=== PATIENT | male | born 1940 | race Caucasian/White ===

== ENCOUNTER 2019-04-17 09:39 | Inpatient (IN) | payer OTHER, MEDICARE ==
[2019-04-17] MEDS ORDERED: NITROGLYCERIN OINT 1 INCH/GM PACKET TOPICAL STA (09:54)
[2019-04-17] MEDS ORDERED: ASPIRIN 81 MG PO STA (09:54)
--- NOTE | 2019-04-17 09:58 | ED ---
General Adult HPI - General Chief complaint: Chest Pain Stated complaint: Chest Pain Time Seen by Provider: 04/17/19 09:45 Source: patient, RN notes reviewed Mode of arrival: ambulatory Limitations: no limitations - History of Present Illness Initial comments: Patient is a pleasant 79-year-old male presenting to the emergency Department with complaints of chest discomfort. Symptoms have been occurring for close to a month. Symptoms occur almost daily. Symptoms occur for sometimes hours at a time. Discomfort is only mild at this point. Symptoms are continuing and not getting better in general. Patient states symptoms do get worse with exertion at times. Patient does have some mild dyspnea at times. No nausea. No diaphoresis. No history of similar symptoms prior to the last month. No leg pain or leg swelling. Discomfort feels like pressure. - Related Data Home Medications Medication Instructions Recorded Confirmed Aspirin EC [Ecotrin Low Dose] 81 mg PO DAILY 04/17/19 04/17/19 Sennosides/Docusate Sodium 1 tab PO DAILY 04/17/19 04/17/19 [Senna-S Laxative Tablet] traMADol HCL [Ultram] 50 mg PO DAILY 04/17/19 04/17/19 Allergies Allergy/AdvReac Type Severity Reaction Status Date / Time No Known Allergies Allergy Verified 04/17/19 10:00 Review of Systems ROS Statement: Those systems with pertinent positive or pertinent negative responses have been documented in the HPI. ROS Other: All systems not noted in ROS Statement are negative. Constitutional: Denies: fever Eyes: Denies: eye pain ENT: Denies: ear pain Respiratory: Reports: as per HPI. Denies: cough Cardiovascular: Reports: chest pain Endocrine: Denies: fatigue Gastrointestinal: Denies: abdominal pain Genitourinary: Denies: dysuria Musculoskeletal: Denies: back pain Skin: Denies: rash Neurological: Denies: weakness Past Medical History Additional Past Medical History / Comment(s): Arthitis History of Any Multi-Drug Resistant Organisms: None Reported Past Surgical History: No Surgical Hx Reported Past Psychological History: No Psychological Hx Reported Smoking Status: Former smoker Past Alcohol Use History: Daily Past Drug Use History: None Reported General Exam Limitations: no limitations General appearance: alert, in no apparent distress Head exam: Present: atraumatic Eye exam: Present: normal appearance, PERRL ENT exam: Present: normal oropharynx Neck exam: Present: normal inspection Respiratory exam: Present: normal lung sounds bilaterally. Absent: chest wall tenderness Cardiovascular Exam: Present: regular rate, normal rhythm Expanded Peripheral pulses: 2+: Radial (R), Radial (L), Posterior Tibialis (R), Posterior Tibialis (L), Dorsalis Pedis (R), Dorsalis Pedis (L) GI/Abdominal exam: Present: soft. Absent: tenderness Extremities exam: Present: normal inspection. Absent: pedal edema, calf tenderness Neurological exam: Present: alert Psychiatric exam: Present: normal affect, normal mood Skin exam: Present: normal color Course Vital Signs 04/17/19 09:41 Temperature 97.4 F L Pulse Rate 64 Respiratory 22 Rate Blood Pressure 189/77 O2 Sat by Pulse 98 Oximetry EKG Findings - EKG Comments: EKG Findings:: Sinus bradycardia 55. MD 178. QRS 126. QT 450. QTC 4:30. Left axis. Left bundle branch block. Nonspecific ST-T. Medical Decision Making - Medical Decision Making Patient reevaluated and resting comfortably in bed. Patient and family updated on results and plan. Case was discussed in detail with Dr. Alvarado, covering for the [facility], who will admit. - Lab Data Result diagrams: 04/17/19 09:59 04/17/19 09:59 Lab Results 04/17/19 04/17/19 04/17/19 Range/Units 09:59 09:59 09:59 WBC 5.1 (3.8-10.6) k/uL RBC 4.82 (4.30-5.90) m/uL Hgb 16.3 (13.0-17.5) gm/dL Hct 48.4 (39.0-53.0) % MCV 100.4 H (80.0-100.0) fL MCH 33.8 (25.0-35.0) pg MCHC 33.7 (31.0-37.0) g/dL RDW 13.5 (11.5-15.5) % Plt Count 193 (150-450) k/uL Neutrophils % 54 % Lymphocytes % 29 % Monocytes % 7 % Eosinophils % 5 % Basophils % 2 % Neutrophils # 2.7 (1.3-7.7) k/uL Lymphocytes # 1.5 (1.0-4.8) k/uL Monocytes # 0.4 (0-1.0) k/uL Eosinophils # 0.3 (0-0.7) k/uL Basophils # 0.1 (0-0.2) k/uL PT 10.5 (9.0-12.0) sec INR 1.0 (<1.2) APTT 25.8 (22.0-30.0) sec Sodium 136 L (137-145) mmol/L Potassium 4.8 (3.5-5.1) mmol/L Chloride 102 (98-107) mmol/L Carbon Dioxide 27 (22-30) mmol/L Anion Gap 7 mmol/L BUN 10 (9-20) mg/dL Creatinine 0.91 (0.66-1.25) mg/dL Est GFR (CKD-EPI)AfAm >90 (>60 ml/min/1.73 sqM) Est GFR (CKD-EPI)NonAf 79 (>60 ml/min/1.73 sqM) Glucose 84 (74-99) mg/dL Calcium 9.5 (8.4-10.2) mg/dL Magnesium 1.8 (1.6-2.3) mg/dL Total Bilirubin 1.3 (0.2-1.3) mg/dL AST 30 (17-59) U/L ALT 16 L (21-72) U/L Alkaline Phosphatase 62 (38-126) U/L Creatine Kinase 39 L (55-170) U/L Troponin I (0.000-0.034) ng/mL NT-Pro-B Natriuret Pep pg/mL Total Protein 7.4 (6.3-8.2) g/dL Albumin 4.2 (3.5-5.0) g/dL 04/17/19 04/17/19 Range/Units 09:59 09:59 WBC (3.8-10.6) k/uL RBC (4.30-5.90) m/uL Hgb (13.0-17.5) gm/dL Hct (39.0-53.0) % MCV (80.0-100.0) fL MCH (25.0-35.0) pg MCHC (31.0-37.0) g/dL RDW (11.5-15.5) % Plt Count (150-450) k/uL Neutrophils % % Lymphocytes % % Monocytes % % Eosinophils % % Basophils % % Neutrophils # (1.3-7.7) k/uL Lymphocytes # (1.0-4.8) k/uL Monocytes # (0-1.0) k/uL Eosinophils # (0-0.7) k/uL Basophils # (0-0.2) k/uL PT (9.0-12.0) sec INR (<1.2) APTT (22.0-30.0) sec Sodium (137-145) mmol/L Potassium (3.5-5.1) mmol/L Chloride (98-107) mmol/L Carbon Dioxide (22-30) mmol/L Anion Gap mmol/L BUN (9-20) mg/dL Creatinine (0.66-1.25) mg/dL Est GFR (CKD-EPI)AfAm (>60 ml/min/1.73 sqM) Est GFR (CKD-EPI)NonAf (>60 ml/min/1.73 sqM) Glucose (74-99) mg/dL Calcium (8.4-10.2) mg/dL Magnesium (1.6-2.3) mg/dL Total Bilirubin (0.2-1.3) mg/dL AST (17-59) U/L ALT (21-72) U/L Alkaline Phosphatase (38-126) U/L Creatine Kinase (55-170) U/L Troponin I <0.012 (0.000-0.034) ng/mL NT-Pro-B Natriuret Pep 537 pg/mL Total Protein (6.3-8.2) g/dL Albumin (3.5-5.0) g/dL - Radiology Data Radiology results: image reviewed (X-ray shows no acute process) Disposition Clinical Impression: Chest pain Disposition: ADMITTED IP TO THIS HOSP Is patient prescribed a controlled substance at d/c from ED?: No Referrals: [facility],Clinic [Primary Care Provider] - 1-2 days Decision Time: 11:59
--- NOTE | 2019-04-17 10:22 | XR ---
EXAMINATION TYPE: XR chest 2V DATE OF EXAM: 04/17/2019 COMPARISON: NONE HISTORY: Chest pain. TECHNIQUE: Frontal and lateral views of the chest are obtained. FINDINGS: Some patchy bibasilar scarring and/or atelectasis is present. There is no suspicious focal air space opacity, pleural effusion, or pneumothorax seen. The cardiac silhouette size is within no rmal limits. The osseous structures are intact. IMPRESSION: No suspicious acute cardiopulmonary process.
[2019-04-17 10:23] LABS: Prothrombin Time 10.5 sec (9.0-12.0)
[2019-04-17 10:24] LABS: Partial Thromboplastin Time 25.8 sec (22.0-30.0)
[2019-04-17 10:29] LABS: Basophils # (A) 0.1 k/uL (0-0.2); Basophils % (A) 2 %; Eosinophils # (A) 0.3 k/uL (0-0.7); Eosinophils % (A) 5 %; HCT 48.4 % (39.0-53.0); HGB 16.3 gm/dL (13.0-17.5); Lymphocytes # (A) 1.5 k/uL (1.0-4.8); Lymphocytes % (A) 29 %; MCH 33.8 pg (25.0-35.0); MCHC 33.7 g/dL (31.0-37.0); MCV 100.4 fL (80.0-100.0); Mean Platelet Volume 7.7; Monocytes # (A) 0.4 k/uL (0-1.0); Monocytes % (A) 7 %; Neutrophils # (A) 2.7 k/uL (1.3-7.7); Neutrophils % (A) 54 %; Platelet Count 193 k/uL (150-450); RBC 4.82 m/uL (4.30-5.90); RDW 13.5 % (11.5-15.5); WBC 5.1 k/uL (3.8-10.6)
[2019-04-17 10:30] LABS: ALT 16 U/L (21-72); AST 30 U/L (17-59); African American GFR (CKD) >90 (>60 ml/min/1.73 sqM); Albumin 4.2 g/dL (3.5-5.0); Alkaline Phosphatase 62 U/L (38-126); Anion Gap 7 mmol/L; Blood Urea Nitrogen 10 mg/dL (9-20); Calcium 9.5 mg/dL (8.4-10.2); Carbon Dioxide 27 mmol/L (22-30); Chloride 102 mmol/L (98-107); Creatine Kinase 39 U/L (55-170); Glucose 84 mg/dL (74-99); Magnesium 1.8 mg/dL (1.6-2.3); Sodium 136 mmol/L (137-145); Total Bilirubin 1.3 mg/dL (0.2-1.3); Total Protein 7.4 g/dL (6.3-8.2)
[2019-04-17 11:03] LABS: Potassium 4.8 mmol/L (3.5-5.1)
[2019-04-17] MEDS ORDERED: NITROGLYCERIN SL TABS 0.4 MG TAB SUBLINGUAL PRN (11:55)
[2019-04-17] MEDS ORDERED: PANTOPRAZOLE 40 MG TABLET PO STA (12:39)
--- NOTE | 2019-04-17 12:59 | P.HPIM ---
History of Present Illness 79-year-old very pleasant gentleman came in with complaints of chest discomfort has been going on for about a month on and off whenever he has discomfort it lasts for hours in the retrosternal area without any radiation anywhere mild pressure-like sensation denied any lightheadedness shadows of breath lightheadedness diaphoresis associated with that. Patient denied any pruritic competent of chest pain denied any association with food. Patient or any cough or fever. Patient facet of troponin is negative, patient had a left bundle branch block on the EKG although I do not have any old EKG to compare with Will make cardiology aware of this. Review of Systems REVIEW OF SYSTEMS: CONSTITUTIONAL: No fever, no malaise, no fatigue. HEENT: No recent visual problems or hearing problems. Denied any sore throat. CARDIOVASCULAR: No orthopnea, PND, no palpitations, no syncope. PULMONARY: No shortness of breath, no cough, no hemoptysis. GASTROINTESTINAL: No diarrhea, no nausea, no vomiting, no abdominal pain. NEUROLOGICAL: No headaches, no weakness, no numbness. HEMATOLOGICAL: Denies any bleeding or petechiae. GENITOURINARY: Denies any burning micturition, frequency, or urgency. MUSCULOSKELETAL/RHEUMATOLOGICAL: Denies any joint pain, swelling, or any muscle pain. ENDOCRINE: Denies any polyuria or polydipsia. The rest of the 14-point review of systems is negative. Past Medical History Additional Past Medical History / Comment(s): Arthitis History of Any Multi-Drug Resistant Organisms: None Reported Past Surgical History: No Surgical Hx Reported Past Psychological History: No Psychological Hx Reported Smoking Status: Former smoker Past Alcohol Use History: Daily Past Drug Use History: None Reported Medications and Allergies Home Medications Medication Instructions Recorded Confirmed Type Aspirin EC [Ecotrin Low Dose] 81 mg PO DAILY 04/17/19 04/17/19 History Sennosides/Docusate Sodium 1 tab PO DAILY 04/17/19 04/17/19 History [Senna-S Laxative Tablet] traMADol HCL [Ultram] 50 mg PO DAILY 04/17/19 04/17/19 History Allergies Allergy/AdvReac Type Severity Reaction Status Date / Time No Known Allergies Allergy Verified 04/17/19 10:00 Physical Exam Vitals: Vital Signs Temp Pulse Pulse Resp BP BP Pulse Ox 04/17/19 12:28 97.5 F L 60 18 197/65 04/17/19 12:00 98.0 F 04/17/19 11:58 60 16 166/75 100 04/17/19 09:41 97.4 F L 64 22 189/77 98 Intake and Output 04/16/19 04/17/19 04/17/19 22:59 06:59 14:59 Other: Weight 65.771 kg PHYSICAL EXAMINATION: GENERAL: The patient is alert and oriented x3, not in any acute distress. Well developed, well nourished. HEENT: Pupils are round and equally reacting to light. EOMI. No scleral icterus. No conjunctival pallor. Normocephalic, atraumatic. No pharyngeal erythema. No thyromegaly. CARDIOVASCULAR: S1 and S2 present. No murmurs, rubs, or gallops. PULMONARY: Chest is clear to auscultation, no wheezing or crackles. ABDOMEN: Soft, nontender, nondistended, normoactive bowel sounds. No palpable organomegaly. MUSCULOSKELETAL: No joint swelling or deformity. EXTREMITIES: No cyanosis, clubbing, or pedal edema. NEUROLOGICAL: Gross neurological examination did not reveal any focal deficits. SKIN: No rashes. Results CBC & Chem 7: 04/17/19 09:59 04/17/19 09:59 Labs: Abnormal Lab Results - Last 24 Hours (Table) 04/17/19 04/17/19 Range/Units 09:59 09:59 MCV 100.4 H (80.0-100.0) fL Sodium 136 L (137-145) mmol/L ALT 16 L (21-72) U/L Creatine Kinase 39 L (55-170) U/L Assessment and Plan Plan: -Chest pain we'll rule out unstable angina, acute coronary syndromes, had left bundle branch block on the EKG no evidence this is new although there is no EKG to compare with cardiology was consulted troponin is negative and 2 more sets of troponins and EKGs will be obtained. Elevated blood pressure: We'll monitor before I start him on any medications -Elevated MCV will obtain a B12 level although patient is not anemic his probably hemoconcentrated
[2019-04-17] MEDS: LOSARTAN 50 MG TAB PO SCH (13:08)
--- NOTE | 2019-04-17 13:11 | P.CRDCN ---
History of Present Illness History of present illness: This is a pleasant 79-year-old male past medical history significant for arthritis, former nicotine dependence and daily alcohol intake. He denies prior history of coronary artery disease, hypertension, dyslipidemia or diabetes mellitus. We have been asked to see him in consultation for chest pain. He states intermittently for the last 1-month he has been having a pressure sens ation in the anterior chest. The discomfort typically starts at some point in the morning and persists throughout the day with no specific aggravating or alleviating factors. He denies radiation or movement of the pain to the arm, back, neck or jaw. He denies associated shortness of breath, dizziness, nausea, vomiting, palpitations or diaphoresis. He is seen and examined sitting up in bed in no acute distress. He does feel pressure in his chest currently that is mild. Nitropaste applied per ED with no relief to speak of. EKG reveals sinus bradycardia, heart rate 55, left axis deviation and left bundle branch block. No old EKG for comparison. Chest xray negative for an acute cardiopulmonary process. Laboratory data reviewed, CBC unremarkable, sodium 136, potassium 4.8, creatinine 0.91, magnesium 1.8, cardiac enzymes negative x1, proBNP 537. Daily cardiac meds include aspirin 325 mg daily. No old records to review. At the time of my exam: CONSTITUTIONAL: Denies fever. Denies chills. EYES: Denies blurred vision. Denies vision changes. Denies eye pain. EARS, NOSE, MOUTH & THROAT: Denies headache. Denies sore throat. Denies ear pain. CARDIOVASCULAR: Complains of chest pain. Denies shortness of breath. Denies orthopnea. Denies PND. Denies palpitations. RESPIRATORY: Denies cough. GASTROINTESTINAL: Denies abdominal pain. Denies diarrhea. Denies constipation. Denies nausea. Denies vomiting. MUSCULOSKELETAL: Denies myalgias. INTEGUMENTARY: Denies pruitis. Denies rash. NEUROLOGIC: Denies numbness. Denies tingling. Denies weakness. PSYCHIATRIC: Denies anxiety. Denies depression. ENDOCRINE: Denies fatigue. Denies weight change. Denies polydipsia. Denies polyurina. GENITOURINARY: Denies burning, hematuria or urgency with micturation. HEMATOLOGIC: Denies history of anemia. Denies bleeding. Blood pressure 197/65 heart rate 60 afebrile maintaining oxygen saturation on room air GENERAL: This is a 79-year-old male in no apparent distress at the time of my examination. HEENT: Head is atraumatic, normocephalic. Pupils are equal, round. Sclerae anicteric. Conjunctivae are clear. Mucous membranes of the mouth are moist. Neck is supple. There is no jugular venous distention. No carotid bruit is heard. LUNGS: Clear to auscultation no wheezes, rales or rhonchi. No chest wall tenderness is noted on palpation or with deep breathing. HEART: Regular rate and rhythm with systolic ejection murmur at the base and left sternal border, no rubs or gallops. S1 and S2 heard. ABDOMEN: Soft, nontender. Bowel sounds are heard. No organomegaly noted. EXTREMITIES: No evidence of peripheral edema and no calf tenderness noted. VASCULAR: Radial and dorsalis pedis pulses palpated, no evidence of clubbing. NEUROLOGIC: Patient is awake, alert and oriented x3. ASSESSMENT Chest pain, quite constant and atypical for the last 1-month. Systolic murmur. Per the patient he has had a murmur since . Left bundle branch block on EKG, called CT clinic in [place] and they have no prior documented EKG. Daily alcohol intake Former nicotine dependence PLAN Obtain 2D echocardiogram and doppler study to assess cardiac structure and function. Continue to obtain serial cardiac enzymes to rule out an acute event. Initiate on losartan, decrease aspirin to 81 mg daily. Also give protonix 40 mg now and assess for relief of pain. No old EKG for comparison, no EKG at CT in the past. Further recommendations to follow. Will consider stress testing vs coronary angiography tomorrow based on clinical course. Thank you kindly for this consultation. Nurse Practitioner note has been reviewed, I agree with a documented findings and plan of care. Patient was seen and examined. Past Medical History Additional Past Medical History / Comment(s): Arthitis History of Any Multi-Drug Resistant Organisms: None Reported Past Surgical History: No Surgical Hx Reported Past Psychological History: No Psychological Hx Reported Smoking Status: Former smoker Past Alcohol Use History: Daily Past Drug Use History: None Reported Medications and Allergies Home Medications Medication Instructions Recorded Confirmed Type Aspirin EC [Ecotrin Low Dose] 81 mg PO DAILY 04/17/19 04/17/19 History Sennosides/Docusate Sodium 1 tab PO DAILY 04/17/19 04/17/19 History [Senna-S Laxative Tablet] traMADol HCL [Ultram] 50 mg PO DAILY 04/17/19 04/17/19 History Allergies Allergy/AdvReac Type Severity Reaction Status Date / Time No Known Allergies Allergy Verified 04/17/19 10:00 Physical Exam Vitals: Vital Signs Temp Pulse Pulse Resp BP BP Pulse Ox 04/17/19 12:28 97.5 F L 60 18 197/65 04/17/19 12:00 98.0 F 04/17/19 11:58 60 16 166/75 100 04/17/19 09:41 97.4 F L 64 22 189/77 98 Intake and Output 04/16/19 04/17/19 04/17/19 22:59 06:59 14:59 Other: Weight 65.771 kg Results 04/17/19 09:59 04/17/19 09:59 Cardiac Enzymes 04/17/19 04/17/19 Range/Units 09:59 09:59 AST 30 (17-59) U/L Troponin I <0.012 (0.000-0.034) ng/mL Coagulation 04/17/19 Range/Units 09:59 PT 10.5 (9.0-12.0) sec APTT 25.8 (22.0-30.0) sec CBC 04/17/19 Range/Units 09:59 WBC 5.1 (3.8-10.6) k/uL RBC 4.82 (4.30-5.90) m/uL Hgb 16.3 (13.0-17.5) gm/dL Hct 48.4 (39.0-53.0) % Plt Count 193 (150-450) k/uL Comprehensive Metabolic Panel 04/17/19 Range/Units 09:59 Sodium 136 L (137-145) mmol/L Potassium 4.8 (3.5-5.1) mmol/L Chloride 102 (98-107) mmol/L Carbon Dioxide 27 (22-30) mmol/L BUN 10 (9-20) mg/dL Creatinine 0.91 (0.66-1.25) mg/dL Glucose 84 (74-99) mg/dL Calcium 9.5 (8.4-10.2) mg/dL AST 30 (17-59) U/L ALT 16 L (21-72) U/L Alkaline Phosphatase 62 (38-126) U/L Total Protein 7.4 (6.3-8.2) g/dL Albumin 4.2 (3.5-5.0) g/dL Current Medications Generic Name Dose Route Start Last Admin Trade Name Freq PRN Reason Stop Dose Admin Aspirin 325 mg 04/18/19 09:00 Aspirin PO DAILY KENNETH Nitroglycerin 0.4 mg 04/17/19 11:55 Nitrostat SUBLINGUAL Q5M PRN Chest Pain Nitroglycerin 1 inch 04/17/19 18:00 Nitro-Bid Oint TOPICAL Q6HR KENNETH Sodium Chloride 10 ml 04/17/19 21:00 Saline Flush IV BID KENNETH Intake and Output 04/16/19 04/17/19 04/17/19 22:59 06:59 14:59 Other: Weight 65.771 kg Patient Weight 04/18/19 06:59 Weight 65.771 kg 04/17/19 09:59 04/17/19 09:59
[2019-04-17 13:29] VITALS: BMI 22.0
[2019-04-17] MEDS: NITROGLYCERIN OINT 1 INCH/GM PACKET TOPICAL SCH (19:24)
[2019-04-18] MEDS: NITROGLYCERIN OINT 1 INCH/GM PACKET TOPICAL SCH ×2 (00:14→01:47)
[2019-04-18 02:59] LABS: Cholesterol 218 mg/dL (<200); HDL Cholesterol 81 mg/dL (40-60); LDL Cholesterol,Calculated 121 mg/dL (0-99); Triglycerides 80 mg/dL (<150)
--- NOTE | 2019-04-18 08:07 | P.PN ---
Progress Note - Text Progress Note Date: 04/18/19 This is a pleasant 79-year-old gentleman who presented to the hospital with chest discomfort and ruled out for acute coronary event. On follow-up with him today, he denies any chest pain or chest discomfort or shortness of breath. The cardiac enzymes came in to be unremarkable. The chest x-ray did not show any acute abnormalities. The EKG showed BP. I did recommend proceeding with a stress test to rule out severe underlying coronary artery disease. Also I did recommend obtaining an echocardiogram was Doppler. The patient does have murmur at the apex
[2019-04-18] MEDS ORDERED: AMINOPHYLLINE 500 MG/20 ML VIAL IV PRN (08:33)
[2019-04-18] MEDS ORDERED: CAFFEINE CITRATE 60 MG/3 ML VIAL IV PRN (08:33)
[2019-04-18] MEDS ORDERED: DIPYRIDAMOLE IV ONE (08:45)
[2019-04-18] MEDS ORDERED: SODIUM CHLORIDE 0.9% IV ONE (08:45)
[2019-04-18] MEDS ORDERED: ASPIRIN 325 MG TAB PO SCH (09:00)
--- NOTE | 2019-04-18 11:57 | ECHOF ---
Referral Reason:cp, etoh use daily MEASUREMENTS -------- HEIGHT: 172.7 cm WEIGHT: 65.8 kg BP: 197/65 RVIDd: 3.3 cm (< 3.3) IVSd: 1.8 cm (0.6 - 1.1) LVIDd: 3.2 cm (3.9 - 5.3) LVPWd: 1.5 cm (0.6 - 1.1) IVSs: 1.8 cm LVIDs: 2.2 cm LVPWs: 2.2 cm LAESV Index (A-L): 30.08 ml/m Ao Diam: 3.1 cm (2.0 - 3.7) AV Cusp: 1.4 cm (1.5 - 2.6) LA Diam: 4.1 cm (2.7 - 3.8) MV E Krish: 1.05 m/s MV DecT: 169 ms MV A Krish: 1.61 m/s MV E/A Ratio: 0.65 AV maxP.70 mmHg AV meanP.05 mmHg AR PHT: 633 ms RAP: 5.00 mmHg RVSP: 46.01 mmHg FINDINGS -------- Sinus rhythm. The left ventricular size is normal. There is moderate concentric left ventricular hypertrophy. O verall left ventricular systolic function is normal with, an EF between 65 - 70 %. Mitral Doppler i nflow pattern suggests diastolic filling abnormality. The right ventricle is normal in size. Left atrium is mildly dilated by volume. The right atrial size is normal. Interatrial and interventricular septum intact. Mobile interatrial septum. Aortic valve is trileaflet and is moderately thickened. There is qwyu-fr-stpxmvib aortic regurgitat ion. Mild aortic stenosis with peak/mean pressure gradient of 26.70mmHg / 13.05mmHg , the aortic va lve area by continuity equation is 1.4cm. Peak/mean gradient across the valve is 26.70mmHg / 13.05 mmHg. The mitral valve leaflets are moderately thickened. Mild mitral annular calcification present. Mi ld mitral regurgitation is present. Vsat-rm-ajuksyns tricuspid regurgitation present. There is moderate pulmonary hypertension. The r ight ventricular systolic pressure, as measured by Doppler, is 46.01mmHg. There is no pulmonic regurgitation present. The aortic root size is normal. The inferior vena cava was not well visualized. There is no pericardial effusion. CONCLUSIONS -------- 1. Sinus rhythm. 2. The left ventricular size is normal. 3. There is moderate concentric left ventricular hypertrophy. 4. Overall left ventricular systolic function is normal with, an EF between 65 - 70 %. 5. Mitral Doppler inflow pattern suggests diastolic filling abnormality. 6. The right ventricle is normal in size. 7. Left atrium is mildly dilated by volume. 8. The right atrial size is normal. 9. Interatrial and interventricular septum intact. 10. Mobile interatrial septum. 11. Aortic valve is trileaflet and is moderately thickened. 12. There is pdfi-hd-[id number] aortic regurgitation. 13. Mild aortic stenosis with peak/mean pressure gradient of 26.70mmHg / 13.05mmHg , the aortic valve area by continuity equation is 1.4cm. 14. Peak/mean gradient across the valve is 26.70mmHg / 13.05mmHg. 15. The mitral valve leaflets are moderately thickened. 16. Mild mitral annular calcification present. 17. Mild mitral regurgitation is present. 18. Zbor-oc-twpvyeqr tricuspid regurgitation present. 19. There is moderate pulmonary hypertension. 20. The right ventricular systolic pressure, as measured by Doppler, is 46.01mmHg. 21. There is no pulmonic regurgitation present. 22. The aortic root size is normal. 23. The inferior vena cava was not well visualized. 24. There is no pericardial effusion. WELDING MACHINE OPERATOR ARC: Antonietta Stroud RDCS
[2019-04-18] MEDS: traMADol 50 MG TAB PO SCH (11:58)
[2019-04-18] MEDS: ASPIRIN 81 MG PO SCH (11:58)
[2019-04-18] MEDS: LOSARTAN 50 MG TAB PO SCH (11:58)
[2019-04-18] MEDS: SENNOSIDES-DOCUSATE SODIUM 1 EACH TAB PO SCH (11:58)
--- NOTE | 2019-04-18 12:04 | NM ---
EXAMINATION TYPE: NM stress persantine cardiolit DATE OF EXAM: 04/18/2019 COMPARISON: NONE HISTORY: Chest pain with family history of coronary artery disease and tobacco abuse TECHNIQUE: After the intravenous administration of 9.82 mCi Tc 99m Sestamibi - Cardiolite resting SP ECT images acquired 50 minutes post injection. The patient received 37.5 mg Persantine, 26.4 mCi Tc 99m Sestamibi - Stress images obtained 45 minute s post injection FINDINGS: Review of stress and rest SPECT images demonstrates no distinct perfusion abnormality. Gated analysi s shows normal wall motion with an estimated left ventricular ejection fraction of 72 %. TID is eleva briana at 1.38. Increased ventricular cavity caliber on stress imaging corresponds to the elevated TID v alue. IMPRESSION: Enlargement of the ventricular chamber caliber on stress imaging corresponds to an abnormally elevate d TID that can be seen in balanced 3 vessel ischemia or cardiomyopathy. Coronary angiography could be considered.
--- NOTE | 2019-04-18 12:51 | EST ---
EXERCISE STRESS DATE OF SERVICE: 04/18/2019 AGE: 79 SEX: Male HT: 68" WT: 145 pounds PROTOCOL: Persantine Cardiolite STAGE: DURATION OF EXERCISE: HEART RATE REST: 86 BLOOD PRESSURE REST: 133/58 MAXIMUM HEART RATE ACHIEVED: 89 MAXIMUM BLOOD PRESSURE: 138/64 85% MPHR: 118 100% MPHR: 139 METS: INDICATIONS: Chest pain. CLINICAL INFORMATION: STRESS DATA: Heart rate is 86, pressure is 133/58 mmHg. Baseline EKG showed sinus mechanism with LBBB. There was 37.5 mg of Persantine given. Max heart rate was 89 beats per minute. Maximum pressure was 138/64 mmHg. Clinically the patient did not have any symptoms. The EKG did not show any significant ST or T-wave abnormalities concerning for ischemia. CONCLUSION: 1. Nondiagnostic electrocardiogram stress testing in response to Persantine. 2. Please follow up on the Cardiolite portion on separate report from radiology department. MMODL / IJN: [id number] /
[2019-04-18] MEDS ORDERED: ATORVASTATIN 80 MG TAB PO STA (12:52)
[2019-04-18] MEDS ORDERED: ALPRAZolam 0.5 MG TAB PO PRN (12:52)
[2019-04-18] MEDS ORDERED: ALPRAZolam 0.25 MG TAB PO PRN (12:52)
[2019-04-18] MEDS ORDERED: SODIUM CHLORIDE 0.9% 1,000 ML in EMPTY BAG 1 BAG IV ONE (12:52)
[2019-04-18] MEDS ORDERED: ASPIRIN 81 MG PO ONE (13:00)
--- NOTE | 2019-04-18 13:20 | P.PN ---
Progress Note - Text Stress test results discussed with the patient and his family was at the bedside. We recommend proceeding with cardiac catheterization for definitive diagnosis. I have discussed the risks, benefits and alternative therapies for the above-mentioned procedure and for both sedation/analgesia as well as necessary blood product administration, if indicated, as they pertain to this patient. The patient has indicated understanding and acceptance of the risks and procedures discussed. Questions have been answered appropriately and he is agreeable to move forward with the above stated procedure.
[2019-04-18] MEDS ORDERED: MIDAZOLAM (PF) 2 MG/2 ML VIAL IVP ONE (13:21)
[2019-04-18] MEDS ORDERED: SODIUM CHLORIDE 0.9% 1,000 ML IV ONE (13:22)
[2019-04-18] MEDS ORDERED: LIDOCAINE 2% INJ 20 MG/ML SQ ONE (13:26)
[2019-04-18] MEDS ORDERED: BIVALIRUDIN BOLUS 250 MG/50 ML IV ONE (13:42)
[2019-04-18] MEDS ORDERED: BIVALIRUDIN 250 MG in SODIUM CHLORIDE 0.9% 50 ML IV ONE (13:43)
[2019-04-18] MEDS ORDERED: ADENOSINE 90 MG in SODIUM CHLORIDE 0.9% 60 ML IVP ONE (13:49)
[2019-04-18] MEDS ORDERED: IOPAMIDOL-370 125ML BTL INJ ONE (13:53)
[2019-04-18] MEDS ORDERED: RX INFO: IV CONTRAST WAS GIVEN 1 EACH MISC MISCELLANE PRN (13:54)
[2019-04-18] MEDS ORDERED: SODIUM CHLORIDE 0.9% 1,000 ML IV SCH (14:00)
--- NOTE | 2019-04-18 14:26 | P.PN ---
Subjective Patient given with complaints of chest pain rule out acute currently syndromes after which patient underwent stress test which was abnormal because of which patient will undergo cardiac catheterization today. Patient had elevated MCV because of which obtained a B12 level which was low will give a B12 injection. Constitutional: Denied any fatigue denied any fever. Cardio vascular: denied any chest pain, palpitations Gastrointestinal denied any nausea vomiting Pulmonary: Denied any shortness of breath cough Neurologic denied any new focal deficits All inpatient medications were reviewed and appropriate changes in these medications as dictated in the interval history and assessment and plan. Objective - Vital Signs Vital signs: Vital Signs Temp 97.7 F 04/18/19 11:47 Pulse 77 04/18/19 12:00 Resp 18 04/18/19 12:00 BP 155/73 04/18/19 11:47 Pulse Ox 95 04/18/19 11:47 Intake & Output 04/17/19 04/18/19 04/18/19 18:59 06:59 18:59 Intake Total 134 Balance 134 Weight 65.771 kg 65.771 kg Intake: IV 134 Other: # Voids 1 - Exam PHYSICAL EXAMINATION: GENERAL: The patient is alert and oriented x3, not in any acute distress. Well developed, well nourished. HEENT: Pupils are round and equally reacting to light. EOMI. No scleral icterus. No conjunctival pallor. Normocephalic, atraumatic. No pharyngeal erythema. No thyromegaly. CARDIOVASCULAR: S1 and S2 present. No murmurs, rubs, or gallops. PULMONARY: Chest is clear to auscultation, no wheezing or crackles. ABDOMEN: Soft, nontender, nondistended, normoactive bowel sounds. No palpable organomegaly. MUSCULOSKELETAL: No joint swelling or deformity. EXTREMITIES: No cyanosis, clubbing, or pedal edema. NEUROLOGICAL: Gross neurological examination did not reveal any focal deficits. SKIN: No rashes. - Labs CBC & Chem 7: 04/17/19 09:59 04/17/19 09:59 Labs: Abnormal Lab Results - Last 24 Hours (Table) 04/17/19 04/17/19 Range/Units :59 16:24 Cholesterol 218 H (<200) mg/dL LDL Cholesterol, Calc 121 H (0-99) mg/dL HDL Cholesterol 81 H (40-60) mg/dL Vitamin B12 171.0 L (200.0-944.0) pg/mL Assessment and Plan Plan: -Chest pain: Patient has pasta stress test. Patient will undergo cardiac catheterization today. Elevated blood pressure: Was started on antidepressant medications. Cardiology with improved blood pressure. -Elevated MCV B-12 levels are extremely low, will order B12 injection.
[2019-04-18] MEDS ORDERED: CYANOCOBALAMIN 1,000 MCG/ML 1 ML VIAL IM ONE (15:00)
--- NOTE | 2019-04-18 19:48 | CC ---
CARDIAC CATHETERIZATION REPORT PERFORMING PHYSICIAN: Marino Perea MD, dashboard developer. PROCEDURES PERFORMED: 1. Selective right and left coronary angiogram. 2. Left heart catheterization. 3. Fractional flow reserve (FFR) of the left anterior descending artery. INDICATION: This is a pleasant 79-year-old gentleman with hypertension and dyslipidemia who presented to the hospital with chest discomfort and ruled out for acute coronary event. He underwent a myocardial perfusion imaging stress test and that revealed signs of transient ischemic dilatation of the left ventricle, normally concerning for severe triple-vessel coronary artery disease or left main coronary artery disease. Because of that, a heart catheterization was advised. APPROACH: Right common femoral artery. COMPLICATIONS: None. LEVEL OF SEDATION: Moderate, with sedation length of 27 minutes. PROCEDURE DESCRIPTION: After obtaining informed consent, the patient was brought to the cardiac petroleum laboratory technician. The right common femoral artery was cannulated using micropuncture technique. The micropuncture wire passed easily. Then I placed a 6-Monegasque sheath in the right common femoral artery. Subsequently I did selective right and left coronary angiogram using JR4 and JL4 catheters. Left heart catheterization was performed. After that I did left heart catheterization using a 6-Monegasque pigtail catheter. After that I did FFR of the LAD. Please see separate paragraph for that. SELECTIVE CORONARY ANGIOGRAM: 1. The right coronary artery is a small- to medium-caliber vessel and is a nondominant vessel. It is angiographically normal. 2. The left main is calcified and seems to be angiographically normal. It bifurcates into a dominant left circumflex and left anterior descending artery. 3. The left circumflex is a large-caliber vessel. It is a nondominant vessel. The proximal circumflex appeared to have mild disease only. The mid circumflex has mild disease only as well and the circumflex distally appeared to be angiographically normal and bifurcates into PDA and PLV branches. Both appeared to be angiographically normal. The circumflex gives rise to first and branches. They have mild disease only. 4. The LAD. The proximal LAD appeared to be angiographically normal. The mid LAD has a tubular lesion that appeared to be in the range of 50% to 60% and we did FFR that came in to be nonischemic at 0.86. The LAD distally appeared to be normal. The LAD gives rise to the first diagonal branch, which is a large-caliber vessel and seems to be angiographically normal. HEMODYNAMICS: The left ventricular end-diastolic pressure was about 10 mmHg without significant gradient across the aortic valve. FFR OF THE LAD: Anticoagulation was initiated using Angiomax. After zeroing the Doppler wire and equalizing between the Doppler wire and the guiding catheter, which was a JL3.5 guiding catheter, we did an FFR per IV adenosine infusion and the FFR came in to be at 0.86, which is nonischemic. CONCLUSION: Intermediate disease involving the mid LAD. FFR was applied and came in to be nonischemic at 0.86. POST-PROCEDURE MANAGEMENT: 1. Maximize medical treatment. 2. Aggressive cholesterol control. 3. Follow up with the patient. MMODL / IJN: [id number] /
[2019-04-18] MEDS: METOPROLOL TARTRATE 25 MG TAB PO SCH (20:26)
[2019-04-19] MEDS: traMADol 50 MG TAB PO SCH (08:03)
[2019-04-19] MEDS: ASPIRIN 81 MG PO SCH (08:03)
[2019-04-19] MEDS: SENNOSIDES-DOCUSATE SODIUM 1 EACH TAB PO SCH (08:03)
[2019-04-19] MEDS: LOSARTAN 50 MG TAB PO SCH (08:03)
[2019-04-19] MEDS: METOPROLOL TARTRATE 25 MG TAB PO SCH (08:03)
[2019-04-19 08:47] VITALS: BP 103/61; PULSE 60; RESP 16; TEMP 98.3
[2019-04-19] MEDS ORDERED: ATORVASTATIN 40 MG TAB PO SCH (09:00)
--- NOTE | 2019-04-19 12:19 | PN ---
PROGRESS NOTE Diogenes is an 79-year-old gentleman who is admitted to hospital with chest pain and underwent cardiac catheterization. He also had a stress test. Cardiac catheterization revealed intermediate lesion within the mid LAD with the FFR came out at 0.86, which was nonischemic and patient was advised medical therapy. This morning patient is doing well and is free of symptoms. PHYSICAL EXAMINATION: On exam, comfortable at rest. Vital signs are stable. Groin is free of bleeding, bruit, hematoma. Foot pulses are intact. LABS: Labs show a hemoglobin of 16.3, potassium is 4.8. ASSESSMENT: Precordial chest pain, status post cardiac cath, advised medical therapy. The patient will be discharged home on aspirin, Lipitor, Cozaar, and Lopressor. Follow up with Dr. Perea in the office. MMODL / IJN: [id number] /
--- NOTE | 2019-04-19 13:44 | P.DS ---
Providers Date of admission: 04/18/19 15:46 Attending physician: Shine Alvarado Consults: 04/17/19 11:55 Consult Physician Urgent Consulting Provider: William Cazares Consult Reason/Comments: cp Do you want consulting provider notified?: Yes Primary care physician: [facility] Course: 79-year-old that came in with chest pain had's sisters underwent cardiac catheterization which showed some atherosclerotic vascular disease but there is no occlusive disease that will require any intervention because of which patient will be discharged on low-dose of metoprolol long-acting and statin patient will not require any other antidepressant medication. PHYSICAL EXAMINATION: GENERAL: The patient is alert and oriented x3, not in any acute distress. Well developed, well nourished. HEENT: Pupils are round and equally reacting to light. EOMI. No scleral icterus. No conjunctival pallor. Normocephalic, atraumatic. No pharyngeal erythema. No thyromegaly. CARDIOVASCULAR: S1 and S2 present. No murmurs, rubs, or gallops. PULMONARY: Chest is clear to auscultation, no wheezing or crackles. ABDOMEN: Soft, nontender, nondistended, normoactive bowel sounds. No palpable organomegaly. MUSCULOSKELETAL: No joint swelling or deformity. EXTREMITIES: No cyanosis, clubbing, or pedal edema. NEUROLOGICAL: Gross neurological examination did not reveal any focal deficits. SKIN: No rashes. His refer to my progress note for further details of hospitalization course and other medical problems are addressed here. Plan - Discharge Summary Discharge Rx Participant: No New Discharge Prescriptions: New Atorvastatin [Lipitor] 40 mg PO DAILY #30 tab Nitroglycerin Sl Tabs [Nitrostat] 0.4 mg SUBLINGUAL Q5M PRN #30 tab PRN Reason: Chest Pain Metoprolol Succinate (ER) [Toprol Xl] 25 mg PO DAILY #30 tab Continue traMADol HCL [Ultram] 50 mg PO DAILY Aspirin EC [Ecotrin Low Dose] 81 mg PO DAILY Sennosides/Docusate Sodium [Senna-S Laxative Tablet] 1 tab PO DAILY Discharge Medication List Aspirin EC [Ecotrin Low Dose] 81 mg PO DAILY 04/17/19 [History] Sennosides/Docusate Sodium [Senna-S Laxative Tablet] 1 tab PO DAILY 09/12/19 [History] traMADol HCL [Ultram] 50 mg PO DAILY 04/17/19 [History] Atorvastatin [Lipitor] 40 mg PO DAILY #30 tab 04/19/19 [Rx] Metoprolol Succinate (ER) [Toprol Xl] 25 mg PO DAILY #30 tab 04/19/19 [Rx] Nitroglycerin Sl Tabs [Nitrostat] 0.4 mg SUBLINGUAL Q5M PRN #30 tab 04/19/19 [Rx] Follow up Appointment(s)/Referral(s): Marino Perea MD [STAFF PHYSICIAN] - 04/22/19 4:45 pm (APPOINTMENT MADE ON @ 4:45PM) [facility],Clinic [Primary Care Provider] - 3 Days Patient Instructions/Handouts: *Surgery [facility] - After Heart Catheterization - Creative Services Writer Instructions Activity/Diet/Wound Care/Special Instructions: *NO LIFTING, PUSHING, OR PULLING ANYTHING OVER 10 POUNDS FOR 5 DAYS. *NO DRIVING FOR 3 DAYS *YOU CAN SHOWER TOMORROW BUT DO NOT SUBMERSE YOUR PUNCTURE SITE IN WATER TO PREVENT INFECTION - SO NOT TUB BATHS, POOLS, HOT TUBS, DISHES....ETC. *ANY SIGNS OF BLEEDING (HARDNESS, SWELLING, OR EXCESSIVE BRUISING) HOLD DIRECT PRESSURE ON YOUR PUNCTURE SITE AND COME TO THE NEAREST EMERGENCY ROOM TO GET YOUR PUNCTURE SITE LOOKED AT - DO NOT DRIVE YOURSELF! EITHER CALL EMS OR HAVE SOMEONE DRIVE YOU! Discharge Disposition: HOME SELF-CARE
== END 2019-04-19 10:21 | disposition home or self-care (01) | DRG 287 ==
LOC: EC 09:39 → 1SOBS 11:55 → OBSVTOIN 04-18 15:46
PROVIDERS: ADMIT Internal Medicine; ATTEND Internal Medicine
PROC: 4A033BC Measurement of Arterial Pressure, Coronary, Percutaneous Approach (ICD-10-PCS; 2019-04-18)
PROC: 4A023N7 Measurement of Cardiac Sampling and Pressure, Left Heart, Percutaneous Approach (ICD-10-PCS; principal; 2019-04-18 13:15)
PROC: B2111ZZ Fluoroscopy of Multiple Coronary Arteries using Low Osmolar Contrast (ICD-10-PCS; 2019-04-18 13:15)
DX: I25.10 Atherosclerotic heart disease of native coronary artery without angina pectoris (principal); I44.7 Left bundle-branch block, unspecified; R00.1 Bradycardia, unspecified; I10 Essential (primary) hypertension; E78.5 Hyperlipidemia, unspecified; M19.90 Unspecified osteoarthritis, unspecified site; Z79.82 Long term (current) use of aspirin; Z79.891 Long term (current) use of opiate analgesic; Z79.899 Other long term (current) drug therapy; Z87.891 Personal history of nicotine dependence
CPT/HCPCS: 36415; 71046; 78452; 80053; 80061; 82550; 82607; 83735; 83880; 84484; 85025; 85610; 85730; 93005; 93017; 93306; 93458; 93571; 99285

== ENCOUNTER 2021-11-30 14:14 | Observation (INO) | payer MEDICARE, OTHER ==
[2021-11-30] MEDS ORDERED: ALBUTEROL HFA INHALER INHALATION STA (16:56)
--- NOTE | 2021-11-30 16:58 | ED ---
General Adult HPI - General Chief complaint: Upper Respiratory Infection Stated complaint: Sent by [facility] Fluid in Left Lung Time Seen by Provider: 11/30/21 16:48 Source: patient, family, RN notes reviewed Mode of arrival: ambulatory Limitations: no limitations - History of Present Illness Initial comments: Patient is a pleasant 81-year-old male presents emergency Department with cough and shortness of breath. Onset of symptoms was around 4 days ago. No history of similar symptoms previously. No history of CHF or COPD. No fevers. Cough is been nonproductive. Symptoms do worsen somewhat with exertion with some exertional fatigue. Pulse ox was 95% at urgent care however with ambulation dropped to 85%. - Related Data Home Medications Medication Instructions Recorded Confirmed Aspirin EC [Ecotrin Low Dose] 81 mg PO DAILY 04/17/19 11/30/21 Previous Rx's Medication Instructions Recorded Atorvastatin [Lipitor] 40 mg PO DAILY #30 tab 04/19/19 Metoprolol Succinate (ER) [Toprol 25 mg PO DAILY #30 tab 04/19/19 Xl] Nitroglycerin Sl Tabs [Nitrostat] 0.4 mg SUBLINGUAL Q5M PRN #30 tab 04/19/19 Allergies Allergy/AdvReac Type Severity Reaction Status Date / Time No Known Allergies Allergy Verified 11/30/21 18:07 Review of Systems ROS Statement: Those systems with pertinent positive or pertinent negative responses have been documented in the HPI. ROS Other: All systems not noted in ROS Statement are negative. Constitutional: Denies: fever Eyes: Denies: eye pain ENT: Denies: ear pain Respiratory: Reports: as per HPI, cough, dyspnea Cardiovascular: Denies: chest pain Endocrine: Reports: fatigue Gastrointestinal: Denies: abdominal pain Genitourinary: Denies: dysuria Musculoskeletal: Denies: back pain Skin: Denies: rash Neurological: Denies: weakness Past Medical History Past Medical History: Osteoarthritis (OA) Additional Past Medical History / Comment(s): Arthritis especially in bilateral hands, bone spurs in neck History of Any Multi-Drug Resistant Organisms: None Reported Past Surgical History: Heart Catheterization, Hernia Repair Additional Past Surgical History / Comment(s): Colonoscopy with benign polypectomy, R inguinal repair, bilateral cataract removal/lens implants. Past Anesthesia/Blood Transfusion Reactions: No Reported Reaction Past Psychological History: No Psychological Hx Reported Smoking Status: Former smoker Past Alcohol Use History: Daily Past Drug Use History: None Reported - Past Family History Father Family Medical History: No Reported History Additional Family Medical History / Comment(s): Father was healthy and at the age of 86yrs. Mother Family Medical History: No Reported History Additional Family Medical History / Comment(s): Mother was healthy. She at the age of 88yrs. General Exam Limitations: no limitations General appearance: alert, in no apparent distress Head exam: Present: normocephalic Eye exam: Present: normal appearance Neck exam: Present: normal inspection Respiratory exam: Present: normal lung sounds bilaterally Cardiovascular Exam: Present: regular rate, normal rhythm GI/Abdominal exam: Present: soft. Absent: tenderness Extremities exam: Present: normal inspection. Absent: pedal edema, calf tenderness Neurological exam: Present: alert Psychiatric exam: Present: normal affect, normal mood Skin exam: Present: normal color Course Vital Signs 11/30/21 11/30/21 15:10 17:00 Pulse Rate 79 Respiratory 18 20 Rate Blood Pressure 127/69 O2 Sat by Pulse 97 Oximetry EKG Findings - EKG Comments: EKG Findings:: Sinus rhythm at 72. First-degree AV block with FL of 210. QRS 135. QT 410. QTc 433. Normal axis. (Block. No acute ST change. Medical Decision Making - Medical Decision Making Patient reevaluated and resting complain bed. Patient and family updated on results and plan. Case discussed with Dr. clement, who will admit this va pt Patient also discussed as 80% with ambulation in the emergency department, similar to clinic report prior to arrival. - Lab Data Result diagrams: 11/30/21 17:19 11/30/21 17:19 Lab Results 11/30/21 11/30/21 11/30/21 Range/Units 17:19 17:19 17:19 WBC 8.6 (3.8-10.6) k/uL RBC 4.28 L (4.30-5.90) m/uL Hgb 14.4 (13.0-17.5) gm/dL Hct 42.1 (39.0-53.0) % MCV 98.4 (80.0-100.0) fL MCH 33.8 (25.0-35.0) pg MCHC 34.3 (31.0-37.0) g/dL RDW 14.4 (11.5-15.5) % Plt Count 186 (150-450) k/uL MPV 7.6 Neutrophils % 78 % Lymphocytes % 13 % Monocytes % 6 % Eosinophils % 2 % Basophils % 0 % Neutrophils # 6.7 (1.3-7.7) k/uL Lymphocytes # 1.1 (1.0-4.8) k/uL Monocytes # 0.5 (0-1.0) k/uL Eosinophils # 0.2 (0-0.7) k/uL Basophils # 0.0 (0-0.2) k/uL PT (9.0-12.0) sec INR (<1.2) APTT (22.0-30.0) sec D-Dimer (<0.60) mg/L FEU Sodium (137-145) mmol/L Potassium (3.5-5.1) mmol/L Chloride (98-107) mmol/L Carbon Dioxide (22-30) mmol/L Anion Gap mmol/L BUN (9-20) mg/dL Creatinine (0.66-1.25) mg/dL Est GFR (CKD-EPI)AfAm (>60 ml/min/1.73 sqM) Est GFR (CKD-EPI)NonAf (>60 ml/min/1.73 sqM) Glucose (74-99) mg/dL Plasma Lactic Acid Lyle (0.7-2.0) mmol/L Calcium (8.4-10.2) mg/dL Total Bilirubin (0.2-1.3) mg/dL AST (17-59) U/L ALT (4-49) U/L Alkaline Phosphatase (38-126) U/L Troponin I (0.000-0.034) ng/mL NT-Pro-B Natriuret Pep pg/mL Total Protein (6.3-8.2) g/dL Albumin (3.5-5.0) g/dL Coronavirus (PCR) Not Detected (Not Detectd) Influenza Type A RNA Not Detected (Not Detectd) Influenza Type B (PCR) Not Detected (Not Detectd) 11/30/21 11/30/21 11/30/21 Range/Units 17:19 17:19 17:19 WBC (3.8-10.6) k/uL RBC (4.30-5.90) m/uL Hgb (13.0-17.5) gm/dL Hct (39.0-53.0) % MCV (80.0-100.0) fL MCH (25.0-35.0) pg MCHC (31.0-37.0) g/dL RDW (11.5-15.5) % Plt Count (150-450) k/uL MPV Neutrophils % % Lymphocytes % % Monocytes % % Eosinophils % % Basophils % % Neutrophils # (1.3-7.7) k/uL Lymphocytes # (1.0-4.8) k/uL Monocytes # (0-1.0) k/uL Eosinophils # (0-0.7) k/uL Basophils # (0-0.2) k/uL PT 9.7 (9.0-12.0) sec INR 0.9 (<1.2) APTT 25.2 (22.0-30.0) sec D-Dimer 0.32 (<0.60) mg/L FEU Sodium 130 L (137-145) mmol/L Potassium 4.6 (3.5-5.1) mmol/L Chloride 97 L (98-107) mmol/L Carbon Dioxide 25 (22-30) mmol/L Anion Gap 8 mmol/L BUN 12 (9-20) mg/dL Creatinine 0.89 (0.66-1.25) mg/dL Est GFR (CKD-EPI)AfAm >90 (>60 ml/min/1.73 sqM) Est GFR (CKD-EPI)NonAf 79 (>60 ml/min/1.73 sqM) Glucose 94 (74-99) mg/dL Plasma Lactic Acid Lyle 1.3 (0.7-2.0) mmol/L Calcium 8.9 (8.4-10.2) mg/dL Total Bilirubin 2.3 H (0.2-1.3) mg/dL AST 28 (17-59) U/L ALT 16 (4-49) U/L Alkaline Phosphatase 83 (38-126) U/L Troponin I (0.000-0.034) ng/mL NT-Pro-B Natriuret Pep pg/mL Total Protein 7.1 (6.3-8.2) g/dL Albumin 4.0 (3.5-5.0) g/dL Coronavirus (PCR) (Not Detectd) Influenza Type A RNA (Not Detectd) Influenza Type B (PCR) (Not Detectd) 11/30/21 11/30/21 Range/Units 17:19 17:19 WBC (3.8-10.6) k/uL RBC (4.30-5.90) m/uL Hgb (13.0-17.5) gm/dL Hct (39.0-53.0) % MCV (80.0-100.0) fL MCH (25.0-35.0) pg MCHC (31.0-37.0) g/dL RDW (11.5-15.5) % Plt Count (150-450) k/uL MPV Neutrophils % % Lymphocytes % % Monocytes % % Eosinophils % % Basophils % % Neutrophils # (1.3-7.7) k/uL Lymphocytes # (1.0-4.8) k/uL Monocytes # (0-1.0) k/uL Eosinophils # (0-0.7) k/uL Basophils # (0-0.2) k/uL PT (9.0-12.0) sec INR (<1.2) APTT (22.0-30.0) sec D-Dimer (<0.60) mg/L FEU Sodium (137-145) mmol/L Potassium (3.5-5.1) mmol/L Chloride (98-107) mmol/L Carbon Dioxide (22-30) mmol/L Anion Gap mmol/L BUN (9-20) mg/dL Creatinine (0.66-1.25) mg/dL Est GFR (CKD-EPI)AfAm (>60 ml/min/1.73 sqM) Est GFR (CKD-EPI)NonAf (>60 ml/min/1.73 sqM) Glucose (74-99) mg/dL Plasma Lactic Acid Lyle (0.7-2.0) mmol/L Calcium (8.4-10.2) mg/dL Total Bilirubin (0.2-1.3) mg/dL AST (17-59) U/L ALT (4-49) U/L Alkaline Phosphatase (38-126) U/L Troponin I 0.014 (0.000-0.034) ng/mL NT-Pro-B Natriuret Pep 1190 pg/mL Total Protein (6.3-8.2) g/dL Albumin (3.5-5.0) g/dL Coronavirus (PCR) (Not Detectd) Influenza Type A RNA (Not Detectd) Influenza Type B (PCR) (Not Detectd) - Radiology Data Radiology results: image reviewed (Chest x-ray shows left lower lobe infiltrate) Disposition Clinical Impression: Pneumonia, Hypoxia Disposition: ADMITTED IP TO THIS HOSP Is patient prescribed a controlled substance at d/c from ED?: No Referrals: [facility],Clinic [Primary Care Provider] - 1-2 days Time of Disposition: 19:15
[2021-11-30 17:32] LABS: Basophils % (A) 0 %; Eosinophils # (A) 0.2 k/uL (0-0.7); Eosinophils % (A) 2 %; HCT 42.1 % (39.0-53.0); HGB 14.4 gm/dL (13.0-17.5); Lymphocytes # (A) 1.1 k/uL (1.0-4.8); Lymphocytes % (A) 13 %; MCH 33.8 pg (25.0-35.0); MCHC 34.3 g/dL (31.0-37.0); MCV 98.4 fL (80.0-100.0); Mean Platelet Volume 7.6; Monocytes # (A) 0.5 k/uL (0-1.0); Monocytes % (A) 6 %; Neutrophils # (A) 6.7 k/uL (1.3-7.7); Neutrophils % (A) 78 %; Platelet Count 186 k/uL (150-450); RBC 4.28 m/uL (4.30-5.90); RDW 14.4 % (11.5-15.5); WBC 8.6 k/uL (3.8-10.6)
[2021-11-30 17:43] LABS: ALT 16 U/L (4-49); AST 28 U/L (17-59); African American GFR (CKD) >90 (>60 ml/min/1.73 sqM); Alkaline Phosphatase 83 U/L (38-126); Anion Gap 8 mmol/L; Blood Urea Nitrogen 12 mg/dL (9-20); Calcium 8.9 mg/dL (8.4-10.2); Carbon Dioxide 25 mmol/L (22-30); Chloride 97 mmol/L (98-107); Glucose 94 mg/dL (74-99); Non-African American GFR(CKD) 79 (>60 ml/min/1.73 sqM); Potassium 4.6 mmol/L (3.5-5.1); Sodium 130 mmol/L (137-145); Total Bilirubin 2.3 mg/dL (0.2-1.3); Total Protein 7.1 g/dL (6.3-8.2)
--- NOTE | 2021-11-30 17:56 | XR ---
EXAMINATION TYPE: XR chest 2V DATE OF EXAM: 11/30/2021 COMPARISON: 04/17/2019 HISTORY: Chest pain TECHNIQUE: 2 views FINDINGS: Heart and mediastinum are normal. There is possible minimal infiltrate left lower lobe. Bon y thorax is intact.. IMPRESSION: Possible left lower lobe minimal infiltrate is a change compared to the old exam.
[2021-11-30 18:03] LABS: INR 0.9 (<1.2); Partial Thromboplastin Time 25.2 sec (22.0-30.0); Prothrombin Time 9.7 sec (9.0-12.0)
[2021-11-30] MEDS ORDERED: AZITHROMYCIN 500 MG in SODIUM CHLORIDE 0.9% 250 ML IVPB STA (19:15)
[2021-11-30] MEDS ORDERED: PNEUMONIA PROTOCOL UTILIZED 1 EACH MISC PO PRN (19:15)
[2021-11-30] MEDS ORDERED: IPRATROPIUM-ALBUTEROL 3 ML NEB INHALATION PRN (19:15)
[2021-11-30] MEDS: IPRATROPIUM-ALBUTEROL 3 ML NEB INHALATION SCH (21:04)
[2021-11-30] MEDS ORDERED: predniSONE 20 MG TAB PO STA (23:00)
--- NOTE | 2021-11-30 23:18 | P.HPIM ---
History of Present Illness H&P Date: 11/30/21 The patient is an 81-year-old male with a PMH of distant tobacco abuse who presented to the emergency room with complaints of shortness of breath. The patient reports that over the past 3-4 days, he has had a persistent nonproductive cough along with shortness of breath and some wheezing. He denied experiencing fevers, chills, chest pain, nausea, vomiting, diaphoresis. Also denied experiencing abdominal pain, diarrhea, urinary complaints. He reports that his appetite has been somewhat decreased since onset of his symptoms. The patient's SpO2 in the emergency room dropped to 85% upon ambulation albeit was 95% on room air at rest. The patient reports no prior hospitalizations for pneumonias and no history of asthma or COPD diagnosis or hospitalizations. Chest x-ray in the emergency room revealed minimal left lower lobe infiltrate, with EKG showing sinus rhythm at 72 bpm with first-degree AV block and a left bundle branch block. Laboratory evaluation was remarkable for sodium of 130, chloride 97, and troponin 0.014 with proBNP 1190. Review of systems: Pertinent positives and negatives as discussed in HPI, a complete review of systems was performed and all other systems are negative. Physical examination: General: non toxic, no distress, appears at stated age, normal weight Derm: no unusual rashes/lesions no unusual ecchymoses, warm, dry Head: atraumatic, normocephalic, symmetric Eyes: EOMI, no lid lag, anicteric sclera, pupils equal round reactive to light ENT: Nose and ears atraumatic, no thrush, no pharyngeal erythema Neck: No thyromegaly, no cervical lymphadenopathy, trachea midline, supple Mouth: no lip lesion, mucus membranes moist Cardiovascular: S1S2 reg, no murmur, positive posterior tibial pulse bilateral, no edema, capillary refill less than 2 seconds Lungs: Scattered coarse breath sounds with expiratory wheezing appreciated, no accessory muscle use Abdominal: soft, nontender to palpation, no guarding, no appreciable organo megaly, normal bowel sounds Ext: no gross muscle atrophy, muscle strength 5 out of 5 in all 4 extremities grossly, no contractures, Neuro: CN II-XI grossly intact, light touch intact all 4 extremities, finger to nose within normal limits, Psych: Alert, oriented, appropriate affect Assessment/plan Community acquired pneumonia with bronchitis -Continue ceftriaxone and azithromycin -Supplemental oxygen -Continue prednisone 40 mg daily with DuGaviota's Hyponatremia, likely secondary to poor oral intake -Gentle IV hydration and monitor BMP DVT prophylaxis -Heparin subcu The patient is admitted with an anticipated greater than 2 midnight stay for evaluation of pneumonia CODE STATUS: Full Code Discussed with: Patient Anticipated discharge date: 2-[address]: Home Past Medical History Past Medical History: Osteoarthritis (OA) Additional Past Medical History / Comment(s): Arthritis especially in bilateral hands, bone spurs in neck History of Any Multi-Drug Resistant Organisms: None Reported Past Surgical History: Heart Catheterization, Hernia Repair Additional Past Surgical History / Comment(s): Colonoscopy with benign polypectomy, R inguinal repair, bilateral cataract removal/lens implants. Past Anesthesia/Blood Transfusion Reactions: No Reported Reaction Past Psychological History: No Psychological Hx Reported Additional Psychological History / Comment(s): Pt resides with his spouse. He is independent. Smoking Status: Former smoker Past Alcohol Use History: Daily Additional Past Alcohol Use History / Comment(s): Pt started smoking in 1961 and quit in 1991. Pt states he drinks 4 beers a day and last drank 04/16/19 Past Drug Use History: None Reported - Past Family History Father Family Medical History: No Reported History Additional Family Medical History / Comment(s): Father was healthy and at the age of 86yrs. Mother Additional Family Medical History / Comment(s): Mother was healthy. She at the age of 88yrs. Medications and Allergies Home Medications Medication Instructions Recorded Confirmed Type Aspirin EC [Ecotrin Low Dose] 81 mg PO DAILY 04/17/19 11/30/21 History Atorvastatin [Lipitor] 40 mg PO DAILY #30 tab 04/19/19 11/30/21 Rx Metoprolol Succinate (ER) [Toprol 25 mg PO DAILY #30 tab 04/19/19 11/30/21 Rx Xl] Nitroglycerin Sl Tabs [Nitrostat] 0.4 mg SUBLINGUAL Q5M PRN #30 tab 04/19/19 11/30/21 Rx Allergies Allergy/AdvReac Type Severity Reaction Status Date / Time No Known Allergies Allergy Verified 11/30/21 18:07 Physical Exam Vitals: Vital Signs Temp Pulse Pulse Resp BP BP Pulse Ox 11/30/21 21:44 98.6 F 83 19 135/60 96 11/30/21 20:00 99.1 F 67 18 153/69 95 11/30/21 17:00 20 11/30/21 15:10 79 18 127/69 97 Intake and Output 11/30/21 11/30/21 12/01/21 14:59 22:59 06:59 Other: Weight 70.307 kg Results CBC & Chem 7: 11/30/21 17:19 11/30/21 17:19 Labs: Abnormal Lab Results - Last 24 Hours (Table) 11/30/21 11/30/21 Range/Units 17:19 17:19 RBC 4.28 L (4.30-5.90) m/uL Sodium 130 L (137-145) mmol/L Chloride 97 L (98-107) mmol/L Total Bilirubin 2.3 H (0.2-1.3) mg/dL Thrombosis Risk Factor Assmnt - Choose All That Apply Any of the Below Risk Factors Present?: No Other Risk Factors: No Each Risk Factor Represents 3 Points: Age 75 years or older Other congenital or acquired thrombophilia - If yes, enter type in comment: No Thrombosis Risk Factor Assessment Total Risk Factor Score: 3 Thrombosis Risk Factor Assessment Level: Very Low Risk
[2021-12-01] MEDS: HEPARIN SODIUM,PORCINE/PF 5,000 UNIT/0.5 ML SYRINGE SQ SCH ×4 (00:17→23:50)
[2021-12-01] MEDS: SODIUM CHLORIDE 0.9% 1,000 ML IV SCH ×2 (04:13→09:46)
--- NOTE | 2021-12-01 06:30 | XR ---
EXAMINATION TYPE: XR chest 2V DATE OF EXAM: 12/01/2021 COMPARISON: Chest x-ray from yesterday and older studies April 17, 2019 HISTORY: Pneumonia. TECHNIQUE: Frontal and lateral views of the chest are obtained. FINDINGS: Persistent left greater than right bibasilar opacities greatest posterior aspect left lowe r lobe but involvement in the lingula is present. The cardiac silhouette size is stable and within n ormal limits. The osseous structures are intact. IMPRESSION: Persistent left lower lung acute infiltrate and/or atelectasis. Possible additional medi al right basilar acute infiltrate and/or atelectasis. No significant change from one day earlier.
[2021-12-01] MEDS: IPRATROPIUM-ALBUTEROL 3 ML NEB INHALATION SCH ×4 (07:45→21:06)
[2021-12-01] MEDS: ASPIRIN 81 MG PO SCH (08:02)
[2021-12-01] MEDS: predniSONE 20 MG TAB PO SCH (08:02)
[2021-12-01] MEDS: ATORVASTATIN 40 MG TAB PO SCH (08:03)
[2021-12-01] MEDS: METOPROLOL SUCCINATE (ER) 25 MG TAB.ER.24H PO SCH (08:03)
--- NOTE | 2021-12-01 10:08 | P.PN ---
Subjective Progress Note Date: 12/01/21 Hospital course: Patient is a very pleasant 81-year-old male with a past medical history of hypertension, hyperlipidemia, and osteoarthritis. He presented to the emergency department on 11/30/21 with a chief complaint of cough and shortness of breath. Patient reports these symptoms began approximately 4 days prior and progressively worsened. Patient initially went to an urgent care center where he was found to have an SpO2 of 95% at room air which dropped to 85% with ambulation so he was sent to the emergency department for further evaluation. In the emergency department patient underwent full evaluation. EKG was completed revealing normal sinus rhythm at 72 bpm with a left bundle branch block, left bundle branch block was present in previous EKG in 2019. Chest x- ray which revealed persistent left lower lung acute infiltrate along with additional medial right basilar acute infiltrate. Labs drawn revealing hyponatremia. Covid PCR, influenza A and influenza B all negative. ProBNP 1190. Troponin 0.014. Patient started on antibiotics Rocephin and azithromycin and admitted under our services. Physical exam: Patient seen and fully evaluated at the bedside this morning. Patient reports feeling "awful.". Patient reports dry cough and inability to bring up any congestion accompanied by shortness of breath. Patient denies having any chest pain or palpitations and denies any nausea or vomiting. Patient does report having a decreased appetite and remains afebrile. Vital signs stable. Hyponatremia resolved. We will add on as needed Robitussin-AC for cough along with scheduled Mucinex. Vital signs reviewed and stable. General: Nontoxic, no distress and appears stated age. Derm: Skin warm and dry, normal coloration for ethnicity. Head: Atraumatic, normocephalic and symmetric. Eyes: EOMs intact, no lid lag, and anicteric sclera Mouth: no lip lesions, mucus membranes moist Cardiovascular: regular rate and rhythm with normal S1S2, no murmur, positive posterior tibial pulses bilaterally, and cap refill < 2 seconds. Lungs: Respirations even, regular, and unlabored on room air. Lungs CTA bilaterally, no rhonchi, no rales, no wheezing, and no accessory muscle usage. Abdominal: soft, nontender to palpation, no guarding, no appreciable org anomegaly Ext: ROM intact. No gross muscle atrophy, no edema, no contractures Neuro: Speech clear, face symmetrical and CN II-XII grossly intact with no noted focal neuro deficits Psych: Alert and oriented to person, place, time, and situation. Appropriate and pleasant affect. Assessment and Plan of Care: Community acquired pneumonia with bronchitis -Oxygenation to be administered and titrated as needed to maintain SPO2 equal to or greater than 92% -Telemetry monitoring. -Continuous Pulse-oximetry -Duonebs as needed for SOB and/or wheezing -Incentive Spirometry -Steroids: Prednisone 40 mg daily -Antibiotics: Azithromycin and Rocephin -Sputum culture Hyponatremia, resolved Hypertension Monitor vital signs and continue daily medication regimen with metoprolol. Hyperlipidemia Continue daily medication regimen with atorvastatin. CODE STATUS: Full code DVT prophylaxis: Heparin Discussed with: Patient and RN Anticipated discharge date: Clinical course to determine Anticipated discharge place: Home A total of 38 minutes was spent on the care of this complex patient more than 50% of the time was spent in counseling and care coordination. Objective - Vital Signs Vital signs: Vital Signs Temp 98.2 F 12/01/21 07:22 Pulse 90 12/01/21 07:56 Resp 19 12/01/21 07:22 BP 148/73 12/01/21 07:22 Pulse Ox 96 12/01/21 07:22 Intake & Output 11/30/21 12/01/21 12/01/21 18:59 06:59 18:59 Weight 70.307 kg 70.307 kg Other: # Voids 1 - Labs CBC & Chem 7: 11/30/21 17:19 12/01/21 07:29 Labs: Abnormal Lab Results - Last 24 Hours (Table) 11/30/21 11/30/21 Range/Units 17:19 17:19 RBC 4.28 L (4.30-5.90) m/uL Sodium 130 L (137-145) mmol/L Chloride 97 L (98-107) mmol/L Total Bilirubin 2.3 H (0.2-1.3) mg/dL
[2021-12-01 12:07] LABS: African American GFR (CKD) 83.6 (60.0-200.0); Anion Gap 17.6 mmol/L (10.00-18.00); BUN/Creat Ratio 15.72 Ratio (12.00-20.00); Blood Urea Nitrogen 15.2 mg/dL (9.0-27.0); Calcium 8.7 mg/dL (8.7-10.3); Carbon Dioxide 21.6 mmol/L (20.0-27.5); Non-African American GFR(CKD) 72.2 (60.0-200.0); Potassium 4.8 mmol/L (3.5-5.5)
[2021-12-01] MEDS ORDERED: guaiFENesin-Coden 100-10MG/5ML 10 ML CUP PO PRN (16:36)
[2021-12-01] MEDS ORDERED: AZITHROMYCIN 500 MG TAB PO SCH (21:00)
[2021-12-02] MEDS: HEPARIN SODIUM,PORCINE/PF 5,000 UNIT/0.5 ML SYRINGE SQ SCH (07:05)
[2021-12-02] MEDS: METOPROLOL SUCCINATE (ER) 25 MG TAB.ER.24H PO SCH (07:05)
[2021-12-02] MEDS: ATORVASTATIN 40 MG TAB PO SCH (07:05)
[2021-12-02] MEDS: ASPIRIN 81 MG PO SCH (07:05)
[2021-12-02] MEDS: predniSONE 20 MG TAB PO SCH (07:05)
[2021-12-02 08:10] VITALS: BP 109/55; RESP 19; TEMP 97.8
[2021-12-02] MEDS: IPRATROPIUM-ALBUTEROL 3 ML NEB INHALATION SCH ×2 (08:20→11:24)
[2021-12-02 08:32] VITALS: PULSE 80
--- NOTE | 2021-12-02 10:14 | P.PN ---
Subjective Progress Note Date: 12/02/21 Hospital course: Patient is a very pleasant 81-year-old male with a past medical history of hypertension, hyperlipidemia, and osteoarthritis. He presented to the emergency department on 11/30/21 with a chief complaint of cough and shortness of breath. Patient reports these symptoms began approximately 4 days prior and progressively worsened. Patient initially went to an urgent care center where he was found to have an SpO2 of 95% at room air which dropped to 85% with ambulation so he was sent to the emergency department for further evaluation. In the emergency department patient underwent full evaluation. EKG was completed revealing normal sinus rhythm at 72 bpm with a left bundle branch block, left bundle branch block was present in previous EKG in 2019. Chest x- ray which revealed persistent left lower lung acute infiltrate along with additional medial right basilar acute infiltrate. Labs drawn revealing hyponatremia. Covid PCR, influenza A and influenza B all negative. ProBNP 1190. Troponin 0.014. Patient started on antibiotics Rocephin and azithromycin and admitted under our services. Physical exam: Patient seen and fully evaluated at the bedside this morning. Patient reports feeling "awful.". Patient reports dry cough and inability to bring up any congestion accompanied by shortness of breath. Patient denies having any chest pain or palpitations and denies any nausea or vomiting. Patient does report having a decreased appetite and remains afebrile. Vital signs stable. Hyponatremia resolved. We will add on as needed Robitussin-AC for cough along with scheduled Mucinex. Vital signs reviewed and stable. General: Nontoxic, no distress and appears stated age. Derm: Skin warm and dry, normal coloration for ethnicity. Head: Atraumatic, normocephalic and symmetric. Eyes: EOMs intact, no lid lag, and anicteric sclera Mouth: no lip lesions, mucus membranes moist Cardiovascular: regular rate and rhythm with normal S1S2, no murmur, positive posterior tibial pulses bilaterally, and cap refill < 2 seconds. Lungs: Respirations even, regular, and unlabored on room air. Lungs CTA bilaterally, no rhonchi, no rales, no wheezing, and no accessory muscle usage. Abdominal: soft, nontender to palpation, no guarding, no appreciable org anomegaly Ext: ROM intact. No gross muscle atrophy, no edema, no contractures Neuro: Speech clear, face symmetrical and CN II-XII grossly intact with no noted focal neuro deficits Psych: Alert and oriented to person, place, time, and situation. Appropriate and pleasant affect. Assessment and Plan of Care: Community acquired pneumonia with bronchitis -Oxygenation to be administered and titrated as needed to maintain SPO2 equal to or greater than 92% -Telemetry monitoring. -Continuous Pulse-oximetry -Duonebs as needed for SOB and/or wheezing -Incentive Spirometry -Steroids: Prednisone 40 mg daily -Antibiotics: Azithromycin and Rocephin -Sputum culture Hyponatremia, resolved Hypertension Monitor vital signs and continue daily medication regimen with metoprolol. Hyperlipidemia Continue daily medication regimen with atorvastatin. CODE STATUS: Full code DVT prophylaxis: Heparin Discussed with: Patient and RN Anticipated discharge date: Clinical course to determine Anticipated discharge place: Home A total of 38 minutes was spent on the care of this complex patient more than 50% of the time was spent in counseling and care coordination. Objective - Vital Signs Vital signs: Vital Signs Temp 97.8 F 12/02/21 08:00 Pulse 80 12/02/21 08:31 Resp 19 12/02/21 08:00 BP 109/55 12/02/21 08:00 Pulse Ox 96 12/02/21 08:00 Intake & Output 12/01/21 12/02/21 12/02/21 18:59 06:59 18:59 Intake Total 1200 Balance 1200 Intake: Intake, IV Titration 900 Amount Sodium Chloride 0.9% 1, 900 000 ml @ 75 mls/hr IV . [id number] [facility] Rx#:[id number] Oral 300 Other: Voiding Method Toilet # Voids 1 1 # Bowel Movements 0 - Labs CBC & Chem 7: 11/30/21 17:19 12/01/21 07:29 Labs: Abnormal Lab Results - Last 24 Hours (Table) 12/01/21 Range/Units 07:29 Glucose 130 H (70-110) mg/dL Microbiology - Last 24 Hours (Table) 11/30/21 19:49 Blood Culture - Preliminary Blood No Growth after 24 hours 11/30/21 19:30 Blood Culture - Preliminary Blood No Growth after 24 hours
[2021-12-02] MEDS: SODIUM CHLORIDE 0.9% 1,000 ML IV SCH (10:38)
--- NOTE | 2021-12-02 11:41 | P.DS ---
Providers Date of admission: 11/30/21 19:15 Expected date of discharge: 12/02/21 Attending physician: Momo Escobar MD Primary care physician: [facility] Hospital Course: Discharge Diagnosis: Community acquired pneumonia with bronchitis, patient discharged home on 5 day course of prednisone and doxycycline. Hyponatremia, resolved Hypertension, continue daily medication regimen with metoprolol Hyperlipidemia, continue daily medication regimen with atorvastatin. Hospital Course: Patient is a very pleasant 81-year-old male with a past medical history of hypertension, hyperlipidemia, and osteoarthritis. He presented to the emergency department on 11/30/21 with a chief complaint of cough and shortness of breath. Patient reports these symptoms began approximately 4 days prior and progressively worsened. Patient initially went to an urgent care center where he was found to have an SpO2 of 95% at room air which dropped to 85% with ambulation so he was sent to the emergency department for further evaluation. In the emergency department patient underwent full evaluation. EKG was completed revealing normal sinus rhythm at 72 bpm with a left bundle branch block, left bundle branch block was present in previous EKG in 2019. Chest x- ray which revealed persistent left lower lung acute infiltrate along with additional medial right basilar acute infiltrate. Labs drawn revealing hyponatremia. Covid PCR, influenza A and influenza B all negative. ProBNP 1190. Troponin 0.014. Patient started on antibiotics Rocephin and azithromycin and admitted under our services. Patient underwent three-day hospitalization and received steroids and antibiotics with azithromycin and Rocephin. Patient reports resolution of previously reported shortness of breath and significant improvement in his cough. An ambulatory pulse ox was completed and patient maintained SpO2 of 95% and above at rest and with ambulation. Patient is medically stable at this time in stable for discharge home. Patient being discharged home on an additional 5 day course of prednisone and doxycycline. Patient otherwise to continue daily medication management consisting of aspirin, atorvastatin, and metoprolol. Patient to follow-up with [facility] in 1-2 days. Physical exam: Vital signs reviewed and stable. General: Nontoxic, no distress and appears stated age. Thin build. Derm: Skin warm and dry, normal coloration for ethnicity. Head: Atraumatic, normocephalic and symmetric. Eyes: EOMs intact, no lid lag, and anicteric sclera Mouth: no lip lesions, mucus membranes moist Cardiovascular: regular rate and rhythm with normal S1S2, no murmur, positive posterior tibial pulses bilaterally, and cap refill < 2 seconds. Lungs: Respirations even, regular, and unlabored on room air. Lungs CTA bilaterally, no rhonchi, no rales, no wheezing, and no accessory muscle usage. Abdominal: soft, nontender to palpation, no guarding, no appreciable organomegaly Ext: ROM intact. No gross muscle atrophy, no edema, no contractures Neuro: Speech clear, face symmetrical and CN II-XII grossly intact with no noted focal neuro deficits Psych: Alert and oriented to person, place, time, and situation. Appropriate and pleasant affect. A total of 37 minutes of time were spent preparing this complex discharge summ rowdy. Pt was discharged on 12/02/21 at 11:38 AM Patient Condition at Discharge: Stable Plan - Discharge Summary New Discharge Prescriptions: New predniSONE [Deltasone] 40 mg PO DAILY 5 Days #10 tab Doxycycline [Vibramycin] 100 mg PO BID 5 Days #10 capsule Continue Aspirin EC [Ecotrin Low Dose] 81 mg PO DAILY Atorvastatin [Lipitor] 40 mg PO DAILY #30 tab Nitroglycerin Sl Tabs [Nitrostat] 0.4 mg SUBLINGUAL Q5M PRN #30 tab PRN Reason: Chest Pain Metoprolol Succinate (ER) [Toprol XL] 25 mg PO DAILY #30 tab Discharge Medication List Aspirin EC [Ecotrin Low Dose] 81 mg PO DAILY 04/17/19 [History] Atorvastatin [Lipitor] 40 mg PO DAILY #30 tab 04/19/19 [Rx] Metoprolol Succinate (ER) [Toprol XL] 25 mg PO DAILY #30 tab 04/19/19 [Rx] Nitroglycerin Sl Tabs [Nitrostat] 0.4 mg SUBLINGUAL Q5M PRN #30 tab 04/19/19 [Rx] Doxycycline [Vibramycin] 100 mg PO BID 5 Days #10 capsule 12/02/21 [Rx] predniSONE [Deltasone] 40 mg PO DAILY 5 Days #10 tab 12/02/21 [Rx] Follow up Appointment(s)/Referral(s): [facility],Clinic [Primary Care Provider] - 1-2 days Activity/Diet/Wound Care/Special Instructions: Activity: As tolerated. Take breaks as needed. Diet: Heart healthy and carb consistent diet. Avoid salts, or foods with hidden salts such as canned or boxed foods and frozen dinners. Extra salt makes your heart work harder and traps the fluid in your body for longer. Special Instructions: Take all of your medications as directed and remember to keep all of your doctor's appointments and follow-up as needed. Thank you for allowing us to participate in your care, it was truly a pleasure having you for our patient!!! Discharge Disposition: HOME SELF-CARE
== END 2021-12-02 14:02 | disposition home or self-care (01) ==
LOC: EC 14:14 → INTOOBSV 19:15 → 4SSUR 19:15 → UNDODISIN 12-02 14:02
PROVIDERS: ADMIT Internal Medicine; ATTEND Internal Medicine
DX: J18.9 Pneumonia, unspecified organism (principal); E87.1 Hypo-osmolality and hyponatremia; R09.02 Hypoxemia; J40 Bronchitis, not specified as acute or chronic; I44.0 Atrioventricular block, first degree; E78.5 Hyperlipidemia, unspecified; I10 Essential (primary) hypertension; I44.7 Left bundle-branch block, unspecified; Z20.822 Contact with and (suspected) exposure to COVID-19; M19.042 Primary osteoarthritis, left hand; M19.041 Primary osteoarthritis, right hand; Y95 Nosocomial condition; Z79.82 Long term (current) use of aspirin; Z79.899 Other long term (current) drug therapy; Z87.891 Personal history of nicotine dependence; Z86.010 Personal history of colon polyps; Z87.19 Personal history of other diseases of the digestive system; Z71.9 Counseling, unspecified
CPT/HCPCS: 96361 ×2; 96372 ×2; 96368; 96365; 99285; 36415; 94640 ×4; 93005; 85379; 83880; 80053; 80048; 83605; 84484; 85025; 85610; 85730; 87040; 87502; 87635; 71046 ×2; G0378 ×3; J0456; J0696 ×2; J7512 ×2; J1644 ×2; 96366

== ENCOUNTER → 2023-10-04 | Outpatient (CLI) | payer MEDICARE ==
[2023-10-04 16:01] LABS: Blood Urea Nitrogen 12.3 mg/dL (9.0-27.0); Carbon Dioxide 24.8 mmol/L (21.6-31.8); Chloride 103 mmol/L (96-109); Potassium 4.3 mmol/L (3.5-5.5); Sodium 140 mmol/L (135-145)
[2023-10-04 16:13] LABS: Basophils # (A) 0.02 X 10*3/uL (0.00-0.10); Basophils % (A) 0.3 %; Eosinophils # (A) 0.26 X 10*3/uL (0.04-0.35); Eosinophils % (A) 4.3 %; HCT 40.5 % (39.6-50.0); HGB 12.9 g/dL (13.0-17.0); Lymphocytes # (A) 1.68 X 10*3/uL (0.90-5.00); Lymphocytes % (A) 28.1 %; MCHC 31.9 g/dL (32.0-37.0); MCV 100.5 FL (80.0-97.0); Monocytes # (A) 0.52 X 10*3/uL (0.20-1.00); Monocytes % (A) 8.7 %; NRBC Per 100 WBC 0 X 10*3/uL (0.00-0.01); Neutrophils # (A) 3.47 X 10*3/uL (1.80-7.70); Neutrophils % (A) 58.1 %; Platelet Count 208 X 10*3/uL (140-440); RBC 4.03 X 10*6/uL (4.40-5.60); RDW 14.1 % (11.5-14.5); WBC 5.98 X 10*3/uL (4.50-10.00)
== END | disposition home or self-care (01) ==
LOC: LABPAT 10:01
PROVIDERS: ATTEND Internal Medicine Interventional Cardiology
DX: Z01.818 Encounter for other preprocedural examination (principal); R06.02 Shortness of breath
CPT/HCPCS: 80051; 82565; 84520; 85025

== ENCOUNTER 2023-10-11 10:17 | Day surgery (SDC) | payer MEDICARE ==
[~2023-10-11 10:17] MED LIST: ALPRAZolam 0.25 MG TAB PO PRN; ALPRAZolam 0.5 MG TAB PO PRN; NITROGLYCERIN SL TABS 0.4 MG TAB SUBLINGUAL PRN
[2023-10-11] MEDS: SODIUM CHLORIDE 0.9% 1,000 ML IV ONE (11:24)
[2023-10-11] MEDS ORDERED: fentaNYL (PF) 50 MCG/ML 2 ML AMP ONE (12:54)
[2023-10-11] MEDS: ASPIRIN 325 MG TAB PO STA ×2 (14:44→15:55)
[2023-10-11] MEDS: SODIUM CHLORIDE 0.9% 1,000 ML in EMPTY BAG 1 BAG IV SCH (14:44)
[2023-10-12] MEDS: METOPROLOL SUCCINATE (ER) 25 MG TAB.ER.24H PO SCH (05:58)
[2023-10-12] MEDS: ATORVASTATIN 40 MG TAB PO SCH (05:58)
[2023-10-12] MEDS: ASPIRIN 325 MG TAB PO STA (05:59)
[2023-10-12] MEDS ORDERED: HEPARIN SODIUM,PORCINE (1 ML) 2,500 UNIT in SODIUM CHLORIDE 0.9% 250 ML IRRIGATION PRN (07:00)
[2023-10-12] MEDS ORDERED: HEPARIN SODIUM,PORCINE 10,000 UNIT in SODIUM CHLORIDE 0.9% 1,000 ML IRRIGATION PRN (07:00)
[2023-10-12] MEDS: SODIUM CHLORIDE 0.9% 1,000 ML IV ONE (07:23)
[2023-10-12] MEDS ORDERED: HEPARIN SODIUM 1,000 UN/ML (10ML VL) ONE (07:34)
[2023-10-12] MEDS ORDERED: fentaNYL (PF) 50 MCG/ML 2 ML AMP ONE (07:49)
[2023-10-12] MEDS: MIDAZOLAM 2 MG/2 ML VIAL IVP ONE (07:50)
[2023-10-12] MEDS: LIDOCAINE 1% INJ 10MG/ML (20 ML MDV) SQ ONE (07:50)
[2023-10-12] MEDS: fentaNYL (PF) 50 MCG/ML 2 ML AMP IVP ONE (07:50)
[2023-10-12] MEDS: VERAPAMIL SYRINGE (5 MG/10 ML) INTRAARTER ONE (07:52)
[2023-10-12] MEDS: HEPARIN SODIUM 1,000 UN/ML (10ML VL) IV ONE (07:54)
[2023-10-12] MEDS ORDERED: TICAGRELOR 90 MG TAB ONE (08:07)
[2023-10-12] MEDS: TICAGRELOR 90 MG TAB PO ONE (08:13)
[2023-10-12] MEDS: NITROGLYCERIN 1000MCG/10ML SYRINGE INTRACORON ONE (08:27)
[2023-10-12] MEDS: IOPAMIDOL-370 100ML BTL INJ ONE (08:30)
[2023-10-12] MEDS ORDERED: NITROGLYCERIN SL TABS 0.4 MG TAB SUBLINGUAL PRN (08:38)
[2023-10-12] MEDS ORDERED: ZOLPIDEM 5 MG TAB PO PRN (08:38)
[2023-10-12] MEDS ORDERED: RX INFO: IV CONTRAST WAS GIVEN 1 EACH MISC MISCELLANE PRN (08:38)
[2023-10-12] MEDS ORDERED: ATROPINE SULFATE 0.1 MG/ML 10ML SYRINGE IV PRN (08:38)
[2023-10-12] MEDS ORDERED: MAG HYDROX/AL HYDROX/SIMETH 30 ML CUP PO PRN (08:38)
--- NOTE | 2023-10-12 08:42 | P.PCN ---
Date of Procedure: 10/12/23 Operative Findings: CARDIAC CATHETERIZATION AND PERCUTANEOUS CORONARY INTERVENTION PERFORMING PHYSICIAN: Marino Perea MD, [facility] PROCEDURE PERFORMED: 1. Selective right and left coronary angiogram 2. Adjunctive use of intravascular imaging and Doppler wire 3. Successful stenting of mid LAD using 3.5 x 28 mm Xience SANJU with an excellent angiographic results 4. Ultrasound-guided access of the right radial artery INDICATION: Chest discomfort and shortness of breath concerning for angina COMPLICATION: None APPROACH: Right radial artery LEVEL OF SEDATION: Moderate with the sedation time off 42 minutes PROCEDURE DESCRIPTION: After obtaining informed consent the patient was brought to the cardiac Decorator Hand. The right radial artery was cannulated using micropuncture technique under ultrasound guidance micropuncture wire passed easily then I placed a 6 Chinese sheath in the right radial artery and gave the patient 3000's of heparin IV and 2 mg of verapamil intra-arterial. Selective right and left coronary angiograms were performed using JR4 and JL 3.5 catheter. After that I did intervene on the LAD SELECTIVE CORONARY ANGIOGRAM: The right coronary artery: Medium caliber vessel nondominant vessel Left main: Is angiographically normal The left circumflex: Large-caliber vessel and a dominant vessel. Has mild disease only. Gives rise into the first and second obtuse marginal branches and distally bifurcates into PDA and PLV branches The left anterior descending artery: Large-caliber vessel and calcified vessel with intermediate lesion in the midportion appeared to be in the range of 60% documented to be flow-limiting by Doppler wire PCI OF THE LAD: Initially we decided to do Doppler wire measurement of the LAD. After zeroing the Doppler wire and equalized in between the Doppler wire and guiding catheter which was JL 3 5 guiding catheter the left main was engaged and the LAD was wired. Subsequently we did an IFR and that came in to be at 0.88. After that I give the patient additional heparin after ACT was monitored. Then I did intravascular ultrasound and that showed a diameter around 3.5 mm and calcified LAD. Balloon angioplasty was performed using 3.5 mm shockwave balloon before I deployed a 3.5 x 28 mm stent and subsequently was stented using 3.5 mm nonco mpliant balloon with final angiogram showing excellent angiographic results with ASHISH-3 flow and the procedure was completed with no complication CONCLUSION: Severe disease involving the mid LAD. I did perform successful stenting of the LAD as described above POSTPROCEDURE MANAGEMENT: 1. Dual antiplatelet therapy using aspirin and Brilinta for at least 6 month 2. Aggressive cholesterol control 3. Follow-up with the patient
[2023-10-12] MEDS: SODIUM CHLORIDE 0.9% 1,000 ML in EMPTY BAG 1 BAG IV SCH (08:59)
[2023-10-12] MEDS ORDERED: TICAGRELOR 90 MG TAB PO SCH (09:00)
[2023-10-12] MEDS ORDERED: ASPIRIN 81 MG PO SCH (09:00)
[2023-10-12] MEDS ORDERED: ASPIRIN 325 MG TAB PO SCH (09:00)
[2023-10-12 16:12] VITALS: BMI 23.1
[2023-10-12] MEDS: TICAGRELOR 90 MG TAB PO SCH (20:31)
[2023-10-13 07:26] VITALS: BP 173/71; PULSE 60; RESP 18; TEMP 97.7
[2023-10-13] MEDS: ASPIRIN 81 MG PO SCH (07:56)
--- NOTE | 2023-10-13 09:28 | P.DS ---
Providers Attending physician: Marino Perea Consults: 10/12/23 08:38 Consult Physician Routine Consulting Provider: [facility] Consult Reason/Comments: Post Interventional patient Do you want consulting provider notified?: Already Contacted Primary care physician: [facility] Course: The patient is an 83-year-old gentleman who underwent yesterday heart catheterization and PCI of the left anterior descending artery He was seen this morning. He is asymptomatic and hemodynamically stable. The patient is going to be discharged home on dual antiplatelet therapy along with a statin. He was informed and educated about the importance of taking dual antiplatelet therapy and the consequences if he interrupted taking them including a heart attack and . He is in full understanding. The patient will be seen in the office in a week Plan - Discharge Summary Discharge Rx Participant: No New Discharge Prescriptions: New Aspirin 81 mg PO DAILY #90 tab Ticagrelor [Brilinta] 90 mg PO BID #180 tab Continue Atorvastatin [Lipitor] 40 mg PO DAILY #30 tab Nitroglycerin Sl Tabs [Nitrostat] 0.4 mg SUBLINGUAL Q5M PRN #30 tab PRN Reason: Chest Pain Metoprolol Succinate (ER) [Toprol XL] 25 mg PO DAILY #30 tab Unk Vitamin B12 1 tab PO DAILY Unk Folic Acid 1 tab PO DAILY Discontinued Aspirin 325 mg PO ONCE Discharge Medication List Atorvastatin [Lipitor] 40 mg PO DAILY #30 tab 04/19/19 [Rx] Metoprolol Succinate (ER) [Toprol XL] 25 mg PO DAILY #30 tab 04/19/19 [Rx] Nitroglycerin Sl Tabs [Nitrostat] 0.4 mg SUBLINGUAL Q5M PRN #30 tab 04/19/19 [Rx] Unk Folic Acid 1 tab PO DAILY 10/08/23 [History] Unk Vitamin B12 1 tab PO DAILY 10/08/23 [History] Aspirin 81 mg PO DAILY #90 tab 10/13/23 [Rx] Ticagrelor [Brilinta] 90 mg PO BID #180 tab 10/13/23 [Rx] Follow up Appointment(s)/Referral(s): Marino Perea MD [STAFF PHYSICIAN] - 1 Week (Office will call appointment date and time) Patient Instructions/Handouts: Moderate Sedation (DC), Left Heart Catheterization (DC)
== END 2023-10-13 10:22 | disposition home or self-care (01) ==
LOC: CATHCVL 10:17 → 6NMEDSUR 13:47 → CATHCVL 10-13 10:22
PROVIDERS: ATTEND Internal Medicine Interventional Cardiology
DX: I25.10 Atherosclerotic heart disease of native coronary artery without angina pectoris (principal); Z95.5 Presence of coronary angioplasty implant and graft; I10 Essential (primary) hypertension; E78.5 Hyperlipidemia, unspecified
CPT/HCPCS: 92978; 93454; 93799; 92972; 76937; C9600; J2250; J2001; J3010; J1644; Q9967; J2305

== ENCOUNTER → 2024-01-04 | Outpatient (CLI) | payer MEDICARE ==
[2024-01-04 15:49] LABS: HGB 9.1 g/dL (13.0-17.0); MCH 26.3 pg (27.0-32.0); MCHC 28.4 g/dL (32.0-37.0); MCV 92.5 FL (80.0-97.0); Mean Platelet Volume 10.1 FL (9.5-12.2); NRBC Per 100 WBC 0 X 10*3/uL (0.00-0.01); Platelet Count 307 X 10*3/uL (140-440); RBC 3.46 X 10*6/uL (4.40-5.60); RDW 17.8 % (11.5-14.5); WBC 5.58 X 10*3/uL (4.50-10.00)
[2024-01-04 18:17] LABS: Blood Urea Nitrogen 15.4 mg/dL (9.0-27.0); Carbon Dioxide 23.3 mmol/L (21.6-31.8); Chloride 110 mmol/L (96-109); Potassium 4.4 mmol/L (3.5-5.5); Sodium 147 mmol/L (135-145)
== END | disposition home or self-care (01) ==
LOC: LABPAT 10:13
PROVIDERS: ATTEND Internal Medicine Interventional Cardiology
DX: Z01.812 Encounter for preprocedural laboratory examination (principal); R06.02 Shortness of breath
CPT/HCPCS: 80051; 82565; 84520; 85027

== ENCOUNTER 2024-01-08 05:41 | Day surgery (SDC) | payer MEDICARE ==
[2024-01-08] MEDS ORDERED: ALPRAZolam 0.5 MG TAB PO PRN (05:58)
[2024-01-08] MEDS ORDERED: ALPRAZolam 0.25 MG TAB PO PRN (05:58)
[2024-01-08] MEDS ORDERED: NITROGLYCERIN SL TABS 0.4 MG TAB SUBLINGUAL PRN (05:58)
[2024-01-08] MEDS: SODIUM CHLORIDE 0.9% 1,000 ML in EMPTY BAG 1 BAG IV SCH (06:10)
[2024-01-08] MEDS: IV FLUID CONTINUATION 1,000 ML IV ONE (06:15)
[2024-01-08] MEDS: SODIUM CHLORIDE 0.9% 1,000 ML IV ONE (06:15)
[2024-01-08 06:35] VITALS: RESP 16; TEMP 97.7
[2024-01-08] MEDS: ASPIRIN 325 MG TAB PO STA (06:36)
[2024-01-08] MEDS ORDERED: LIDOCAINE 1% INJ 10MG/ML (20 ML MDV) ONE (07:19)
[2024-01-08] MEDS ORDERED: VERAPAMIL 2.5 MG/ML 2 ML AMP ONE (07:20)
[2024-01-08] MEDS ORDERED: HEPARIN SODIUM 1,000 UN/ML (10ML VL) ONE (07:28)
[2024-01-08] MEDS: MIDAZOLAM 2 MG/2 ML VIAL IVP ONE (07:58)
[2024-01-08] MEDS: LIDOCAINE 1% INJ 10MG/ML (20 ML MDV) SQ ONE (08:00)
[2024-01-08] MEDS: VERAPAMIL SYRINGE (5 MG/10 ML) INTRAARTER ONE (08:02)
[2024-01-08] MEDS: HEPARIN SODIUM 1,000 UN/ML (10ML VL) IV ONE (08:08)
[2024-01-08] MEDS ORDERED: RX INFO: IV CONTRAST WAS GIVEN 1 EACH MISC MISCELLANE PRN (08:35)
[2024-01-08] MEDS: IOPAMIDOL-370 100ML BTL INJ ONE (08:37)
--- NOTE | 2024-01-08 08:39 | P.PCN ---
Date of Procedure: 01/08/24 Operative Findings: CARDIAC CATHETERIZATION PERFORMING PHYSICIAN: Marino Perea MD, [facility] PROCEDURE PERFORMED: 1. Selective right and left coronary angiogram 2. Left heart catheterization 3. Ultrasound-guided access of the right radial artery INDICATION: The patient is a pleasant 83-year-old gentleman with CAD and prior stenting of the LAD who continues to be symptomatic in spite of maximized medical treatment COMPLICATION: None APPROACH: Right radial artery LEVEL OF SEDATION: Moderate with a sedation length of 30 minutes PROCEDURE DESCRIPTION: After obtaining an informed consent, the patient was brought to cardiac laborer dairy farm. Local anesthesia was performed using lidocaine subcutaneously. The right radial artery was cannulated using Seldinger technique, the guidewire passed easily, following that we advanced a 5-[place] sheath dilator assembly, the wire and dilator were removed and sheath was flushed. Following that, 2 mg of verapamil along with 5000 unit heparin were given. Right heart catheterization was performed using 6 [place] Rosebud catheter. Selective right and left coronary angiogram using a 6-[place] African JR4 and JL 3.5 catheters. Following that we did left heart catheterization using 6-Central African pigtail catheter. The procedure was completed there was no complication. SELECTIVE CORONARY ANGIOGRAM: The right coronary artery: Medium caliber vessel nondominant vessel appears to be angiographically normal Left main: Calcified with mild disease only The left circumflex: Large-caliber vessel and a dominant vessel with intermediate disease in the proximal portion documented to be nonflow limiting by Doppler wire The left anterior descending artery: Large-caliber vessel appears to be stented and the stent is patent HEMODYNAMICS: The LVEDP was 14 mmHg Pulmonary capillary wedge pressure was about 12 mmHg PA pressures were as follows systolic 53 and diastolic of 9 and mean of 18 mmHg RV pressures were as follows systolic of 35 and end-diastolic of 7 mmHg Right atrial pressure was 5 mm CONCLUSION: 1. Patent stent in the LAD 2. Intermediate disease involving the proximal LCx documented to be nonflow limiting by Doppler wire 3. Right and left-sided filling pressure 4. Normal pulmonary artery pressure POSTPROCEDURE MANAGEMENT: Medical tx
[2024-01-08] MEDS ORDERED: SODIUM CHLORIDE 0.9% 1,000 ML IV SCH (08:45)
[2024-01-08] MEDS ORDERED: ONDANSETRON 4 MG/2 ML VIAL ONE (09:18)
[2024-01-08 12:15] VITALS: BP 121/78; PULSE 69
== END 2024-01-08 12:24 | disposition home or self-care (01) ==
LOC: CATHCVL 05:41
PROVIDERS: ATTEND Internal Medicine Interventional Cardiology
DX: I25.10 Atherosclerotic heart disease of native coronary artery without angina pectoris (principal); I10 Essential (primary) hypertension; E78.5 Hyperlipidemia, unspecified; I27.20 Pulmonary hypertension, unspecified; Z95.5 Presence of coronary angioplasty implant and graft; Z79.02 Long term (current) use of antithrombotics/antiplatelets; Z79.899 Other long term (current) drug therapy; Z79.82 Long term (current) use of aspirin
CPT/HCPCS: 93460; 93799; 76937; 99152; 99153; J2250; J2001; J1644; Q9967

== ENCOUNTER → 2024-02-11 | Outpatient (CLI) | payer MEDICARE ==
[2024-02-11 20:59] LABS: Basophils # (A) 0.02 X 10*3/uL (0.00-0.10); Basophils % (A) 0.4 %; Eosinophils # (A) 0.17 X 10*3/uL (0.04-0.35); Eosinophils % (A) 3.4 %; HGB 10.4 g/dL (13.0-17.0); Lymphocytes # (A) 1.15 X 10*3/uL (0.90-5.00); Lymphocytes % (A) 23.1 %; MCH 25.6 pg (27.0-32.0); MCHC 28.1 g/dL (32.0-37.0); MCV 91.1 FL (80.0-97.0); Mean Platelet Volume 10.8 FL (9.5-12.2); Monocytes # (A) 0.39 X 10*3/uL (0.20-1.00); Monocytes % (A) 7.8 %; NRBC Per 100 WBC 0 X 10*3/uL (0.00-0.01); Neutrophils # (A) 3.22 X 10*3/uL (1.80-7.70); Neutrophils % (A) 64.9 %; Platelet Count 270 X 10*3/uL (140-440); RBC 4.06 X 10*6/uL (4.40-5.60); WBC 4.97 X 10*3/uL (4.50-10.00)
[2024-02-11 21:01] LABS: Immunoglobulin E 58.7 IU/mL (0.00-114.00)
[2024-02-11 22:24] LABS: Alternaria alternata IgE <0.10 kU/L; Aspergillus fumagatus IgE <0.10 kU/L; Birch IgE <0.10 kU/L; Cat Epith & Dander IgE <0.10 kU/L; Cladosporian herbarum IgE <0.10 kU/L; Cockroach IgE <0.10 kU/L; Dermato. farinae IgE <0.10 kU/L; Dog Dander IgE <0.10 kU/L; Elm IgE <0.10 kU/L; Maple (Box Elder) IgE <0.10 kU/L; Oak IgE <0.10 kU/L; Ragweed,Common IgE <0.10 kU/L; Red Top (Bentgrass) IgE <0.10 kU/L
[2024-02-12 12:42] LABS: Alt. alternata IgE Class CLASS 0; Alternaria alternata IgE <0.10 kU/L (<0.10); Asperg. fumagatus IgE <0.10 kU/L (<0.10); Asperg. fumagatus IgE Class CLASS 0; Bermuda Grass IgE <0.10 kU/L (<0.10); Birch(Com.Silvr) IgE <0.10 kU/L (<0.10); Birch(Com.Silvr) IgE Class CLASS 0; Cat Epith & Dander IgE <0.10 kU/L (<0.10); Cat Epith & Dander IgE Class CLASS 0; Clad herbarum IgE <0.10 kU/L (<0.10); Clad herbarum IgE Class CLASS 0; Cockroach IgE <0.10 kU/L (<0.10); Cottonwood IgE <0.10 kU/L (<0.10); Dermato. Pteronyssinus Class CLASS 0; Dermato. Pteronyssinus IgE <0.10 kU/L (<0.10); Dermato. farinae IgE <0.10 kU/L (<0.10); Dermato. farinae IgE Class CLASS 0; Dog Dander IgE <0.10 kU/L (<0.10); Elm IgE <0.10 kU/L (<0.10); IgE (Allergen) 54.5 IU/mL (<114.0); Maple (Box Elder) IgE <0.10 kU/L (<0.10); Maple (Box Elder) IgE Class CLASS 0; Mountain Cedar IgE <0.10 kU/L (<0.10); Mountain Cedar IgE Class CLASS 0; Mouse Urine IgE Class CLASS 0; Mouse Urine Proteins,IgE <0.10 kU/L (0.10); Nettle IgE <0.10 kU/L (<0.10); Nettle IgE Class CLASS 0; Oak IgE <0.10 kU/L (<0.10); Penicillium chrysogenum IgE <0.10 kU/L (<0.10); Penicillium chrysogenum IgE Cl CLASS 0; Rough Marshelder IgE <0.10 kU/L (<0.10); Rough Marshelder IgE Class CLASS 0; Timothy Grass IgE <0.10 kU/L (<0.10); Timothy Grass IgE Class CLASS 0; White Ash IgE Class CLASS 0
[2024-02-22 13:41] LABS: Alternaria Alternata IgG <2.0 mcg/mL (<13.6); Aspergillus fumigatus IgG NOT DETECTED; Aureobasidium pullulans IgG <13.6 mcg/mL (<13.6); Cladosporium herbarium IgG <14.7 mcg/mL (<14.7); Phoma ssp. IgG <6.6 mcg/mL (<6.6); Saccaharopoly. rectivirgula NOT DETECTED
== END | disposition home or self-care (01) ==
LOC: LABWHC1 13:53
PROVIDERS: ATTEND Internal Medicine Pulmonary Disease
DX: J44.9 Chronic obstructive pulmonary disease, unspecified (principal); J30.9 Allergic rhinitis, unspecified; J45.50 Severe persistent asthma, uncomplicated; R06.00 Dyspnea, unspecified
CPT/HCPCS: 36415; 82103; 82104; 82785; 85025; 86001; 86003; 86606; 86609

== ENCOUNTER → 2024-02-26 | Outpatient (CLI) | payer MEDICARE ==
--- NOTE | 2024-02-26 19:22 | CT ---
EXAMINATION TYPE: CT chest wo con CT DLP: 457 mGycm, Automated exposure control for dose reduction was used. DATE OF EXAM: 02/26/2024 3:10 PM COMPARISON: Chest radiograph from same day. Multiple CTs of the chest with most recent on . CLINICAL INDICATION:Male, 84 years old with history of R006.00 dyspnea; PHH, shortness of breath TECHNIQUE: Multiple axial images were obtained through the chest. Sagittal and coronal reformats were created for review. Contrast used: mL of (None if empty) Oral contrast used: (None if empty) FINDINGS: LUNGS/ PLEURA: Mild centrilobular emphysema appearance. Question of micronodular left lower lobe inf iltrate AIRWAY: Patent and unremarkable. HEART: Size within normal limits. Densely calcified coronary arteries MEDIASTINUM: No gross evidence of adenopathy. VASCULATURE: No aortic aneurysm. MUSCULOSKELETAL: No acute osseous abnormalities SOFT TISSUES/LYMPH NODES: Unremarkable. LOWER NECK: No significant findings. UPPER ABDOMEN: No significant findings. IMPRESSION: Mild centrilobular emphysema appearance. Question of micronodular left lower lobe infiltrate . Moderately pronounced coronary artery disease. Follow up recommendations for incidental pulmonary nodules, if there are any, are per [employer]ischner?[employer] [place] [employer] or [employer]. https://radiopaedia.org/articles/vbcvwvbabu-ygxqoyb-zwqgkgaif-mwxfbx-[email or web address]-[email or web address]?lang=us
== END ==
LOC: CPPFTMAIN 13:41
PROVIDERS: ATTEND Internal Medicine Pulmonary Disease
DX: R06.00 Dyspnea, unspecified (principal); I10 Essential (primary) hypertension; I25.10 Atherosclerotic heart disease of native coronary artery without angina pectoris; E78.5 Hyperlipidemia, unspecified; I27.20 Pulmonary hypertension, unspecified; I35.0 Nonrheumatic aortic (valve) stenosis; Z79.02 Long term (current) use of antithrombotics/antiplatelets; Z87.891 Personal history of nicotine dependence
CPT/HCPCS: 71250; 94060; 94726; 94729

== ENCOUNTER 2024-04-08 16:38 | Emergency (ER) | payer MEDICARE ==
--- NOTE | 2024-04-08 16:53 | ED ---
Abdominal Pain HPI - General Source: patient, RN notes reviewed Mode of arrival: wheelchair Limitations: no limitations <Apryl Luna - Last Filed: 04/08/24 16:51> - General Source: patient, RN notes reviewed Mode of arrival: wheelchair Limitations: no limitations - History of Present Illness MD Complaint: abdominal pain <Rylie Dacosta - Last Filed: 04/09/24 12:13> - General Chief Complaint: Abdominal Pain Stated Complaint: TACO, constipation Time Seen by Provider: 04/08/24 16:51 - History of Present Illness Initial Comments: Quick note: 84-year-old male presented the ER with a chief complaint of constipation. Patient has not had a bowel movement in the past 4 days. He is now endorsing abdominal bloating. He has tried milk of magnesia without any relief. Patient is starting to have some difficulty in breathing as he typically takes 4 breathing treatments daily but has only had 1 today. No history of bowel surgeries or resection. (Apryl Luna) This is an 84-year-old male who presents to the emergency department for abdominal pain and constipation. Last bowel movement was 4 days ago. He states that he does not typically have problems with constipation, however when he does, [id number] treatments usually take care of the problem. He has tried milk of magnesia and other [id number]-sli-[id number] treatments without any relief. Yesterday he began to vomit, but has not had any episodes of vomiting since. Does not believe that he is passing gas any longer either. Denies any history of bowel obstructions. Reports shortness of breath because he is scared to use his breathing treatments, because he thinks that they will make him vomit. (Rylie Dacosta) - Related Data Home Medications Medication Instructions Recorded Confirmed Clopidogrel [Plavix] 75 mg PO DAILY 01/04/24 04/08/24 dilTIAZem HCL 30 mg PO TID 01/04/24 04/08/24 Albuterol Nebulized [Ventolin 2.5 mg INHALATION RT-QID 04/08/24 04/08/24 Nebulized] Budesonide [Pulmicort] 0.5 mg INHALATION RT-BID 04/08/24 04/08/24 Cyanocobalamin (Vitamin B-12) 1,000 mcg PO DAILY 04/08/24 04/08/24 [Vitamin B-12] Ferrous Sulfate [Feosol] 325 mg PO DAILY 04/08/24 04/08/24 Folic Acid 1 mg PO DAILY 04/08/24 04/08/24 Montelukast [Singulair] 10 mg PO DAILY 04/08/24 04/08/24 Previous Rx's Medication Instructions Recorded Atorvastatin [Lipitor] 40 mg PO DAILY #30 tab 04/19/19 Aspirin 81 mg PO DAILY #90 tab 10/13/23 Lactulose 10 - 20 gm PO DAILY PRN #473 ml 04/08/24 Allergies Allergy/AdvReac Type Severity Reaction Status Date / Time No Known Allergies Allergy Verified 04/08/24 20:45 Review of Systems ROS Other: All systems not noted in ROS Statement are negative. <Apryl Luna - Last Filed: 04/08/24 16:51> ROS Other: All systems not noted in ROS Statement are negative. <Rylie Dacosta - Last Filed: 04/09/24 12:13> ROS Statement: Those systems with pertinent positive or pertinent negative responses have been documented in the HPI. Past Medical History Past Medical History: Osteoarthritis (OA) Additional Past Medical History / Comment(s): Arthritis especially in bilateral hands, bone spurs in neck History of Any Multi-Drug Resistant Organisms: None Reported Past Surgical History: Heart Catheterization, Hernia Repair Additional Past Surgical History / Comment(s): Colonoscopy with benign polypectomy, R inguinal repair, bilateral cataract removal/lens implants. Past Anesthesia/Blood Transfusion Reactions: No Reported Reaction Additional Past Alcohol Use History / Comment(s): Pt started smoking in 1 and quit in 1991. Pt states he drinks 4 beers a day and last drank 04/16/19 - Past Family History Father Family Medical History: No Reported History Additional Family Medical History / Comment(s): Father was healthy and at the age of 86yrs. Mother Family Medical History: No Reported History Additional Family Medical History / Comment(s): Mother was healthy. She at the age of 88yrs. Brother(s) Family Medical History: COPD <Apryl Luna - Last Filed: 04/08/24 16:51> General Exam <Apryl Luna - Last Filed: 04/08/24 16:51> Limitations: no limitations General appearance: alert, in no apparent distress Head exam: Present: atraumatic, normocephalic, normal inspection Respiratory exam: Present: normal lung sounds bilaterally. Absent: respiratory distress, wheezes, rales, rhonchi, stridor Cardiovascular Exam: Present: regular rate, normal rhythm, normal heart sounds. Absent: systolic murmur, diastolic murmur, rubs, gallop, clicks GI/Abdominal exam: Present: distended, tenderness, hypoactive bowel sounds Neurological exam: Present: alert, oriented X3, CN II-XII intact Psychiatric exam: Present: normal affect, normal mood Skin exam: Present: warm, dry, intact, normal color. Absent: rash <Rylie Dacosta - Last Filed: 04/09/24 12:13> - General Exam Comments Initial Comments: Visual Physical Exam Vital signs reviewed General: Well-appearing, nontoxic, no acute distress. Head: Normocephalic, atraumatic Eyes: PERRLA, EOMI ENT: Airway patent Chest: Nonlabored breathing Skin: No visual rash, normal skin tone Neuro: Alert and oriented 3 Musculoskeletal: No gross abnormalities (Apryl Luna) Course Vital Signs 04/08/24 04/08/24 04/08/24 17:27 18:30 19:34 Temperature 97.7 F Pulse Rate 98 83 80 Respiratory 18 18 Rate Blood Pressure 113/57 123/60 O2 Sat by Pulse 93 L 97 Oximetry 04/08/24 04/08/24 19:44 23:18 Temperature 98.4 F Pulse Rate 82 88 Respiratory 16 Rate Blood Pressure 129/60 O2 Sat by Pulse 95 Oximetry Medical Decision Making <Apryl Luna - Last Filed: 04/08/24 16:51> - Lab Data Result diagrams: 04/08/24 18:04 04/08/24 18:04 - Radiology Data Radiology results: report reviewed, image reviewed <Rylie Dacosta - Last Filed: 04/09/24 12:13> - Medical Decision Making I performed the quick note portion of this chart. Electronically signed by Apryl Luna PA-C (Apryl Luna) This is an 84 year old male who presents to the emergency department for abdominal pain and constipation. Was pt. sent in by a medical professional or institution? @ -No Did you speak to anyone other than the patient for history? @ -No Did you review nursing and triage notes? @ -Yes, and I agree, it is accurate with regards to the patient's symptoms. Were old charts reviewed? @ -No Differential Diagnosis? @ -Differential Abdominal Pain Men: Appendicitis, cholecystitis, diverticulosis, ischemic bowel, pancreatitis, hepatitis, UTI, gastroenteritis, AAA, incarcerated hernia, bowel obstruction, constipation, inflammatory bowel, hepatitis, peptic ulcer disease, splenic infarction, perforated viscus, testicular torsion, this is not meant to be an all-inclusive list EKG interpreted by me (3pts min.)? @ -Not obtained X-rays interpreted by me (1pt min.)? @ -Not obtained CT interpreted by me (1pt min.)? @ -CT scan of the abdomen and pelvis obtained. My interpretation identifies a large amount of stool in the rectum. U/S interpreted by me (1pt. min.)? @ -Not obtained What testing was considered but not performed? (CT, X-rays, U/S, labs)? Why? @ -None What meds were considered but not given? Why? @ -None Did you discuss the management of the patient with other professionals? @ -No Did you reconcile home meds? @ -No Was smoking cessation discussed for >3mins.? @ -No Was critical care preformed (if so, how long)? @ -No Were there social determinants of health that impacted care today? How? (Homelessness, low income, unemployed, alcoholism, drug addiction, transportation, low edu. Level, literacy, decrease access to med. care, custodial, rehab)? @ -No Was there de-escalation of care discussed even if they declined? (Discuss DNR or withdrawal of care, Hospice)? @ -No What co-morbidities impacted this encounter? (DM, HTN, Smoking, COPD, CAD, Cancer, CVA, Hep., AIDS, mental health diagnosis, sleep apnea, morbid obesity)? @ -None Was patient admitted / discharged? @ -Discharged. Lab work demonstrates mild leukocytosis and signs of dehydration. CT scan of the abdomen and pelvis obtained demonstrating a large distended fluid-filled cecum and a moderate to large amount of stool in the r ectum. They did also note a possible apple core lesion in the ascending colon/hepatic flexure and a colonoscopy was advised. Findings reviewed with the patient. Enema was administered and the patient was able to produce a decent sized bowel movement, which he states improved his symptoms. He was given a prescription for lactulose to continue taking daily for management of the constipation. We also discussed having him remain well-hydrated, as these treatments can be dehydrating and his labs did also demonstrate signs of dehydration. Also advised following up with Dr. Cazares for a colonoscopy due to the CT scan findings. Patient discharged home in stable condition. Case discussed with ED attending Dr. Goins. Return precautions reviewed in depth, the patient is instructed to return to the emergency department with any new, worsening, or concerning symptoms. Patient verbalized understanding. Undiagnosed new problem with uncertain prognosis? @ -None Drug Therapy requiring intensive monitoring for toxicity (Heparin, Nitro, Insulin, Cardizem)? @ -None Were any procedures done? @ -None Diagnosis/symptom? @ -Constipation Acute, or Chronic, or Acute on Chronic? @ -Acute Uncomplicated (without systemic symptoms) or Complicated (systemic symptoms)? @ -Uncomplicated Side effects of treatment? @ -None Exacerbation, Progression, or Severe Exacerbation] @ -Not applicable Poses a threat to life or bodily function? @ -No (Rylie Dacosta) - Lab Data Lab Results 04/08/24 04/08/24 04/08/24 Range/Units 18:04 18:04 18:04 WBC 12.9 H (3.8-10.6) k/uL RBC 4.67 (4.30-5.90) m/uL Hgb 13.7 (13.0-17.5) gm/dL Hct 44.7 (39.0-53.0) % MCV 95.8 (80.0-100.0) fL MCH 29.4 (25.0-35.0) pg MCHC 30.7 L (31.0-37.0) g/dL RDW 16.5 H (11.5-15.5) % Plt Count 263 (150-450) k/uL MPV 7.6 Neutrophils % 90 % Lymphocytes % 4 % Monocytes % 5 % Eosinophils % 0 % Basophils % 0 % Neutrophils # 11.6 H (1.3-7.7) k/uL Lymphocytes # 0.5 L (1.0-4.8) k/uL Monocytes # 0.6 (0-1.0) k/uL Eosinophils # 0.0 (0-0.7) k/uL Basophils # 0.0 (0-0.2) k/uL Hypochromasia Marked Anisocytosis Slight Sodium 139 (137-145) mmol/L Potassium 4.5 (3.5-5.1) mmol/L Chloride 101 (98-107) mmol/L Carbon Dioxide 29 (22-30) mmol/L Anion Gap 9 mmol/L BUN 23 H (9-20) mg/dL Creatinine 1.18 (0.66-1.25) mg/dL Est GFR (CKD-EPI)AfAm 64 (>60 ml/min/1.73 sqM) Est GFR (CKD-EPI)NonAf 56 (>60 ml/min/1.73 sqM) Glucose 130 H (74-99) mg/dL Plasma Lactic Acid Lyle 1.3 (0.7-2.0) mmol/L Calcium 9.8 (8.4-10.2) mg/dL Phosphorus (2.5-4.5) mg/dL Magnesium (1.6-2.3) mg/dL Total Bilirubin 1.0 (0.2-1.3) mg/dL AST 24 (17-59) U/L ALT 14 (4-49) U/L Alkaline Phosphatase 97 (38-126) U/L Total Protein 7.3 (6.3-8.2) g/dL Albumin 4.4 (3.5-5.0) g/dL Amylase 54 (30-110) U/L Lipase 35 (23-300) U/L 04/08/24 Range/Units 19:24 WBC (3.8-10.6) k/uL RBC (4.30-5.90) m/uL Hgb (13.0-17.5) gm/dL Hct (39.0-53.0) % MCV (80.0-100.0) fL MCH (25.0-35.0) pg MCHC (31.0-37.0) g/dL RDW (11.5-15.5) % Plt Count (150-450) k/uL MPV Neutrophils % % Lymphocytes % % Monocytes % % Eosinophils % % Basophils % % Neutrophils # (1.3-7.7) k/uL Lymphocytes # (1.0-4.8) k/uL Monocytes # (0-1.0) k/uL Eosinophils # (0-0.7) k/uL Basophils # (0-0.2) k/uL Hypochromasia Anisocytosis Sodium (137-145) mmol/L Potassium (3.5-5.1) mmol/L Chloride (98-107) mmol/L Carbon Dioxide (22-30) mmol/L Anion Gap mmol/L BUN (9-20) mg/dL Creatinine (0.66-1.25) mg/dL Est GFR (CKD-EPI)AfAm (>60 ml/min/1.73 sqM) Est GFR (CKD-EPI)NonAf (>60 ml/min/1.73 sqM) Glucose (74-99) mg/dL Plasma Lactic Acid Lyle (0.7-2.0) mmol/L Calcium (8.4-10.2) mg/dL Phosphorus 3.1 (2.5-4.5) mg/dL Magnesium 2.3 (1.6-2.3) mg/dL Total Bilirubin (0.2-1.3) mg/dL AST (17-59) U/L ALT (4-49) U/L Alkaline Phosphatase (38-126) U/L Total Protein (6.3-8.2) g/dL Albumin (3.5-5.0) g/dL Amylase (30-110) U/L Lipase (23-300) U/L Disposition <Apryl Luna - Last Filed: 04/08/24 16:51> Is patient prescribed a controlled substance at d/c from ED?: No Time of Disposition: 22:47 (\) <Rylie Dacosta - Last Filed: 04/09/24 12:13> Clinical Impression: Constipation Disposition: HOME SELF-CARE Instructions (If sedation given, give patient instructions): Constipation (ED) Additional Instructions: Return to the emergency department with any new, worsening, or concerning symptoms. Begin taking the lactulose daily for management of the constipation. Before this try using the GoLytely solution provided in the emergency department. Make sure you are drinking plenty of fluids throughout this process, as all of these treatments can be dehydrating and fluid is needed to help move your bowels Follow-up with Dr. Botello, gastroenterology, for a colonoscopy. Follow up with your primary care provider in 1-2 days. Prescriptions: Lactulose 10 - 20 gm PO DAILY PRN #473 ml PRN Reason: Constipation Referrals: [facility],Clinic [Primary Care Provider] - 1-2 days Geeta Cazares MD [STAFF PHYSICIAN] - 1-2 days
[2024-04-08 18:33] LABS: Anisocytosis Slight; Basophils % (A) 0 %; Eosinophils % (A) 0 %; HCT 44.7 % (39.0-53.0); HGB 13.7 gm/dL (13.0-17.5); Hypochromasia Marked; Lymphocytes # (A) 0.5 k/uL (1.0-4.8); Lymphocytes % (A) 4 %; MCH 29.4 pg (25.0-35.0); MCHC 30.7 g/dL (31.0-37.0); MCV 95.8 fL (80.0-100.0); Mean Platelet Volume 7.6; Monocytes # (A) 0.6 k/uL (0-1.0); Monocytes % (A) 5 %; Neutrophils # (A) 11.6 k/uL (1.3-7.7); Neutrophils % (A) 90 %; Platelet Count 263 k/uL (150-450); RBC 4.67 m/uL (4.30-5.90); RDW 16.5 % (11.5-15.5); WBC 12.9 k/uL (3.8-10.6)
[2024-04-08 18:50] LABS: ALT 14 U/L (4-49); AST 24 U/L (17-59); African American GFR (CKD) 64 (>60 ml/min/1.73 sqM); Albumin 4.4 g/dL (3.5-5.0); Alkaline Phosphatase 97 U/L (38-126); Amylase 54 U/L (30-110); Anion Gap 9 mmol/L; Blood Urea Nitrogen 23 mg/dL (9-20); Calcium 9.8 mg/dL (8.4-10.2); Carbon Dioxide 29 mmol/L (22-30); Chloride 101 mmol/L (98-107); Glucose 130 mg/dL (74-99); Lipase 35 U/L (23-300); Non-African American GFR(CKD) 56 (>60 ml/min/1.73 sqM); Potassium 4.5 mmol/L (3.5-5.1); Sodium 139 mmol/L (137-145); Total Protein 7.3 g/dL (6.3-8.2)
[2024-04-08] MEDS: IPRATROPIUM-ALBUTEROL 3 ML NEB INHALATION STA (19:34)
--- NOTE | 2024-04-08 19:49 | CT ---
EXAMINATION TYPE: CT abdomen pelvis w con CT DLP: 715.8 mGycm, Automated exposure control for dose reduction was used. DATE OF EXAM: 04/08/2024 7:12 PM COMPARISON: None CLINICAL INDICATION: Male, 84 years old with history of abdominal pain and bloating; Right side abdom inal pain that radiates across abdomen TECHNIQUE: Axial CT abdomen pelvis w con;Sagittal and coronal reformats were created on a separate w orkstation. Contrast used:80 mL of Isovue 300 with IV Contrast, (none if empty) Oral contrast used: without Oral Contrast (none if empty) FINDINGS: LOWER CHEST: Gynecomastia bilaterally. ABDOMEN LIVER: Unremarkable GALLBLADDER AND BILE DUCTS: Unremarkable. PANCREAS: Unremarkable. SPLEEN: Unremarkable. ADRENAL GLANDS: Unremarkable. KIDNEYS AND URETERS: No evidence of hydronephrosis or renal calculus. The ureters are unremarkable. PELVIS BLADDER: Unremarkable REPRODUCTIVE: Prostate is enlarged in size measuring 5.8 cm in transverse dimension. ABDOMEN & PELVIS STOMACH AND BOWEL: No evidence of bowel obstruction. Large stool burden in the rectum measuring up to 6.0 cm in transverse dimension. There is area of short segment stricturing The hepatic flexure series 202 image 29. Moderate amount stool seen within the rectum measuring up to r 7.0 cm in transverse dimension. Moderate hiatal hernia. PERITONEUM/RETROPERITONEUM: No evidence of pneumoperitoneum or free fluid. VASCULATURE: No evidence of aortic aneurysm. MUSCULOSKELETAL: No acute osseous abnormalities. Mild disc degeneration changes are present throughou t the thoracolumbar spine. Moderate neural foraminal stenosis bilaterally at L4-L5 and L5-S1. LYMPH NODES: No gross evidence for lymphadenopathy. SOFT TISSUE/ABDOMINAL WALL: Unremarkable IMPRESSION: 1. Large distended fluid-filled cecum. Possible apple core lesion in the ascending colon/hepatic fle xure. Colonoscopy recommended if not recently performed. No lymphadenopathy at this time. No liver le sions definitively visualized. 2. Moderate hiatal hernia. 3. Moderate to large amount stool in the rectum.
[2024-04-08 19:54] LABS: Magnesium 2.3 mg/dL (1.6-2.3); Phosphorus 3.1 mg/dL (2.5-4.5)
[2024-04-08] MEDS: NA PHOS,M-B/NA PHOS,DI-BA 133 ML ENEMA RECTAL STA (20:46)
[2024-04-08] MEDS: ONDANSETRON 4 MG ODT STARTER PACK 2 TAB BTL PO STA (23:18)
[2024-04-08] MEDS: PEG 3350 (236 GM/BTL) + LYTES 4,000 ML BOTTLE PO ONE (23:18)
[2024-04-08 23:20] VITALS: BP 129/60; PULSE 88; RESP 16; TEMP 98.4
== END 2024-04-08 23:25 | disposition home or self-care (01) ==
LOC: EC 16:38
DX: K59.00 Constipation, unspecified (principal)
CPT/HCPCS: 36415; 74177; 80053; 82150; 83605; 83690; 83735; 84100; 85025; 94640; 99284

== ENCOUNTER 2024-04-09 23:24 | Inpatient (IN) | payer MEDICARE ==
[2024-04-10] MEDS: ONDANSETRON 4 MG/2 ML VIAL IVP STA ×2 (00:33→01:31)
[2024-04-10] MEDS: SODIUM CHLORIDE 0.9% 1,000 ML IV STA (00:34)
[2024-04-10] MEDS: SODIUM CHLORIDE 0.9% 500 ML 500 ML IV STA (00:34)
[2024-04-10 00:55] LABS: Anisocytosis Slight; Basophils % (A) 0 %; Eosinophils # (A) 0.1 k/uL (0-0.7); Eosinophils % (A) 1 %; HCT 41.1 % (39.0-53.0); HGB 12.8 gm/dL (13.0-17.5); Hypochromasia Moderate; Lymphocytes # (A) 0.8 k/uL (1.0-4.8); Lymphocytes % (A) 9 %; MCH 29.5 pg (25.0-35.0); MCHC 31.1 g/dL (31.0-37.0); MCV 94.7 fL (80.0-100.0); Mean Platelet Volume 7.7; Monocytes # (A) 0.5 k/uL (0-1.0); Monocytes % (A) 6 %; Neutrophils # (A) 6.7 k/uL (1.3-7.7); Neutrophils % (A) 83 %; Platelet Count 251 k/uL (150-450); RBC 4.33 m/uL (4.30-5.90); RDW 16.5 % (11.5-15.5); WBC 8.1 k/uL (3.8-10.6)
--- NOTE | 2024-04-10 01:06 | ED ---
Recheck HPI - General Chief Complaint: Nausea/Vomiting/Diarrhea Stated Complaint: Medication reaction Time Seen by Provider: 04/10/24 00:27 Source: patient, family, RN notes reviewed, old records reviewed, Caregiver Mode of arrival: wheelchair Limitations: no limitations - History of Present Illness Initial Comments: This is an 84-year-old male this male presents today for evaluation of severe nausea vomiting abdominal pain significant abdominal distention recent ER visit yesterday where he was given enema and GoLytely now he has severe and worsening abdominal pain here in the emergency room persisting here in the ER without fever. Patient does have significant MD Complaint: wound re-check, abnormal lab -: days(s) Returns Today for: Called Because of Abnormal Lab/Test, persistent/worsening pain related to initial visit Symptoms Since Prior Visit: no new symptoms Context: planned re-check Associated Symptoms: none Treatments Prior to Arrival: Given Pain Meds on - Related Data Home Medications Medication Instructions Recorded Confirmed Clopidogrel [Plavix] 75 mg PO DAILY 01/04/24 04/10/24 dilTIAZem HCL 30 mg PO TID 01/04/24 04/10/24 Albuterol Nebulized [Ventolin 2.5 mg INHALATION RT-QID 04/08/24 04/10/24 Nebulized] Budesonide [Pulmicort] 0.5 mg INHALATION RT-BID 04/08/24 04/10/24 Cyanocobalamin (Vitamin B-12) 1,000 mcg PO DAILY 04/08/24 04/10/24 [Vitamin B-12] Ferrous Sulfate [Feosol] 325 mg PO DAILY 04/08/24 04/10/24 Folic Acid 1 mg PO DAILY 04/08/24 04/10/24 Montelukast [Singulair] 10 mg PO DAILY 04/08/24 04/10/24 Previous Rx's Medication Instructions Recorded Atorvastatin [Lipitor] 40 mg PO DAILY #30 tab 04/19/19 Aspirin 81 mg PO DAILY #90 tab 10/13/23 Lactulose 10 - 20 gm PO DAILY PRN #473 ml 04/08/24 Allergies Allergy/AdvReac Type Severity Reaction Status Date / Time No Known Allergies Allergy Verified 04/10/24 06:55 Review of Systems ROS Statement: Those systems with pertinent positive or pertinent negative responses have been documented in the HPI. ROS Other: All systems not noted in ROS Statement are negative. Past Medical History Past Medical History: Osteoarthritis (OA) Additional Past Medical History / Comment(s): Arthritis especially in bilateral hands, bone spurs in neck History of Any Multi-Drug Resistant Organisms: None Reported Past Surgical History: Heart Catheterization, Hernia Repair Additional Past Surgical History / Comment(s): Colonoscopy with benign polypectomy, R inguinal repair, bilateral cataract removal/lens implants. Past Anesthesia/Blood Transfusion Reactions: No Reported Reaction Past Psychological History: No Psychological Hx Reported Smoking Status: Former smoker Past Alcohol Use History: Occasional Past Drug Use History: None Reported - Past Family History Father Family Medical History: No Reported History Additional Family Medical History / Comment(s): Father was healthy and at the age of 86yrs. Mother Family Medical History: No Reported History Additional Family Medical History / Comment(s): Mother was healthy. She at the age of 88yrs. Brother(s) Family Medical History: COPD General Exam Limitations: no limitations General appearance: alert, in no apparent distress Head exam: Present: atraumatic, normocephalic, normal inspection Eye exam: Present: normal appearance, PERRL, EOMI. Absent: scleral icterus, conjunctival injection, periorbital swelling ENT exam: Present: normal exam, mucous membranes moist Neck exam: Present: normal inspection. Absent: tenderness, meningismus, lymphadenopathy Respiratory exam: Present: normal lung sounds bilaterally. Absent: respiratory distress, wheezes, rales, rhonchi, stridor Cardiovascular Exam: Present: regular rate, normal rhythm, normal heart sounds. Absent: systolic murmur, diastolic murmur, rubs, gallop, clicks GI/Abdominal exam: Present: soft, normal bowel sounds. Absent: distended, tenderness, guarding, rebound, rigid Extremities exam: Present: normal inspection, full ROM, normal capillary refill. Absent: tenderness, pedal edema, joint swelling, calf tenderness Back exam: Present: normal inspection Neurological exam: Present: alert, oriented X3, CN II-XII intact Psychiatric exam: Present: normal affect, normal mood Skin exam: Present: warm, dry, intact, normal color. Absent: rash Course Vital Signs 04/09/24 04/10/24 04/10/24 23:26 00:39 01:25 Temperature 97.9 F Pulse Rate 86 73 78 Respiratory 18 18 16 Rate Blood Pressure 129/61 170/85 162/77 O2 Sat by Pulse 95 96 96 Oximetry 04/10/24 04/10/24 04/10/24 02:48 04:33 05:05 Temperature 97.8 F Pulse Rate 89 84 76 Respiratory 18 18 16 Rate Blood Pressure 127/64 127/61 128/57 O2 Sat by Pulse 95 97 98 Oximetry - Reevaluation(s) Reevaluation #1: 04/10/24 01:58 Records reviewed Reevaluation #2: 04/10/24 01:59 Patient symptoms improved Reevaluation #3: 04/10/24 01:59 Patient informed of results and questions answered Reevaluation #4: Was pt. sent in by a medical professional or institution (, [facility], EXECUTIVE SERVICES ADMINISTRATOR, urgent care, hospital, or correction...) When possible be specific @ -no Did you speak to anyone other than the patient for history (EMS, parent, family, police, friend...)? What history was obtained from this source @ -no Did you review nursing and triage notes (agree or disagree)? Why? @ -agree Are old charts reviewed (outside hosp., previous admission, EMS record, old EKG, old radiological studies, urgent care reports/EKG's, correction records)? Report findings @ -yes Differential Diagnosis (chest pain, altered mental status, abdominal pain women, abdominal pain men, vaginal bleeding, weakness, fever, dyspnea, syncope, headache, dizziness, GI bleed, back pain, seizure, CVA, palpatations, mental health, musculoskeletal)? @ -prior EKG interpreted by me (3pts min.). @ -yes X-rays interpreted by me (1pt min.). @ -no CT interpreted by me (1pt min.). @ -Positive small bowel obstruction U/S interpreted by me (1pt. min.). @ -no What testing was considered but not performed or refused? (CT, X-rays, U/S, labs)? Why? @ -none What meds were considered but not given or refused? Why? @ -none Did you discuss the management of the patient with other professionals (professionals i.e. [facility] Bender, EXECUTIVE SERVICES ADMINISTRATOR, lab, RT, psych nurse, social staff worker, jet mechanic, teacher, search and rescue officer, dependency case manager)? Give summary @ -no Was smoking cessation discussed for >3mins.? @ -no Was critical care preformed (if so, how long)? @ -no Were there social determinants of health that impacted care today? How? (Homelessness, low income, unemployed, alcoholism, drug addiction, transportation, low edu. Level, literacy, decrease access to med. care, long term, rehab)? @ -none Was there de-escalation of care discussed even if they declined (Discuss DNR or withdrawal of care, Hospice)? DNR status @ -no What co-morbidities impacted this encounter? (DM, HTN, Smoking, COPD, CAD, Cancer, CVA, ARF, Chemo, Hep., AIDS, mental health diagnosis, sleep apnea, morbid obesity)? @ -none Was patient admitted / discharged? Hospital course, mention meds given and route, prescriptions, significant lab abnormalities, going to OR and other pertinent info. @ - 84 male to ER for evaluation of bowel issues abdominal pain small bowel obstruction with distention. Patient will be admitted for surgical evaluation and management Admitted Undiagnosed new problem with uncertain prognosis? @ -no Drug Therapy requiring intensive monitoring for toxicity (Heparin, Nitro, Insulin, Cardizem)? @ -no Were any procedures done? @ -no Diagnosis/symptom? @ -small bowel obstruction Acute, or Chronic, or Acute on Chronic? @ -Acute Uncomplicated (without systemic symptoms) or Complicated (systemic symptoms)? @ -Complicated Side effects of treatment? @ -no Exacerbation, Progression, or Severe Exacerbation? @ -exacerbation Poses a threat to life or bodily function? How? (Chest pain, [place], [place], pneumonia, PE, COPD, DKA, ARF, appy, cholecystitis, CVA, Diverticulitis, Homicidal, Suicidal, threat to staff... and all critical care pts) @ -yes dreams of age Reevaluation #5: Differential Abdominal Pain Men: Appendicitis, cholecystitis, diverticulosis, ischemic bowel, pancreatitis, hepatitis, UTI, gastroenteritis, AAA, incarcerated hernia, bowel obstruction, constipation, inflammatory bowel, hepatitis, peptic ulcer disease, splenic infarction, perforated viscus, testicular torsion, this is not meant to be an all-inclusive list - Consultations Consultation #1: Sound to accept this admission Medical Decision Making - Medical Decision Making 84 male to ER for evaluation of bowel issues abdominal pain small bowel obstruction with distention. Patient will be admitted for surgical evaluation and management - Lab Data Result diagrams: 04/12/24 05:33 04/12/24 05:33 Lab Results 04/10/24 04/10/24 04/10/24 Range/Units 00:33 00:33 00:33 WBC 8.1 (3.8-10.6) k/uL RBC 4.33 (4.30-5.90) m/uL Hgb 12.8 L (13.0-17.5) gm/dL Hct 41.1 (39.0-53.0) % MCV 94.7 (80.0-100.0) fL MCH 29.5 (25.0-35.0) pg MCHC 31.1 (31.0-37.0) g/dL RDW 16.5 H (11.5-15.5) % Plt Count 251 (150-450) k/uL MPV 7.7 Neutrophils % 83 % Lymphocytes % 9 % Monocytes % 6 % Eosinophils % 1 % Basophils % 0 % Neutrophils # 6.7 (1.3-7.7) k/uL Lymphocytes # 0.8 L (1.0-4.8) k/uL Monocytes # 0.5 (0-1.0) k/uL Eosinophils # 0.1 (0-0.7) k/uL Basophils # 0.0 (0-0.2) k/uL Hypochromasia Moderate Anisocytosis Slight Sodium 135 L (137-145) mmol/L Potassium 4.5 (3.5-5.1) mmol/L Chloride 100 (98-107) mmol/L Carbon Dioxide 28 (22-30) mmol/L Anion Gap 7 mmol/L BUN 34 H (9-20) mg/dL Creatinine 1.25 (0.66-1.25) mg/dL Est GFR (CKD-EPI)AfAm 60 (>60 ml/min/1.73 sqM) Est GFR (CKD-EPI)NonAf 52 (>60 ml/min/1.73 sqM) Glucose 103 H (74-99) mg/dL Calcium 9.6 (8.4-10.2) mg/dL Phosphorus 2.7 (2.5-4.5) mg/dL Magnesium 2.4 H (1.6-2.3) mg/dL Total Bilirubin 1.0 (0.2-1.3) mg/dL AST 31 (17-59) U/L ALT 14 (4-49) U/L Alkaline Phosphatase 83 (38-126) U/L Total Protein 6.5 (6.3-8.2) g/dL Albumin 4.0 (3.5-5.0) g/dL Lipase 45 (23-300) U/L Blood Type Confirm A Positive - EKG Data -: EKG Interpreted by Me (EKG is sinus 66 OH 255 QRS 132 QTc 432) - Radiology Data Radiology results: report reviewed (CT abdomen pelvis positive for small bowel obstruction), image reviewed Disposition Clinical Impression: SBO (small bowel obstruction) Disposition: ADMITTED IP TO THIS [facility] Condition: Serious Is patient prescribed a controlled substance at d/c from ED?: No Time of Disposition: 03:00
[2024-04-10 01:08] LABS: ALT 14 U/L (4-49); AST 31 U/L (17-59); African American GFR (CKD) 60 (>60 ml/min/1.73 sqM); Alkaline Phosphatase 83 U/L (38-126); Anion Gap 7 mmol/L; Blood Urea Nitrogen 34 mg/dL (9-20); Calcium 9.6 mg/dL (8.4-10.2); Carbon Dioxide 28 mmol/L (22-30); Chloride 100 mmol/L (98-107); Glucose 103 mg/dL (74-99); Lipase 45 U/L (23-300); Magnesium 2.4 mg/dL (1.6-2.3); Non-African American GFR(CKD) 52 (>60 ml/min/1.73 sqM); Phosphorus 2.7 mg/dL (2.5-4.5); Potassium 4.5 mmol/L (3.5-5.1); Sodium 135 mmol/L (137-145); Total Protein 6.5 g/dL (6.3-8.2)
[2024-04-10] MEDS: HYDROmorphone 0.5 MG/0.5 ML SYRINGE IVP STA ×2 (01:44→18:32)
[2024-04-10] MEDS: LORazepam 2 MG/ML INJ IV STA (01:44)
--- NOTE | 2024-04-10 02:48 | CT ---
EXAM: CT Abdomen and Pelvis Without Intravenous Contrast CLINICAL HISTORY: ITS.REASON CT Reason: pain TECHNIQUE: Axial computed tomography images of the abdomen and pelvis without intravenous contrast. CTDI is 8.3 mGy and DLP is 505.6 mGy-cm. This CT exam was performed using one or more of the following dose reduction techniques: automated exposure control, adjustment of the mA and/or kV according to patient size, and/or use of iterative reconstruction technique. COMPARISON: No relevant prior studies available. FINDINGS: Lung bases: Airspace consolidations at the lung bases, preferentially involving the RIGHT middle lobe, consistent with multilobar pneumonia. ABDOMEN: Liver: Unremarkable. Gallbladder and bile ducts: Unremarkable. No calcified stones. No ductal dilation. Pancreas: Unremarkable. No ductal dilation. Spleen: Unremarkable. No splenomegaly. Adrenals: Unremarkable. No mass. Kidneys and ureters: Unremarkable. No obstructing stones. No hydronephrosis. Stomach and bowel: Dilated small bowel measuring up to 3.2 cm, concerning for bowel obstruction. No definite transition point identified. Recommend surgical evaluation. Associated, diarrheal disease. Diverticulosis, without acute diverticulitis. No free intraperitoneal air. PELVIS: Appendix: No findings to suggest acute appendicitis. Bladder: Wall thickening of the urinary bladder. If there is concern for UTI, urinalysis recommended. No stones. Reproductive: Unremarkable as visualized. ABDOMEN and PELVIS: Intraperitoneal space: Unremarkable. No free air. No significant fluid collection. Bones/joints: Degenerative changes of the spine. No acute fracture. No dislocation. Soft tissues: Unremarkable. Vasculature: Atherosclerotic changes of the aorta. No abdominal aortic aneurysm. Lymph nodes: Unremarkable. No enlarged lymph nodes. IMPRESSION: 1. Airspace consolidations at the lung bases, preferentially involving the RIGHT middle lobe, consistent with multilobar pneumonia. 2. Dilated small bowel measuring up to 3.2 cm, concerning for bowel obstruction. No definite transition point identified. Recommend surgical evaluation. 3. Wall thickening of the urinary bladder. If there is concern for UTI, urinalysis recommended. 4. Diverticulosis, without acute diverticulitis. No free intraperitoneal air.
[2024-04-10] MEDS ORDERED: NALOXONE 0.4 MG/ML 1 ML VIAL IV PRN (03:03)
[2024-04-10] MEDS ORDERED: HYDROmorphone 0.5 MG/0.5 ML SYRINGE IVP PRN (03:03)
[2024-04-10] MEDS: SODIUM CHLORIDE 0.9% 1,000 ML IV SCH (03:28)
[2024-04-10] MEDS: AMPICILLIN-SULBACTAM 3 GM in SODIUM CHLORIDE 0.9% 100 ML IVPB STA (03:28)
--- NOTE | 2024-04-10 07:00 | P.HPIM ---
History of Present Illness H&P Date: 04/10/24 Chief Complaint: Abdominal pain 84 old male with osteoarthritis Patient coming in with 5-day history of worsening diffuse abdominal pain colicky in nature comes and goes 8 out of 10 in severity associated with constipation patient claims that he is not passing gases never had anything similar before denies any surgical history of the abdomen he came in for evaluation a day before was seen in the ED given laxatives and enema and was discharged home however now presenting with worsening symptoms repeated nausea vomiting nonbloody nonbilious denies any syncope or near syncope denies any chest pain trouble breathing denies any coughing fevers or chills denies any changes in urinary habits, denies any GI bleeding Patient admits to daily alcohol 2-3 cocktails a day and smoking denies any street drugs review of systems Pertinent positives as noted in HPI. All other systems were reviewed and are negative on exam Constitutional: No acute distress, conversant, pleasant Eyes: Anicteric sclerae, moist conjunctiva, Pupils equal round reactive to light ENMT: NC/AT Oropharynx clear, no erythema, or exudates Neck: Supple, no masses, or JVD No carotid bruits No thyromegaly Lungs: Clear to auscultation Clear to percussion Normal respiratory effort, no accessory muscle use Cardiovascular: Heart regular in rate and rhythm, Systolic murmurs, no gallops, or rubs No peripheral edema Abdominal: Distended abdomen Tenderness over the lower abdomen with voluntary guarding Normoactive bowel sounds Extremities: No digital cyanosis No clubbing Pedal pulses intact and symmetrical Radial pulses intact and symmetrical No calf tenderness Psychiatric: Alert and oriented to person, place and time Appropriate affect fair judgement Neuro Muscles Strength 5/5 in all 4 extremities Sensation to light touch grossly present throughout Cranial nerves II-XII grossly intact Past Medical History Past Medical History: Osteoarthritis (OA) Additional Past Medical History / Comment(s): Arthritis especially in bilateral hands, bone spurs in neck History of Any Multi-Drug Resistant Organisms: None Reported Past Surgical History: Heart Catheterization, Hernia Repair Additional Past Surgical History / Comment(s): Colonoscopy with benign polype ctomy, R inguinal repair, bilateral cataract removal/lens implants. Past Anesthesia/Blood Transfusion Reactions: No Reported Reaction Past Psychological History: No Psychological Hx Reported Additional Psychological History / Comment(s): Pt resides with his spouse. He is independent. Smoking Status: Former smoker Past Alcohol Use History: Occasional Additional Past Alcohol Use History / Comment(s): Pt started smoking in 1961 and quit in 1991. Past Drug Use History: None Reported - Past Family History Father Family Medical History: No Reported History Additional Family Medical History / Comment(s): Father was healthy and at the age of 86yrs. Mother Family Medical History: No Reported History Additional Family Medical History / Comment(s): Mother was healthy. She at the age of 88yrs. Brother(s) Family Medical History: COPD Medications and Allergies Home Medications Medication Instructions Recorded Confirmed Type Atorvastatin [Lipitor] 40 mg PO DAILY #30 tab 04/19/19 04/08/24 Rx Aspirin 81 mg PO DAILY #90 tab 10/13/23 04/08/24 Rx Clopidogrel [Plavix] 75 mg PO DAILY 01/04/24 04/08/24 History dilTIAZem HCL 30 mg PO TID 01/04/24 04/08/24 History Albuterol Nebulized [Ventolin 2.5 mg INHALATION RT-QID 04/08/24 04/08/24 History Nebulized] Budesonide [Pulmicort] 0.5 mg INHALATION RT-BID 04/08/24 04/08/24 History Cyanocobalamin (Vitamin B-12) 1,000 mcg PO DAILY 04/08/24 04/08/24 History [Vitamin B-12] Ferrous Sulfate [Feosol] 325 mg PO DAILY 04/08/24 04/08/24 History Folic Acid 1 mg PO DAILY 04/08/24 04/08/24 History Lactulose 10 - 20 gm PO DAILY PRN #473 ml 04/08/24 Rx Montelukast [Singulair] 10 mg PO DAILY 04/08/24 04/08/24 History Allergies Allergy/AdvReac Type Severity Reaction Status Date / Time No Known Allergies Allergy Verified 04/10/24 06:55 Physical Exam Vitals: Vital Signs Temp Pulse Pulse Resp BP BP Pulse Ox 04/10/24 05:10 99.6 F 86 125/72 95 04/10/24 05:05 97.8 F 76 16 128/57 98 04/10/24 04:33 84 18 127/61 97 04/10/24 02:48 89 18 127/64 95 04/10/24 01:25 78 16 162/77 96 04/10/24 00:39 73 18 170/85 96 04/09/24 23:26 97.9 F 86 18 129/61 95 Intake and Output 04/09/24 04/09/24 04/10/24 14:59 22:59 06:59 Other: Weight 68.039 kg Results CBC & Chem 7: 04/10/24 00:33 04/10/24 00:33 Labs: Abnormal Lab Results - Last 24 Hours (Table) 04/10/24 04/10/24 Range/Units 00:33 00:33 Hgb 12.8 L (13.0-17.5) gm/dL RDW 16.5 H (11.5-15.5) % Lymphocytes # 0.8 L (1.0-4.8) k/uL Sodium 135 L (137-145) mmol/L BUN 34 H (9-20) mg/dL Glucose 103 H (74-99) mg/dL Magnesium 2.4 H (1.6-2.3) mg/dL Thrombosis Risk Factor Assmnt - Choose All That Apply Any of the Below Risk Factors Present?: No Each Risk Factor Represents 3 Points: Age 75 years or older Other congenital or acquired thrombophilia - If yes, enter type in comment: No Thrombosis Risk Factor Assessment Total Risk Factor Score: 3 Thrombosis Risk Factor Assessment Level: Moderate Risk Assessment and Plan Assessment: 84-year-old male with osteoarthritis coming in with 5-day history of constipation complicated by repeated nausea vomiting despite enemas and laxatives I discussed case with ED doctor and accepted the admission for small bowel obstruction versus acute evaluation with anticipated length of stay less than 2 midnights Small bowel obstruction Strict n.p.o. IV fluid hydration normal saline 75 cc/h Electrolytes unremarkable magnesium 2.[address] of the abdomen showed dilated small bowel suggestive of SBO also was suggestive of diverticulosis without diverticulitis and thickening of the urinary bladder wall, General Surgery consult Pain control with opiates morphine 2 mg IV push every 3 hours as needed for pain Zofran 4 mg IV push every 8 hours as needed Protonix 40 mg IV push. daily CKD stage II Renal function around baseline BUN 34 creatinine 1.25 Continue to monitor renal function and urine output IV fluid hydration normal saline as above Alcohol dependence Admits to daily alcohol dependence Monitor for alcohol withdrawal Benzos per CIWA Thiamine IM once 100 mg Incidental finding of right midlung consolidation This finding was seen on CT scan Patient denies any coughing chest pain trouble breathing fevers or chills Continue to monitor Full code DVT prophylaxis heparin subcu 3 times daily.
[2024-04-10] MEDS: PANTOPRAZOLE 40 MG/10 ML VIAL IV SCH (07:56)
[2024-04-10] MEDS: HEPARIN SODIUM,PORCINE 5,000 UNIT/ML 1 ML VIAL SQ SCH (07:56)
[2024-04-10 09:43] LABS: INR 0.9 (<1.2); Partial Thromboplastin Time 24.7 sec (22.0-30.0); Prothrombin Time 10.2 sec (10.0-12.5)
--- NOTE | 2024-04-10 09:58 | P.PN ---
Progress Note - Text Progress Note Date: 04/10/24 This is a nonbillable document Patient is a 84-year-old male with a past medical history of osteoarthritis who is coming in with 5 days of worsening diffuse abdominal pain and also 2 days of no bowel movement. Patient denies any history of abdominal surgery. In the ED patient had a CT abdomen that showed airspace consolidations at the lung bases preferentially involving the right middle lobe consistent with multilobar pneumonia, dilated small bowel measuring up to 3.2 cm concerning for bowel obstruction with no definite transition point identified, wall thickening of the urinary bladder and diverticulosis without acute diverticulitis. Subjective Patient seen this morning. He denies having any bowel movement or passing gas. Physical exam General examination - Alert and Oriented 3 in NAD Heart - + S1S2 no murmurs Lungs - Clear to auscultation Abdomen distended and no bowel sounds Extremities - No edema BI CONSULTANT - Moving all 4 extremities spontaneously Psych - Calm and cooperative Assessment and plan Small bowel obstruction N.p.o. IV fluids at 75 cc an hour Monitor electrolytes while patient is n.p.o. I reviewed CT abdomen pelvis General surgery consult Will switch IV Dilaudid to IV Toradol as opiates may exacerbate the obstruction Encourage patient to ambulate in the hallways CKD stage II Renal function at baseline Alcohol dependence CIWA protocol Patient not in withdrawal Incidental finding of right midlung consolidation and bilateral lower lung consolidation Patient denying any coughing fevers or chills I will empirically start the patient on IV Rocephin and azithromycin Will check procalcitonin and within normal limits will then discontinue the IV antibiotics DVT prophylaxis: Azithromycin
[2024-04-10] MEDS: AZITHROMYCIN 500 MG in SODIUM CHLORIDE 0.9% 250 ML IVPB SCH (12:10)
--- NOTE | 2024-04-10 12:13 | P.GSCN ---
History of Present Illness Consult date: 04/10/24 History of present illness: CHIEF COMPLAINT: Abdominal pain HISTORY OF PRESENT ILLNESS: This is a 84-year-old male who has been dealing with constipation for about 5 days. He came into the ER on Sunday and was given an enema and had a small bowel movement. He was discharged from the ER with a GoLytely. After drinking part of the GoLytely bowel prep patient had increased abdominal pain and with nausea and vomiting. He came back into the ER had a CT scan completed that had reported dilated small bowel with concerns of small bowel obstruction. Patient reports he is not having any flatus. No bowel movement for about 5 days. No history of bowel obstructions. His last colonoscopy was over 10 years ago. Past surgical history does include a right inguinal hernia repair. Patient has history of coronary disease with cardiac stent placed in October 2023. His last dose of Plavix was yesterday morning. Patient does admit to daily alcohol use. Patient also reporting productive cough. PAST MEDICAL HISTORY: Osteoarthritis, coronary disease, asthma, emphysema PAST SURGICAL HISTORY: Right inguinal hernia repair, colonoscopy with benign polypectomy MEDICATIONS: See below ALLERGIES: See below SOCIAL HISTORY: No illicit drug use. Daily alcohol use. REVIEW OF SYSTEMS: CONSTITUTIONAL: Denies fever or chills. HEENT: Denies blurred vision, vision changes, or eye pain. Denies hemoptysis CARDIOVASCULAR: Denies chest pain or pressure. RESPIRATORY: No shortness of breath. GASTROINTESTINAL: See HPI for pertinent findings HEMATOLOGIC: Denies bleeding disorders. GENITOURINARY: Denies any blood in urine or increased urinary frequency. SKIN: Denies pruitis. Denies rash. PHYSICAL EXAM: VITAL SIGNS: Reviewed GENERAL: Well-developed in no acute distress. HEENT: No sclera icterus. Extraocular movements grossly intact. Moist buccal mucosa. Head is atraumatic, normocephalic. No nasal drainage. ABDOMEN: Distended. Mild discomfort with palpation of the lower abdomen. No guarding NEUROLOGIC: Alert and oriented. Cranial nerves II through XII grossly intact. LABORATORY DATA: WBC 8.1 Hgb 12.8 platelets 251 Sodium 135 potassium 4.5 creatinine 1.25 IMAGING: CT scan abdomen pelvis reports dilated small bowel measuring up to 3.2 cm concerning for bowel obstruction. No definite transition point identified. Diverticulosis without acute diverticulitis. No free intraperitoneal air. Airspace consolidation at the lung bases consistent with multilobar pneumonia ASSESSMENT: 1. Small bowel obstruction 2. Possible pneumonia 3. Daily alcohol use PLAN: -Patient scheduled for exploratory laparotomy with possible bowel resection with Dr. Field -Place NG tube for decompression -Keep patient n.p.o. -Continue IV fluids -Hold Plavix -Possible pneumonia on antibiotics. Chest x-ray ordered -Continue IV fluids -Continue pain management -CIWA protocol PRN for ETOH withdrawal. Currently not in withdrawal Physician Picc Nurse note has been reviewed by physician. Signing provider agrees with the documented findings, assessment, and plan of care. I have personally seen and examined the patient, reviewed the RELAY TESTER /PAs history, exam and MDM and agree with the assessment and plan as written. Based on total visit time, I have performed more than 50% of the visit. As above: Patient with 1 week history or greater of increasing distention and abdominal pain. Decreased bowel function. CAT scan reviewed. Suspect possible acting lesion in ascending colon. This was discussed with patient and his family. Options reviewed. Will proceed with exploratory laparotomy possible bowel resection. Risks of bleeding, infection, scarring, leak, abscess, ileus, ostomy, hernia, dehiscence reviewed. He understands and wishes to proceed. Past Medical History Past Medical History: Osteoarthritis (OA) Additional Past Medical History / Comment(s): Arthritis especially in bilateral hands, bone spurs in neck History of Any Multi-Drug Resistant Organisms: None Reported Past Surgical History: Heart Catheterization, Hernia Repair Additional Past Surgical History / Comment(s): Colonoscopy with benign po lypectomy, R inguinal repair, bilateral cataract removal/lens implants. Past Anesthesia/Blood Transfusion Reactions: No Reported Reaction Past Psychological History: No Psychological Hx Reported Additional Psychological History / Comment(s): Pt resides with his spouse. He is independent. Smoking Status: Former smoker Past Alcohol Use History: Occasional Additional Past Alcohol Use History / Comment(s): Pt started smoking in 1 and quit in 1991. Past Drug Use History: None Reported - Past Family History Father Family Medical History: No Reported History Additional Family Medical History / Comment(s): Father was healthy and at the age of 86yrs. Mother Family Medical History: No Reported History Additional Family Medical History / Comment(s): Mother was healthy. She at the age of 88yrs. Brother(s) Family Medical History: COPD Medications and Allergies Home Medications Medication Instructions Recorded Confirmed Type Atorvastatin [Lipitor] 40 mg PO DAILY #30 tab 04/19/19 04/10/24 Rx Aspirin 81 mg PO DAILY #90 tab 10/13/23 04/10/24 Rx Clopidogrel [Plavix] 75 mg PO DAILY 01/04/24 04/10/24 History dilTIAZem HCL 30 mg PO TID 01/04/24 04/10/24 History Albuterol Nebulized [Ventolin 2.5 mg INHALATION RT-QID 04/08/24 04/10/24 History Nebulized] Budesonide [Pulmicort] 0.5 mg INHALATION RT-BID 04/08/24 04/10/24 History Cyanocobalamin (Vitamin B-12) 1,000 mcg PO DAILY 04/08/24 04/10/24 History [Vitamin B-12] Ferrous Sulfate [Feosol] 325 mg PO DAILY 04/08/24 04/10/24 History Folic Acid 1 mg PO DAILY 04/08/24 04/10/24 History Lactulose 10 - 20 gm PO DAILY PRN #473 ml 04/08/24 04/10/24 Rx Montelukast [Singulair] 10 mg PO DAILY 04/08/24 04/10/24 History Allergies Allergy/AdvReac Type Severity Reaction Status Date / Time No Known Allergies Allergy Verified 04/10/24 06:55 Surgical - Exam Vital Signs Temp Pulse Resp BP Pulse Ox 97.9 F 86 18 129/61 95 04/09/24 23:26 04/09/24 23:26 04/09/24 23:26 04/09/24 23:26 04/09/24 23:26 Results - Labs 04/10/24 00:33 04/10/24 00:33 Abnormal Lab Results - Last 24 Hours (Table) 04/10/24 04/10/24 Range/Units 00:33 00:33 Hgb 12.8 L (13.0-17.5) gm/dL RDW 16.5 H (11.5-15.5) % Lymphocytes # 0.8 L (1.0-4.8) k/uL Sodium 135 L (137-145) mmol/L BUN 34 H (9-20) mg/dL Glucose 103 H (74-99) mg/dL Magnesium 2.4 H (1.6-2.3) mg/dL Diabetes panel 04/10/24 Range/Units 00:33 Sodium 135 L (137-145) mmol/L Potassium 4.5 (3.5-5.1) mmol/L Chloride 100 (98-107) mmol/L Carbon Dioxide 28 (22-30) mmol/L BUN 34 H (9-20) mg/dL Creatinine 1.25 (0.66-1.25) mg/dL Glucose 103 H (74-99) mg/dL Calcium 9.6 (8.4-10.2) mg/dL AST 31 (17-59) U/L ALT 14 (4-49) U/L Alkaline Phosphatase 83 (38-126) U/L Total Protein 6.5 (6.3-8.2) g/dL Albumin 4.0 (3.5-5.0) g/dL Calcium panel 04/10/24 Range/Units 00:33 Calcium 9.6 (8.4-10.2) mg/dL Phosphorus 2.7 (2.5-4.5) mg/dL Albumin 4.0 (3.5-5.0) g/dL Pituitary panel 04/10/24 Range/Units 00:33 Sodium 135 L (137-145) mmol/L Potassium 4.5 (3.5-5.1) mmol/L Chloride 100 (98-107) mmol/L Carbon Dioxide 28 (22-30) mmol/L BUN 34 H (9-20) mg/dL Creatinine 1.25 (0.66-1.25) mg/dL Glucose 103 H (74-99) mg/dL Calcium 9.6 (8.4-10.2) mg/dL Adrenal panel 04/10/24 Range/Units 00:33 Sodium 135 L (137-145) mmol/L Potassium 4.5 (3.5-5.1) mmol/L Chloride 100 (98-107) mmol/L Carbon Dioxide 28 (22-30) mmol/L BUN 34 H (9-20) mg/dL Creatinine 1.25 (0.66-1.25) mg/dL Glucose 103 H (74-99) mg/dL Calcium 9.6 (8.4-10.2) mg/dL Total Bilirubin 1.0 (0.2-1.3) mg/dL AST 31 (17-59) U/L ALT 14 (4-49) U/L Alkaline Phosphatase 83 (38-126) U/L Total Protein 6.5 (6.3-8.2) g/dL Albumin 4.0 (3.5-5.0) g/dL
[2024-04-10] MEDS ORDERED: LORazepam 2 MG/ML INJ IV PRN ×2 (12:15)
--- NOTE | 2024-04-10 12:44 | XR ---
EXAMINATION TYPE: XR chest 1V DATE OF EXAM: 04/10/2024 COMPARISON: 12/01/2021 HISTORY: 84-year-old male NG tube placement TECHNIQUE: Single frontal view of the chest is obtained. FINDINGS: NG tube courses below the diaphragm. Heart normal size. Extensive patchy airspace opacity at the right base. Lesser degree of patchy density at the left base. Upper and mid lungs remain clear . No pleural effusion. IMPRESSION: Right greater than left airspace disease suggesting infectious or aspiration pneumonitis . Satisfactory NG tube.
[2024-04-10] MEDS: LORazepam 2 MG/ML INJ IV PRN (14:26)
[2024-04-10] MEDS: IV FLUID CONTINUATION 1,000 ML IV ONE (15:22)
[2024-04-10] MEDS: ONDANSETRON 4 MG/2 ML VIAL IVP PRN (15:24)
[2024-04-10] MEDS ORDERED: PROPOFOL 10 MG/ML 20 ML VIAL IV ONE (15:30)
[2024-04-10] MEDS ORDERED: SUGAMMADEX SODIUM 200 MG/2 ML SDV IV ONE (15:30)
[2024-04-10] MEDS ORDERED: fentaNYL (PF) 50 MCG/ML 2 ML AMP ONE (15:30)
[2024-04-10] MEDS ORDERED: LIDOCAINE 1% INJ 10MG/ML (20 ML MDV) ONE (15:30)
[2024-04-10] MEDS ORDERED: PHENYLEPHRINE-0.9% NACL SYG 1,000 MCG/10 ML SYRINGE ONE (15:30)
[2024-04-10] MEDS ORDERED: ROCURONIUM 10 MG/ML (5 ML VIAL) IV ONE (15:30)
[2024-04-10] MEDS: metroNIDAZOLE-NS PMX 500 MG in SALINE 1 100ML.BAG IVPB STA (15:36)
[2024-04-10] MEDS: LACTATED RINGERS 1,000 ML IV ONE (16:13)
[2024-04-10] MEDS: SODIUM CHLORIDE 0.9% 1,000 ML IV ONE (16:14)
[2024-04-10] MEDS ORDERED: ONDANSETRON 4 MG/2 ML VIAL IVP PRN (17:46)
[2024-04-10] MEDS ORDERED: BENZOCAINE/MENTHOL LOZENG 1 EACH LOZENGE MUCOUS MEM PRN (17:46)
--- NOTE | 2024-04-10 17:52 | P.OP ---
Date of Procedure: 04/10/24 Procedure(s) Performed: PREOPERATIVE DIAGNOSIS: Bowel obstruction with obstructing mass right colon POSTOPERATIVE DIAGNOSIS: Same PROCEDURE: Exploratory laparotomy with right colectomy SURGEON: Emir EBL: 5 cc ANESTHESIA: General COMPLICATIONS: None OPERATIVE PROCEDURE: Placement placed in the operating table in the supine position. The patient was placed under general anesthesia. Abdomen was then prepped and draped sterilely. Midline incision made using the scalpel. Dissection through the subcutaneous tissues and fascia took place using electrocautery. Entrance into the perineal cavity occurred. Bookwalter retractor was utilized. Patient's small bowel and colon are both significantly distended. Bowel was viable throughout. The palpable mass was identified at the distal ascending colon. The cecum and terminal ileum were mobilized by incising the peritoneum. The white line of Toldt was incised as well. The mesentery of the cecum and ascending colon was brought medially. Careful dissection was able to mobilize this mass medially off of the duodenum. The transverse colon was then divided using a linear 75 stapler. Mesentery of the transverse colon and ascending colon cecum and terminal ileum was then divided using a combination of 0 silk ties and the LigaSure device. Specimen was passed off at that point. The area was irrigated. No bleeding was seen. The antimesenteric portion of the staple line of both the ileum and transverse colon was excised using electrocautery. The linear 75 stapler was fired along the antimesenteric border creating a [id number] anastomosis antiperistaltic. The defect was then closed using a TX 60 device. The TX 60 stapler line was imb ricated using interrupted 3-0 GI silk sutures. A 3-0 GI silk crotch stitch was also placed. Again irrigation took place with no evidence of bleeding. No additional abnormalities in the bowel both small bowel and colon were identified. Palpation of the liver was normal. The midline fascia was then reapproximated using 2 separate double-stranded looped PDS sutures. The subcutaneous tissues were closed using 3-0 Vicryl sutures. The skin was closed using peter. Sterile dressings were applied. At the end of this procedure the sponge needle and ensure counts were correct. DISPOSITION: Stable to recovery room
[2024-04-10] MEDS: IPRATROPIUM-ALBUTEROL 3 ML NEB INHALATION PRN (17:55)
[2024-04-10] MEDS: ALBUTEROL NEBULIZED 2.5 MG/3 ML INHALATION SCH (20:06)
[2024-04-10] MEDS: KETOROLAC 15 MG/ML 1 ML VIAL IVP PRN (20:14)
[2024-04-10] MEDS: D5-0.45% NACL WITH KCL 20MEQ/L 1,000 ML IV SCH (23:51)
[2024-04-10] MEDS: HYDROmorphone 1 MG/ML 1 ML SYRINGE IVP PRN (23:52)
[2024-04-11] MEDS: ALVIMOPAN 12 MG CAPSULE PO SCH (08:52)
[2024-04-11 09:10] LABS: Basophils # (A) 0.01 X 10*3/uL (0.00-0.10); Basophils % (A) 0.2 %; Eosinophils # (A) 0 X 10*3/uL (0.04-0.35); Eosinophils % (A) 0 %; HCT 34.5 % (39.6-50.0); HGB 10.4 g/dL (13.0-17.0); Lymphocytes # (A) 0.53 X 10*3/uL (0.90-5.00); Lymphocytes % (A) 10.2 %; MCH 29.1 pg (27.0-32.0); MCHC 30.1 g/dL (32.0-37.0); MCV 96.6 FL (80.0-97.0); Mean Platelet Volume 10.1 FL (9.5-12.2); Monocytes # (A) 0.63 X 10*3/uL (0.20-1.00); Monocytes % (A) 12.2 %; NRBC Per 100 WBC 0 X 10*3/uL (0.00-0.01); Neutrophils # (A) 3.99 X 10*3/uL (1.80-7.70); Platelet Count 209 X 10*3/uL (140-440); RBC 3.57 X 10*6/uL (4.40-5.60); RDW 15.9 % (11.5-14.5); WBC 5.18 X 10*3/uL (4.50-10.00)
[2024-04-11 09:20] LABS: ALT 17 U/L (10-49); AST 35 U/L (14-35); Albumin 3.2 g/dL (3.8-4.9); Albumin/Globulin Ratio 1.78 Ratio (1.60-3.17); Alkaline Phosphatase 61 U/L (41-126); BUN/Creat Ratio 22.08 Ratio (12.00-20.00); Blood Urea Nitrogen 28.7 mg/dL (9.0-27.0); Calcium 7.6 mg/dL (8.7-10.3); Carbon Dioxide 21.8 mmol/L (21.6-31.8); Chloride 108 mmol/L (96-109); Globulin 1.8 g/dL (1.6-3.3); Glucose 125 mg/dL (70-110); Potassium 4.9 mmol/L (3.5-5.5); Sodium 140 mmol/L (135-145); Total Bilirubin 0.3 mg/dL (0.3-1.2)
--- NOTE | 2024-04-11 11:33 | P.PN ---
Subjective Progress Note Date: 04/11/24 CHIEF COMPLAINT: Bowel obstruction with obstructing right colon mass HISTORY OF PRESENT ILLNESS: Patient is postop day #1 status post exploratory laparotomy with right colectomy. Patient had confusion during the night pulled out his NG tube. He does have a bedside sitter. The platelets that were order ed in the OR were not given yesterday. They are being given this morning. Patient does complain of abdominal pain. No nausea or vomiting reported. No bowel activity. Afebrile. WBC 5.18 Hgb 12.8-10.4 platelets 209 sodium 140 potassium is 4.9 creatinine 1.3 PHYSICAL EXAM: VITAL SIGNS: Reviewed. GENERAL: Well-developed in no acute distress. ABDOMEN: Distended. Diffuse tenderness. Incisional dressing with small area of blood saturation distally noted NEUROLOGIC: awake. confused ASSESSMENT: 1. Bowel obstruction with obstructing mass of the right colon status post exploratory laparotomy with right colectomy 2. Daily EtOH use 3. Possible pneumonia PLAN: -Replace NG tube -Keep patient n.p.o. -Transfusing platelets -Continue to hold Plavix -Continue antibiotics -Continue CIWA protocol as needed for alcohol withdrawal -Continue IV fluids -Continue pain management -DVT prophylaxis subcu heparin Physician Studio Receptionist note has been reviewed by physician. Signing provider agrees with the documented findings, assessment, and plan of care. I have personally seen and examined the patient, reviewed the PHOTO MASK PATTERN GENERATOR /PAs history, exam and MDM and agree with the assessment and plan as written. Based on total visit time, I have performed more than 50% of the visit. As above: Patient was confused last night. He pulled his nasogastric tube out. Doing better this morning. Complaining of mild soreness. Some shadowing inferior aspect of incision dressing. Vitals noted. Labs noted. Continue gastric decompression. Keep NPO. Begin TPN. Objective - Vital Signs Vital signs: Vital Signs Temp 98.3 F 04/11/24 11:04 Pulse 94 04/11/24 11:04 Resp 18 04/11/24 11:04 BP 134/65 04/11/24 11:04 Pulse Ox 94 L 04/11/24 11:04 FiO2 Intake & Output 04/10/24 04/11/24 04/11/24 18:59 06:59 18:59 Intake Total 1250 550 0 Output Total 325 125 Balance 925 425 0 Weight 68.039 kg 68.039 kg Intake: IV 1250 550 Blood Product 0 Platelet Pheresis Pas 0 Psoralen Unit [id number] Output: Urine 250 125 Estimated Blood Loss 75 Other: Voiding Method Indwelling Catheter - Labs CBC & Chem 7: 04/11/24 05:39 04/11/24 05:39 Labs: Abnormal Lab Results - Last 24 Hours (Table) 04/11/24 04/11/24 Range/Units 05:39 05:39 RBC 3.57 L (4.40-5.60) X 10*6/uL Hgb 10.4 L (13.0-17.0) g/dL Hct 34.5 L (39.6-50.0) % MCHC 30.1 L (32.0-37.0) g/dL RDW 15.9 H (11.5-14.5) % Lymphocytes # 0.53 L (0.90-5.00) X 10*3/uL Eosinophils # 0 L (0.04-0.35) X 10*3/uL BUN 28.7 H (9.0-27.0) mg/dL Est GFR (CKD-EPI) 54 L (>=60) BUN/Creatinine Ratio 22.08 H (12.00-20.00) Ratio Glucose 125 H (70-110) mg/dL Calcium 7.6 L (8.7-10.3) mg/dL Total Protein 5.0 L (6.2-8.2) g/dL Albumin 3.2 L (3.8-4.9) g/dL
--- NOTE | 2024-04-11 11:47 | XR ---
EXAMINATION TYPE: XR chest 1V confirm line [facility] DATE OF EXAM: 04/11/2024 COMPARISON: 04/10/2024 HISTORY: 84-year-old male NG tube placement TECHNIQUE: Single frontal view of the chest is obtained. FINDINGS: NG tube satisfactory coursing below the diaphragm. Midline skin peter over the upper abd omen. Left PICC tip within the right atrium. Heart upper limits of normal in size. Focal bilateral lo wer lung opacities persist, right greater than left. Slightly increased now on the right. IMPRESSION: 1. Satisfactory NG tube. 2. Slight increasing bibasilar opacities/infiltrates, right greater than left.
[2024-04-11] MEDS: 1: MVI, ADULT NO.4 WITH VIT K 10 ML, THIAMINE 100 MG, FOLIC ACID 1 MG in SODIUM CHLORIDE IV SCH (14:14)
--- NOTE | 2024-04-11 14:49 | P.PN ---
Subjective Progress Note Date: 04/11/24 Patient complaining of abdominal distention and pain today. Pulled out his NG tube last night. Gen: In NAD, non-toxic HEENT: normocephalic, atraumatic, hearing acuity is intant, mucous membranes moist CVS: perfusing all extremities well, no pitting edema, Respiratory: symmetric chest expansion, no accessory muscle use, GI: soft, NTTP, ND, : no suprapubic tenderness, no CVA tenderness MSK/Derm: no rashes, cyanosis Neuro: CN II-XII intact, no motor weakness, Psych: cooperative, euthymic mood, judgment and insight is intact Hospital course: Patient is a 84-year-old male with a past medical history of osteoarthritis who is coming in with 5 days of worsening diffuse abdominal pain and also 2 days of no bowel movement. In the ED patient had a CT abdomen that showed airspace consolidations at the lung bases preferentially involving the right middle lobe consistent with multilobar pneumonia, dilated small bowel measuring up to 3.2 cm concerning for bowel obstruction with no definite transition point identified, wall thickening of the urinary bladder and diverticulosis without acute di verticulitis. Assessment and plan Small bowel obstruction N.p.o. IV fluids at 75 cc an hour Monitor electrolytes while patient is n.p.o. I reviewed CT abdomen pelvis General surgery consult Will switch IV Dilaudid to IV Toradol as opiates may exacerbate the obstruction Encourage patient to ambulate in the hallways CKD stage II Renal function at baseline Alcohol dependence CIWA protocol Patient not in withdrawal Incidental finding of right midlung consolidation and bilateral lower lung consolidation Patient denying any coughing fevers or chills I will empirically start the patient on IV Rocephin and azithromycin Will check procalcitonin and within normal limits will then discontinue the IV antibiotics DVT prophylaxis: Azithromycin Objective - Vital Signs Vital signs: Vital Signs Temp 98.4 F 04/11/24 13:55 Pulse 94 04/11/24 13:55 Resp 18 04/11/24 13:55 BP 129/68 04/11/24 13:55 Pulse Ox 96 04/11/24 13:55 FiO2 Intake & Output 04/10/24 04/11/24 04/11/24 18:59 06:59 18:59 Intake Total 1250 550 356 Output Total 325 125 Balance 925 425 356 Weight 68.039 kg 68.039 kg Intake: IV 1250 550 Blood Product 356 Platelet Pheresis Pas 356 Psoralen Unit [id number] Output: Urine 250 125 Estimated Blood Loss 75 Other: Voiding Method Indwelling Catheter - Labs CBC & Chem 7: 04/11/24 05:39 04/11/24 05:39 Labs: Abnormal Lab Results - Last 24 Hours (Table) 04/11/24 04/11/24 Range/Units 05:39 05:39 RBC 3.57 L (4.40-5.60) X 10*6/uL Hgb 10.4 L (13.0-17.0) g/dL Hct 34.5 L (39.6-50.0) % MCHC 30.1 L (32.0-37.0) g/dL RDW 15.9 H (11.5-14.5) % Lymphocytes # 0.53 L (0.90-5.00) X 10*3/uL Eosinophils # 0 L (0.04-0.35) X 10*3/uL BUN 28.7 H (9.0-27.0) mg/dL Est GFR (CKD-EPI) 54 L (>=60) BUN/Creatinine Ratio 22.08 H (12.00-20.00) Ratio Glucose 125 H (70-110) mg/dL Calcium 7.6 L (8.7-10.3) mg/dL Total Protein 5.0 L (6.2-8.2) g/dL Albumin 3.2 L (3.8-4.9) g/dL
[2024-04-11] MEDS: KETOROLAC 15 MG/ML 1 ML VIAL IVP SCH (15:48)
[2024-04-11] MEDS: ACETAMINOPHEN IV (For NPO) 1,000 MG in EMPTY BAG 1 BAG IVPB SCH (17:16)
[2024-04-11 17:27] VITALS: BMI 22.8
[2024-04-11] MEDS ORDERED: DEXTROSE 50% SYRINGE 50 ML IVP PRN ×2 (21:57)
[2024-04-11] MEDS: AMINO ACID 5% IV ONE (21:59)
[2024-04-11] MEDS: [UNRECOGNIZED DRUG - OTHER] IV ONE (21:59)
[2024-04-12 00:44] LABS: Glucose,Whole Blood 124 mg/dL (70-110)
[2024-04-12 05:37] LABS: Glucose,Whole Blood 138 mg/dL (70-110)
[2024-04-12 05:58] LABS: Ionized Calcium 4.7 mg/dL (4.5-5.3)
[2024-04-12 06:26] LABS: African American GFR (CKD) 70 (>60 ml/min/1.73 sqM); Anion Gap -1 mmol/L; Blood Urea Nitrogen 26 mg/dL (9-20); Calcium 7.7 mg/dL (8.4-10.2); Carbon Dioxide 28 mmol/L (22-30); Chloride 110 mmol/L (98-107); Glucose 136 mg/dL (74-99); Magnesium 2.5 mg/dL (1.6-2.3); Non-African American GFR(CKD) 61 (>60 ml/min/1.73 sqM); Phosphorus 2.1 mg/dL (2.5-4.5); Potassium 4.2 mmol/L (3.5-5.1); Sodium 137 mmol/L (137-145)
[2024-04-12] MEDS: INSULIN ASPART (NovoLOG) 100 UNIT/ML VIAL SQ SCH (06:59)
[2024-04-12 09:41] LABS: Basophils # (A) 0.01 X 10*3/uL (0.00-0.10); Basophils % (A) 0.2 %; Eosinophils # (A) 0.09 X 10*3/uL (0.04-0.35); Eosinophils % (A) 1.8 %; HCT 29.7 % (39.6-50.0); HGB 8.9 g/dL (13.0-17.0); Lymphocytes % (A) 11.7 %; MCH 29.8 pg (27.0-32.0); MCV 99.3 FL (80.0-97.0); Mean Platelet Volume 10.2 FL (9.5-12.2); Monocytes # (A) 0.56 X 10*3/uL (0.20-1.00); Monocytes % (A) 10.9 %; NRBC Per 100 WBC 0 X 10*3/uL (0.00-0.01); Neutrophils # (A) 3.86 X 10*3/uL (1.80-7.70); Platelet Count 192 X 10*3/uL (140-440); RBC 2.99 X 10*6/uL (4.40-5.60); RDW 15.8 % (11.5-14.5); WBC 5.14 X 10*3/uL (4.50-10.00)
[2024-04-12 10:08] LABS: Triglycerides 58.8 mg/dL (0.00-149.00)
--- NOTE | 2024-04-12 10:13 | P.PN ---
Subjective Progress Note Date: 04/12/24 No acute events overnight. Had NGT replaced yesterday. Gen: In NAD, non-toxic HEENT: normocephalic, atraumatic, hearing acuity is intant, mucous membranes moist CVS: perfusing all extremities well, no pitting edema, Respiratory: symmetric chest expansion, no accessory muscle use, GI: soft, NTTP, ND, : no suprapubic tenderness, no CVA tenderness MSK/Derm: no rashes, cyanosis Neuro: CN II-XII intact, no motor weakness, Psych: cooperative, euthymic mood, judgment and insight is intact Hospital course: Patient is a 84-year-old male with a past medical history of osteoarthritis who is coming in with 5 days of worsening diffuse abdominal pain and also 2 days of no bowel movement. In the ED patient had a CT abdomen that showed airspace consolidations at the lung bases preferentially involving the right middle lobe consistent with multilobar pneumonia, dilated small bowel measuring up to 3.2 cm concerning for bowel obstruction with no definite transition point identified, wall thickening of the urinary bladder and diverticulosis without acute diverticulitis. Assessment and plan Small bowel obstruction N.p.o. IV fluids at 75 cc an hour Monitor electrolytes while patient is n.p.o. I reviewed CT abdomen pelvis General surgery consult appreciated Encourage patient to ambulate in the hallways D/c toradol PRN now that pt is on gadiel toradol per surgery Pt started on TPN CKD stage II Renal function at baseline Alcohol dependence CIWA protocol Patient not in withdrawal Incidental finding of right midlung consolidation and bilateral lower lung consolidation Patient denying any coughing fevers or chills Pt was noted to have normal PC, will d/c abx DVT prophylaxis: heparin Objective - Vital Signs Vital signs: Vital Signs Temp 98.6 F 04/12/24 07:09 Pulse 76 04/12/24 09:26 Resp 18 04/12/24 07:09 BP 152/57 04/12/24 07:09 Pulse Ox 95 04/12/24 09:17 FiO2 Intake & Output 04/11/24 04/12/24 04/12/24 18:59 06:59 18:59 Intake Total 356 Output Total 400 Balance 356 -400 Weight 68.039 kg Intake: Blood Product 356 Platelet Pheresis Pas 356 Psoralen Unit [id number] Output: Urine 400 Other: Voiding Method Indwelling Catheter Indwelling Catheter - Labs CBC & Chem 7: 04/12/24 05:33 04/12/24 05:33 Labs: Abnormal Lab Results - Last 24 Hours (Table) 04/12/24 04/12/24 04/12/24 Range/Units 00:42 05:33 05:33 RBC 2.99 L (4.40-5.60) X 10*6/uL Hgb 8.9 L (13.0-17.0) g/dL Hct 29.7 L (39.6-50.0) % MCV 99.3 H (80.0-97.0) FL MCHC 30.0 L (32.0-37.0) g/dL RDW 15.8 H (11.5-14.5) % Lymphocytes # 0.60 L (0.90-5.00) X 10*3/uL Chloride 110 H (98-107) mmol/L BUN 26 H (9-20) mg/dL Glucose 136 H (74-99) mg/dL POC Glucose (mg/dL) 124 H (70-110) mg/dL Calcium 7.7 L (8.4-10.2) mg/dL Phosphorus 2.1 L (2.5-4.5) mg/dL Magnesium 2.5 H (1.6-2.3) mg/dL 04/12/24 Range/Units 05:36 RBC (4.40-5.60) X 10*6/uL Hgb (13.0-17.0) g/dL Hct (39.6-50.0) % MCV (80.0-97.0) FL MCHC (32.0-37.0) g/dL RDW (11.5-14.5) % Lymphocytes # (0.90-5.00) X 10*3/uL Chloride (98-107) mmol/L BUN (9-20) mg/dL Glucose (74-99) mg/dL POC Glucose (mg/dL) 138 H (70-110) mg/dL Calcium (8.4-10.2) mg/dL Phosphorus (2.5-4.5) mg/dL Magnesium (1.6-2.3) mg/dL
[2024-04-12] MEDS: FAT EMULSION 20% 250 ML in EMPTY BAG 1 BAG IV SCH (10:14)
[2024-04-12 13:06] LABS: Glucose,Whole Blood 180 mg/dL (70-110)
--- NOTE | 2024-04-12 13:15 | P.PN ---
Subjective Progress Note Date: 04/12/24 CHIEF COMPLAINT: Bowel obstruction and alcoholism HISTORY OF PRESENT ILLNESS: The patient is a 84-year-old male status post exploratory laparotomy for bowel obstruction due to colon mass as well as alco holism. He denies any moderate pain. Nasogastric tube present. He is lying in bed. Family, his daughter, is at bedside. ROS: No reports of nausea and vomiting. No fevers or chills. No new chest pain. No productive sputum PHYSICAL EXAM: VITAL SIGNS: Reviewed CONSTITUTIONAL: Well developed and in no acute distress. EYES: Conjuctivae without sclera icterus. Extraocular movements grossly intact. HEAD, EARS, NOSE, THROAT: Moist buccal mucosa. Head is atraumatic, normocephalic. Hears conversational speech. No nasal drainage. He is edentulous. Nasogastric tube present. RESPIRATORY: Non-labored respirations and equal bilateral excursions. CARDIOVASCULAR: Palpable 2+ radial pulses. ABDOMEN: Midline dressing with 3 cm dried sanguinous drainage of the silver dressing. No active bleeding noted. MUSCULOSKELETAL: No gross deformity of the lower extremities noted. No clubbing. No cyanosis. SKIN: Good skin turgor. Well perfused. NEUROLOGIC: Cranial nerves II through XII grossly intact. No focal or lateralizing signs. PSYCH: Appropriate affect. Alert and oriented to person. CLINICAL LABS: Reviewed. Hemoglobin down to 10.4-8.9, anemia. Platelets 219 down to 192. Creatinine 1.1 down from 1.3. ASSESSMENT: 1. 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 Chronic alcoholism 3. Chronic anemia PLAN: 1. Will monitor platelets and hemoglobin although declined to 1.5 g/dL and 24 hours noted. May need blood transfusion should hemoglobin drop below 7.0. 2. Will continue bowel rest with nasogastric tube decompression. 3. Ordering physical therapy occupational therapy for generalized wellbeing 4. [facility] protocol for alcoholism to be instituted and maintained. Objective - Vital Signs Vital signs: Vital Signs Temp 98.6 F 04/12/24 07:09 Pulse 75 04/12/24 12:11 Resp 18 04/12/24 07:09 BP 152/57 04/12/24 07:09 Pulse Ox 95 04/12/24 09:17 FiO2 Intake & Output 04/11/24 04/12/24 04/12/24 18:59 06:59 18:59 Intake Total 356 Output Total 400 Balance 356 -400 Weight 68.039 kg Intake: Blood Product 356 Platelet Pheresis Pas 356 Psoralen Unit [id number] Output: Urine 400 Other: Voiding Method Indwelling Catheter Indwelling Catheter Indwelling Catheter - Labs CBC & Chem 7: 04/12/24 05:33 04/12/24 05:33 Labs: Abnormal Lab Results - Last 24 Hours (Table) 04/12/24 04/12/24 04/12/24 Range/Units 00:42 05:33 05:33 RBC 2.99 L (4.40-5.60) X 10*6/uL Hgb 8.9 L (13.0-17.0) g/dL Hct 29.7 L (39.6-50.0) % MCV 99.3 H (80.0-97.0) FL MCHC 30.0 L (32.0-37.0) g/dL RDW 15.8 H (11.5-14.5) % Lymphocytes # 0.60 L (0.90-5.00) X 10*3/uL Chloride 110 H (98-107) mmol/L BUN 26 H (9-20) mg/dL Glucose 136 H (74-99) mg/dL POC Glucose (mg/dL) 124 H (70-110) mg/dL Calcium 7.7 L (8.4-10.2) mg/dL Phosphorus 2.1 L (2.5-4.5) mg/dL Magnesium 2.5 H (1.6-2.3) mg/dL 04/12/24 04/12/24 Range/Units 05:36 13:04 RBC (4.40-5.60) X 10*6/uL Hgb (13.0-17.0) g/dL Hct (39.6-50.0) % MCV (80.0-97.0) FL MCHC (32.0-37.0) g/dL RDW (11.5-14.5) % Lymphocytes # (0.90-5.00) X 10*3/uL Chloride (98-107) mmol/L BUN (9-20) mg/dL Glucose (74-99) mg/dL POC Glucose (mg/dL) 138 H 180 H (70-110) mg/dL Calcium (8.4-10.2) mg/dL Phosphorus (2.5-4.5) mg/dL Magnesium (1.6-2.3) mg/dL
[2024-04-12 16:50] LABS: Glucose,Whole Blood 160 mg/dL (70-110)
[2024-04-12 20:43] LABS: Glucose,Whole Blood 140 mg/dL (70-110)
[2024-04-12] MEDS: 1: MVI, ADULT NO.4 WITH VIT K 10 ML, TRACE (CONC-1ML/DOSE) 1 ML, SODIUM ACETATE 30 MEQ, IV SCH (23:14)
[2024-04-13 01:57] LABS: Glucose,Whole Blood 137 mg/dL (70-110)
[2024-04-13 06:00] LABS: Glucose,Whole Blood 121 mg/dL (70-110)
[2024-04-13 06:51] LABS: ALT 15 U/L (4-49); AST 31 U/L (17-59); African American GFR (CKD) >90 (>60 ml/min/1.73 sqM); Albumin 2.1 g/dL (3.5-5.0); Alkaline Phosphatase 49 U/L (38-126); Anion Gap 1 mmol/L; Blood Urea Nitrogen 22 mg/dL (9-20); Calcium 7.5 mg/dL (8.4-10.2); Carbon Dioxide 26 mmol/L (22-30); Chloride 111 mmol/L (98-107); Globulin 2.1 g/dL; Glucose 122 mg/dL (74-99); Magnesium 2.3 mg/dL (1.6-2.3); Non-African American GFR(CKD) 79 (>60 ml/min/1.73 sqM); Phosphorus 2.1 mg/dL (2.5-4.5); Potassium 3.9 mmol/L (3.5-5.1); Sodium 138 mmol/L (137-145); Total Bilirubin 0.2 mg/dL (0.2-1.3); Total Protein 4.2 g/dL (6.3-8.2)
[2024-04-13] MEDS: 1: MVI, ADULT NO.4 WITH VIT K 10 ML, TRACE (CONC-1ML/DOSE) 1 ML, SODIUM ACETATE 30 MEQ, IV SCH (08:09)
--- NOTE | 2024-04-13 09:18 | P.PN ---
Subjective Progress Note Date: 04/13/24 No acute events overnight. Gen: In NAD, non-toxic HEENT: normocephalic, atraumatic, hearing acuity is intant, mucous membranes moist CVS: perfusing all extremities well, no pitting edema, Respiratory: symmetric chest expansion, no accessory muscle use, GI: soft, NTTP, ND, : no suprapubic tenderness, no CVA tenderness MSK/Derm: no rashes, cyanosis Neuro: CN II-XII intact, no motor weakness, Psych: cooperative, euthymic mood, judgment and insight is intact Hospital course: Patient is a 84-year-old male with a past medical history of osteoarthritis who is coming in with 5 days of worsening diffuse abdominal pain and also 2 days of no bowel movement. In the ED patient had a CT abdomen that showed airspace consolidations at the lung bases preferentially involving the right middle lobe consistent with multilobar pneumonia, dilated small bowel measuring up to 3.2 cm concerning for bowel obstruction with no definite transition point identified, wall thickening of the urinary bladder and diverticulosis without acute diverticulitis. Assessment and plan Small bowel obstruction N.p.o. IV fluids at 75 cc an hour Monitor electrolytes while patient is n.p.o. General surgery consult appreciated Encourage patient to ambulate in the hallways D/c toradol PRN now that pt is on gadiel toradol per surgery Pt is on TPN CKD stage II Renal function at baseline Alcohol dependence CIWA protocol Patient not in withdrawal Incidental finding of right midlung consolidation and bilateral lower lung consolidation Patient denying any coughing fevers or chills Pt was noted to have normal PC, will d/c abx DVT prophylaxis: heparin Objective - Vital Signs Vital signs: Vital Signs Temp 98.4 F 04/13/24 08:00 Pulse 78 04/13/24 09:15 Resp 18 04/13/24 09:15 BP 185/60 04/13/24 08:00 Pulse Ox 100 04/13/24 09:15 FiO2 Intake & Output 04/12/24 04/13/24 04/13/24 18:59 06:59 18:59 Output Total 350 Balance -350 Output: Urine 350 Other: Voiding Method Indwelling Catheter Indwelling Catheter # Voids 1 - Labs CBC & Chem 7: 04/12/24 05:33 04/13/24 06:12 Labs: Abnormal Lab Results - Last 24 Hours (Table) 04/12/24 04/12/24 04/12/24 Range/Units 05:33 13:04 16:49 RBC 2.99 L (4.40-5.60) X 10*6/uL Hgb 8.9 L (13.0-17.0) g/dL Hct 29.7 L (39.6-50.0) % MCV 99.3 H (80.0-97.0) FL MCHC 30.0 L (32.0-37.0) g/dL RDW 15.8 H (11.5-14.5) % Lymphocytes # 0.60 L (0.90-5.00) X 10*3/uL Chloride (98-107) mmol/L BUN (9-20) mg/dL Glucose (74-99) mg/dL POC Glucose (mg/dL) 180 H 160 H (70-110) mg/dL Calcium (8.4-10.2) mg/dL Phosphorus (2.5-4.5) mg/dL Total Protein (6.3-8.2) g/dL Albumin (3.5-5.0) g/dL 04/12/24 04/13/24 04/13/24 Range/Units 20:42 01:56 05:58 RBC (4.40-5.60) X 10*6/uL Hgb (13.0-17.0) g/dL Hct (39.6-50.0) % MCV (80.0-97.0) FL MCHC (32.0-37.0) g/dL RDW (11.5-14.5) % Lymphocytes # (0.90-5.00) X 10*3/uL Chloride (98-107) mmol/L BUN (9-20) mg/dL Glucose (74-99) mg/dL POC Glucose (mg/dL) 140 H 137 H 121 H (70-110) mg/dL Calcium (8.4-10.2) mg/dL Phosphorus (2.5-4.5) mg/dL Total Protein (6.3-8.2) g/dL Albumin (3.5-5.0) g/dL 04/13/24 Range/Units 06:12 RBC (4.40-5.60) X 10*6/uL Hgb (13.0-17.0) g/dL Hct (39.6-50.0) % MCV (80.0-97.0) FL MCHC (32.0-37.0) g/dL RDW (11.5-14.5) % Lymphocytes # (0.90-5.00) X 10*3/uL Chloride 111 H (98-107) mmol/L BUN 22 H (9-20) mg/dL Glucose 122 H (74-99) mg/dL POC Glucose (mg/dL) (70-110) mg/dL Calcium 7.5 L (8.4-10.2) mg/dL Phosphorus 2.1 L (2.5-4.5) mg/dL Total Protein 4.2 L (6.3-8.2) g/dL Albumin 2.1 L (3.5-5.0) g/dL
[2024-04-13 10:21] LABS: Basophils # (A) 0.02 X 10*3/uL (0.00-0.10); Basophils % (A) 0.3 %; Eosinophils # (A) 0.42 X 10*3/uL (0.04-0.35); Eosinophils % (A) 6.4 %; HCT 29.1 % (39.6-50.0); HGB 8.8 g/dL (13.0-17.0); Lymphocytes # (A) 0.79 X 10*3/uL (0.90-5.00); Lymphocytes % (A) 12.1 %; MCH 29.6 pg (27.0-32.0); MCHC 30.2 g/dL (32.0-37.0); Mean Platelet Volume 10.8 FL (9.5-12.2); Monocytes # (A) 0.53 X 10*3/uL (0.20-1.00); Monocytes % (A) 8.1 %; NRBC Per 100 WBC 0 X 10*3/uL (0.00-0.01); Neutrophils # (A) 4.75 X 10*3/uL (1.80-7.70); Neutrophils % (A) 72.6 %; Platelet Count 203 X 10*3/uL (140-440); RBC 2.97 X 10*6/uL (4.40-5.60); RDW 15.5 % (11.5-14.5); WBC 6.54 X 10*3/uL (4.50-10.00)
[2024-04-13 11:55] LABS: Glucose,Whole Blood 156 mg/dL (70-110)
--- NOTE | 2024-04-13 14:45 | P.PN ---
Subjective Progress Note Date: 04/13/24 CHIEF COMPLAINT: Bowel obstruction and alcoholism HISTORY OF PRESENT ILLNESS: The patient is a 84-year-old male status post exploratory laparotomy for bowel obstruction due to colon mass as well as alco holism. His is at bedside. He is stable. No new issues overnight. He reports no increased abdominal pain. Abdomen is sore. Nasogastric tube with bilious content. ROS: No reports of nausea and vomiting. No fevers or chills. No new chest pain. PHYSICAL EXAM: VITAL SIGNS: Reviewed CONSTITUTIONAL: Well developed and in no acute distress. EYES: Conjuctivae without sclera icterus. Extraocular movements grossly intact. HEAD, EARS, NOSE, THROAT: Dry buccal mucosa. Head is atraumatic, normocephalic. Hears conversational speech. No nasal drainage. Nasogastric tube present and bilious. RESPIRATORY: Non-labored respirations and equal bilateral excursions. CARDIOVASCULAR: Palpable 2+ radial pulses. ABDOMEN: No active bleeding along midline incision. No diffuse peritonitis. MUSCULOSKELETAL: No gross deformity of the lower extremities noted. No clubbing. No cyanosis. SKIN: Good skin turgor. Well perfused. NEUROLOGIC: Cranial nerves II through XII grossly intact. No focal or lateralizing signs. PSYCH: Appropriate affect. Alert and oriented to person. CLINICAL LABS: Reviewed. Hemoglobin stable 8.9-8.8 in 24 to 48 hours. ASSESSMENT: 1. 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 Chronic alcoholism 3. Chronic anemia PLAN: 1. At this time, pending patient passage of flatus which is to be expected for bowel function to resume in 3 to 5 days after major surgery. 2. Otherwise, pain stable. Objective - Vital Signs Vital signs: Vital Signs Temp 98.4 F 04/13/24 08:00 Pulse 72 04/13/24 12:32 Resp 18 04/13/24 12:32 BP 185/60 04/13/24 08:00 Pulse Ox 100 04/13/24 09:15 FiO2 Intake & Output 04/12/24 04/13/24 04/13/24 18:59 06:59 18:59 Output Total 350 Balance -350 Output: Urine 350 Other: Voiding Method Indwelling Catheter Indwelling Catheter Indwelling Catheter # Voids 1 - Labs CBC & Chem 7: 04/13/24 06:12 04/13/24 06:12 Labs: Abnormal Lab Results - Last 24 Hours (Table) 04/12/24 04/12/24 04/13/24 Range/Units 16:49 20:42 01:56 RBC (4.40-5.60) X 10*6/uL Hgb (13.0-17.0) g/dL Hct (39.6-50.0) % MCV (80.0-97.0) FL MCHC (32.0-37.0) g/dL RDW (11.5-14.5) % Lymphocytes # (0.90-5.00) X 10*3/uL Eosinophils # (0.04-0.35) X 10*3/uL Chloride (98-107) mmol/L BUN (9-20) mg/dL Glucose (74-99) mg/dL POC Glucose (mg/dL) 160 H 140 H 137 H (70-110) mg/dL Calcium (8.4-10.2) mg/dL Phosphorus (2.5-4.5) mg/dL Total Protein (6.3-8.2) g/dL Albumin (3.5-5.0) g/dL 04/13/24 04/13/24 04/13/24 Range/Units 05:58 06:12 06:12 RBC 2.97 L (4.40-5.60) X 10*6/uL Hgb 8.8 L (13.0-17.0) g/dL Hct 29.1 L (39.6-50.0) % MCV 98.0 H (80.0-97.0) FL MCHC 30.2 L (32.0-37.0) g/dL RDW 15.5 H (11.5-14.5) % Lymphocytes # 0.79 L (0.90-5.00) X 10*3/uL Eosinophils # 0.42 H (0.04-0.35) X 10*3/uL Chloride 111 H (98-107) mmol/L BUN 22 H (9-20) mg/dL Glucose 122 H (74-99) mg/dL POC Glucose (mg/dL) 121 H (70-110) mg/dL Calcium 7.5 L (8.4-10.2) mg/dL Phosphorus 2.1 L (2.5-4.5) mg/dL Total Protein 4.2 L (6.3-8.2) g/dL Albumin 2.1 L (3.5-5.0) g/dL 04/13/24 Range/Units 11:51 RBC (4.40-5.60) X 10*6/uL Hgb (13.0-17.0) g/dL Hct (39.6-50.0) % MCV (80.0-97.0) FL MCHC (32.0-37.0) g/dL RDW (11.5-14.5) % Lymphocytes # (0.90-5.00) X 10*3/uL Eosinophils # (0.04-0.35) X 10*3/uL Chloride (98-107) mmol/L BUN (9-20) mg/dL Glucose (74-99) mg/dL POC Glucose (mg/dL) 156 H (70-110) mg/dL Calcium (8.4-10.2) mg/dL Phosphorus (2.5-4.5) mg/dL Total Protein (6.3-8.2) g/dL Albumin (3.5-5.0) g/dL
[2024-04-13 16:46] LABS: Glucose,Whole Blood 129 mg/dL (70-110)
[2024-04-13] MEDS: IPRATROPIUM-ALBUTEROL 3 ML NEB INHALATION PRN (16:57)
--- NOTE | 2024-04-13 18:15 | XR ---
EXAMINATION TYPE: XR chest 1V portable DATE OF EXAM: 04/13/2024 6:10 PM CLINICAL INDICATION: Male, 84 years old with history of dyspnea; H COMPARISON: Chest radiographs from 04/11/2024. TECHNIQUE: XR chest 1V portable Frontal view of the chest. FINDINGS: Lungs/Pleura: Right perihilar airspace consolidation. No evidence of focal consolidation or pneumotho rax. Blunting of the costophrenic angles is present. Pulmonary vascularity: Unremarkable. Heart/mediastinum: Cardiomediastinal silhouette is prominent in size. Musculoskeletal: No acute osseous pathology. Other findings: None Lines/Tubes: Nasogastric tube with its distal tip and side-port projecting under the diaphragm. Left internal jugular central venous catheter with distal tip at the cavoatrial junction. IMPRESSION: 1. Nasogastric tube and left central venous catheter in appropriate position. 2. Right perihilar airspace consolidation. 3. Bilateral pleural effusions
[2024-04-13 20:54] LABS: Glucose,Whole Blood 136 mg/dL (70-110)
[2024-04-14 01:43] LABS: Glucose,Whole Blood 138 mg/dL (70-110)
--- NOTE | 2024-04-14 03:35 | XR ---
EXAM: XR Chest, 1 View CLINICAL HISTORY: ITS.REASON XR Reason: Shortness of breath, wheezing. TECHNIQUE: Frontal view of the chest. COMPARISON: CXR April 13, 2024. FINDINGS: Lungs: Lower lobe consolidations, concerning for multilobar pneumonia. Small bilateral pleural effusions. Pleural space: See above. Heart: Unremarkable. No cardiomegaly. Mediastinum: Unremarkable. Normal mediastinal contour. Bones/joints: Unremarkable. No acute fracture. Tubes, lines and devices: Feeding tube terminates in the stomach. LEFT PICC line terminates in the SVC. Upper abdomen: Dilated small bowel measuring up to approximately 4.3 cm, concerning for bowel obstruction. IMPRESSION: Lower lobe consolidations, concerning for multilobar pneumonia. Small bilateral pleural effusions.
[2024-04-14 05:44] LABS: ALT 17 U/L (4-49); AST 29 U/L (17-59); African American GFR (CKD) >90 (>60 ml/min/1.73 sqM); Albumin 2.6 g/dL (3.5-5.0); Alkaline Phosphatase 62 U/L (38-126); Anion Gap 6 mmol/L; Blood Urea Nitrogen 18 mg/dL (9-20); Calcium 8.2 mg/dL (8.4-10.2); Carbon Dioxide 23 mmol/L (22-30); Chloride 107 mmol/L (98-107); Globulin 2.5 g/dL; Glucose 114 mg/dL (74-99); Non-African American GFR(CKD) 86 (>60 ml/min/1.73 sqM); Phosphorus 2.3 mg/dL (2.5-4.5); Potassium 4.4 mmol/L (3.5-5.1); Sodium 136 mmol/L (137-145); Total Bilirubin 0.4 mg/dL (0.2-1.3); Total Protein 5.1 g/dL (6.3-8.2)
[2024-04-14 06:00] LABS: Glucose,Whole Blood 139 mg/dL (70-110)
[2024-04-14 09:45] LABS: Basophils # (A) 0.02 X 10*3/uL (0.00-0.10); Basophils % (A) 0.2 %; Eosinophils # (A) 0.37 X 10*3/uL (0.04-0.35); Eosinophils % (A) 4.5 %; HCT 36.6 % (39.6-50.0); HGB 10.8 g/dL (13.0-17.0); Lymphocytes # (A) 0.99 X 10*3/uL (0.90-5.00); Lymphocytes % (A) 12.1 %; MCH 29.2 pg (27.0-32.0); MCHC 29.5 g/dL (32.0-37.0); MCV 98.9 FL (80.0-97.0); Mean Platelet Volume 10.6 FL (9.5-12.2); Monocytes # (A) 0.68 X 10*3/uL (0.20-1.00); Monocytes % (A) 8.3 %; NRBC Per 100 WBC 0 X 10*3/uL (0.00-0.01); Neutrophils # (A) 6.03 X 10*3/uL (1.80-7.70); Neutrophils % (A) 74.2 %; Platelet Count 255 X 10*3/uL (140-440); RDW 15.3 % (11.5-14.5); WBC 8.15 X 10*3/uL (4.50-10.00)
[2024-04-14] MEDS: 1: MVI, ADULT NO.4 WITH VIT K 10 ML, TRACE (CONC-1ML/DOSE) 1 ML, SODIUM ACETATE 30 MEQ, IV SCH (10:29)
--- NOTE | 2024-04-14 10:38 | P.PN ---
Subjective Progress Note Date: 04/14/24 No acute events overnight. Still having some trouble breathing, and repeat CXR shows increased volume. Gen: In NAD, non-toxic HEENT: normocephalic, atraumatic, hearing acuity is intant, mucous membranes moist CVS: perfusing all extremities well, no pitting edema, Respiratory: symmetric chest expansion, no accessory muscle use, wheezing (end- expiratory) GI: soft, NTTP, ND, : no suprapubic tenderness, no CVA tenderness MSK/Derm: no rashes, cyanosis Neuro: CN II-XII intact, no motor weakness, Psych: cooperative, euthymic mood, judgment and insight is intact Hospital course: Patient is a 84-year-old male with a past medical history of osteoarthritis who is coming in with 5 days of worsening diffuse abdominal pain and also 2 days of no bowel movement. In the ED patient had a CT abdomen that showed airspace consolidations at the lung bases preferentially involving the right middle lobe consistent with multilobar pneumonia, dilated small bowel measuring up to 3.2 cm concerning for bowel obstruction with no definite transition point identified, wall thickening of the urinary bladder and diverticulosis without acute diverticulitis. Assessment and plan Small bowel obstruction N.p.o. IV fluids at 75 cc an hour, will d/c Monitor electrolytes while patient is n.p.o. General surgery consult appreciated Encourage patient to ambulate in the hallways D/c toradol PRN now that pt is on gadiel toradol per surgery Pt is on TPN CKD stage II Renal function at baseline Alcohol dependence CIWA protocol Patient not in withdrawal Incidental finding of right midlung consolidation and bilateral lower lung consolidation Patient denying any coughing fevers or chills Pt was noted to have normal PC, will d/c abx Increase patient's duonebs to q4h which is what he does at home DVT prophylaxis: heparin Objective - Vital Signs Vital signs: Vital Signs Temp 97.8 F 04/14/24 07:20 Pulse 83 04/14/24 07:20 Resp 17 04/14/24 07:20 BP 113/71 04/14/24 07:20 Pulse Ox 99 04/14/24 07:20 FiO2 Intake & Output 04/13/24 04/14/24 04/14/24 18:59 06:59 18:59 Output Total 425 Balance -425 Output: Urine 425 Other: Voiding Method Indwelling Catheter Indwelling Catheter - Labs CBC & Chem 7: 04/14/24 04:10 04/14/24 04:10 Labs: Abnormal Lab Results - Last 24 Hours (Table) 04/13/24 04/13/24 04/13/24 Range/Units 11:51 16:45 20:52 RBC (4.40-5.60) X 10*6/uL Hgb (13.0-17.0) g/dL Hct (39.6-50.0) % MCV (80.0-97.0) FL MCHC (32.0-37.0) g/dL RDW (11.5-14.5) % Immature Gran # (0.00-0.04) X 10*3/uL Eosinophils # (0.04-0.35) X 10*3/uL Sodium (137-145) mmol/L Glucose (74-99) mg/dL POC Glucose (mg/dL) 156 H 129 H 136 H (70-110) mg/dL Calcium (8.4-10.2) mg/dL Phosphorus (2.5-4.5) mg/dL Total Protein (6.3-8.2) g/dL Albumin (3.5-5.0) g/dL 04/14/24 04/14/24 04/14/24 Range/Units 01:42 04:10 04:10 RBC 3.70 L (4.40-5.60) X 10*6/uL Hgb 10.8 L (13.0-17.0) g/dL Hct 36.6 L (39.6-50.0) % MCV 98.9 H (80.0-97.0) FL MCHC 29.5 L (32.0-37.0) g/dL RDW 15.3 H (11.5-14.5) % Immature Gran # 0.06 H (0.00-0.04) X 10*3/uL Eosinophils # 0.37 H (0.04-0.35) X 10*3/uL Sodium 136 L (137-145) mmol/L Glucose 114 H (74-99) mg/dL POC Glucose (mg/dL) 138 H (70-110) mg/dL Calcium 8.2 L (8.4-10.2) mg/dL Phosphorus 2.3 L (2.5-4.5) mg/dL Total Protein 5.1 L (6.3-8.2) g/dL Albumin 2.6 L (3.5-5.0) g/dL 04/14/24 Range/Units 05:59 RBC (4.40-5.60) X 10*6/uL Hgb (13.0-17.0) g/dL Hct (39.6-50.0) % MCV (80.0-97.0) FL MCHC (32.0-37.0) g/dL RDW (11.5-14.5) % Immature Gran # (0.00-0.04) X 10*3/uL Eosinophils # (0.04-0.35) X 10*3/uL Sodium (137-145) mmol/L Glucose (74-99) mg/dL POC Glucose (mg/dL) 139 H (70-110) mg/dL Calcium (8.4-10.2) mg/dL Phosphorus (2.5-4.5) mg/dL Total Protein (6.3-8.2) g/dL Albumin (3.5-5.0) g/dL
[2024-04-14] MEDS: ALBUTEROL NEBULIZED 2.5 MG/3 ML INHALATION SCH (11:06)
[2024-04-14 11:42] LABS: Glucose,Whole Blood 126 mg/dL (70-110)
--- NOTE | 2024-04-14 11:43 | P.PN ---
Subjective Progress Note Date: 04/14/24 CHIEF COMPLAINT: Bowel obstruction with obstructing right colon mass HISTORY OF PRESENT ILLNESS: Patient is postop day #4 status post exploratory laparotomy with right colectomy. Patient sitting up at bedside chair. Pain is controlled. No bowel activity. Patient has been short of breath. Afebrile. WBC 8.15 Hgb 10.8 platelets 255 PHYSICAL EXAM: VITAL SIGNS: Reviewed. GENERAL: no acute distress. ABDOMEN: Distended. Tender at incision site. Incisional dressing with dried blood noted distally. ASSESSMENT: 1. Bowel obstruction with obstructing mass of the right colon status post exploratory laparotomy with right colectomy 2. Daily EtOH use 3. Possible pneumonia PLAN: -Follow-up on pathology results -Discontinue Bullock catheter -Change Optifoam dressing -Continue NG tube for decompression -Keep patient n.p.o. -Continue TPN for nutrition support -Continue to hold Plavix -Continue antibiotics -Continue pain management -DVT prophylaxis subcu heparin Physician Tool Worker note has been reviewed by physician. Signing provider agrees with the documented findings, assessment, and plan of care. I have personally seen and examined the patient, reviewed the PORTRAIT STUDIO PHOTOGRAPHER /PAs history, exam and MDM and agree with the assessment and plan as written. Based on total visit time, I have performed more than 50% of the visit. As above: Patient seems to be doing fairly well. Remains distended however. NG output remains low. Keep NG tube for now. Remove Bullock catheter. Increase activity. Decrease overall IV fluid volume. Objective - Vital Signs Vital signs: Vital Signs Temp 97.8 F 04/14/24 07:20 Pulse 90 04/14/24 11:16 Resp 17 04/14/24 07:20 BP 113/71 04/14/24 07:20 Pulse Ox 93 L 04/14/24 11:10 FiO2 Intake & Output 04/13/24 04/14/24 04/14/24 18:59 06:59 18:59 Output Total 425 Balance -425 Output: Urine 425 Other: Voiding Method Indwelling Catheter Indwelling Catheter Indwelling Catheter - Labs CBC & Chem 7: 04/14/24 04:10 04/14/24 04:10 Labs: Abnormal Lab Results - Last 24 Hours (Table) 04/13/24 04/13/24 04/13/24 Range/Units 11:51 16:45 20:52 RBC (4.40-5.60) X 10*6/uL Hgb (13.0-17.0) g/dL Hct (39.6-50.0) % MCV (80.0-97.0) FL MCHC (32.0-37.0) g/dL RDW (11.5-14.5) % Immature Gran # (0.00-0.04) X 10*3/uL Eosinophils # (0.04-0.35) X 10*3/uL Sodium (137-145) mmol/L Glucose (74-99) mg/dL POC Glucose (mg/dL) 156 H 129 H 136 H (70-110) mg/dL Calcium (8.4-10.2) mg/dL Phosphorus (2.5-4.5) mg/dL Total Protein (6.3-8.2) g/dL Albumin (3.5-5.0) g/dL 04/14/24 04/14/24 04/14/24 Range/Units 01:42 04:10 04:10 RBC 3.70 L (4.40-5.60) X 10*6/uL Hgb 10.8 L (13.0-17.0) g/dL Hct 36.6 L (39.6-50.0) % MCV 98.9 H (80.0-97.0) FL MCHC 29.5 L (32.0-37.0) g/dL RDW 15.3 H (11.5-14.5) % Immature Gran # 0.06 H (0.00-0.04) X 10*3/uL Eosinophils # 0.37 H (0.04-0.35) X 10*3/uL Sodium 136 L (137-145) mmol/L Glucose 114 H (74-99) mg/dL POC Glucose (mg/dL) 138 H (70-110) mg/dL Calcium 8.2 L (8.4-10.2) mg/dL Phosphorus 2.3 L (2.5-4.5) mg/dL Total Protein 5.1 L (6.3-8.2) g/dL Albumin 2.6 L (3.5-5.0) g/dL 04/14/24 Range/Units 05:59 RBC (4.40-5.60) X 10*6/uL Hgb (13.0-17.0) g/dL Hct (39.6-50.0) % MCV (80.0-97.0) FL MCHC (32.0-37.0) g/dL RDW (11.5-14.5) % Immature Gran # (0.00-0.04) X 10*3/uL Eosinophils # (0.04-0.35) X 10*3/uL Sodium (137-145) mmol/L Glucose (74-99) mg/dL POC Glucose (mg/dL) 139 H (70-110) mg/dL Calcium (8.4-10.2) mg/dL Phosphorus (2.5-4.5) mg/dL Total Protein (6.3-8.2) g/dL Albumin (3.5-5.0) g/dL
--- NOTE | 2024-04-14 16:28 | XR ---
EXAMINATION TYPE: XR chest 1V DATE OF EXAM: 04/14/2024 COMPARISON: 04/24/2024 HISTORY: NG tube placement TECHNIQUE: Single frontal view of the chest is obtained. FINDINGS: The partially consolidated and interstitial infiltrate in the right lung base with probable small eff usion is stable. The infiltrate in the left lung base is cleared. There is no pneumothorax. There is a left-sided PICC line in the SVC/RA junction. Heart and pulmonary vasculature are normal. ET tube is in the proximal esophagus. There are skin peter in the midline abdomen indicating recent abdominal surgery IMPRESSION: 1. No change in the right lower lobe infiltrate and small effusion. 2. Resolution of the left lung infiltrate. 3 NG tube in the proximal esophagus
[2024-04-14 16:29] LABS: Glucose,Whole Blood 140 mg/dL (70-110)
--- NOTE | 2024-04-14 17:37 | XR ---
EXAMINATION TYPE: XR chest 1V portable DATE OF EXAM: 04/14/2024 COMPARISON: 04/14/2024 INDICATION: NG tube placement TECHNIQUE: Single frontal view of the chest is obtained. FINDINGS: The heart size is normal. The pulmonary vasculature is normal. Mild right lower lobe infiltrate is present. Minimal lateral pleural effusions present. PICC line is present with the tip in the proximal right atrium. Nasogastric tube is in place with the tip in the left upper quadrant of the abdomen. Surgical skin peter are over the abdomen. Some prom inent air-filled small bowel loops are noted. IMPRESSION: 1. Mild right lower lobe infiltrate stable from comparison. 2. Placement of an NG tube with tip in the left upper quadrant of the abdomen
[2024-04-14 21:05] LABS: Glucose,Whole Blood 152 mg/dL (70-110)
[2024-04-15 01:57] LABS: Glucose,Whole Blood 161 mg/dL (70-110)
[2024-04-15 05:39] LABS: Glucose,Whole Blood 152 mg/dL (70-110)
[2024-04-15 06:11] LABS: Carbon Dioxide 27 mmol/L (22-30); Chloride 104 mmol/L (98-107); Glucose 145 mg/dL (74-99); Potassium 4.6 mmol/L (3.5-5.1); Sodium 135 mmol/L (137-145)
[2024-04-15 06:12] LABS: African American GFR (CKD) >90 (>60 ml/min/1.73 sqM); Anion Gap 4 mmol/L; Blood Urea Nitrogen 19 mg/dL (9-20); Calcium 8.6 mg/dL (8.4-10.2); Magnesium 1.7 mg/dL (1.6-2.3); Non-African American GFR(CKD) 84 (>60 ml/min/1.73 sqM); Phosphorus 2.7 mg/dL (2.5-4.5)
--- NOTE | 2024-04-15 08:39 | XR ---
EXAMINATION TYPE: XR abdomen 1V DATE OF EXAM: 04/15/2024 COMPARISON: NONE HISTORY: Pain TECHNIQUE: Single supine KUB image of the abdomen is obtained FINDINGS: Small bowel demonstrates no evidence for dilatation or air fluid levels. NG tube seen coursing into the stomach. Upper abdominal skin peter are noted. Distended loops of small bowel seen. Gas and fecal material is seen in non-distended colon. No convincing evidence for pneumoperitoneum. No unusual calcifications. The lung bases are clear. The osseous structures are intact. IMPRESSION: 1. NG tube as noted.
--- NOTE | 2024-04-15 10:52 | P.PN ---
Subjective Progress Note Date: 04/15/24 CHIEF COMPLAINT: Bowel obstruction with obstructing right colon mass HISTORY OF PRESENT ILLNESS: Patient is postop day #5 status post exploratory laparotomy with right colectomy. Patient reports his pain is controlled. He reports some shortness of breath. He has pain in the abdomen with coughing. NG tube output 100 mL bilious output. Denies any flatus. He is urinating without difficulty. Bullock catheter discontinued yesterday. Afebrile. Magnesium 1.7 and being replaced PHYSICAL EXAM: VITAL SIGNS: Reviewed. GENERAL: no acute distress. ABDOMEN: Mildly distended. Tenderness at incision site. Incisional dressing clean dry and intact ASSESSMENT: 1. Bowel obstruction with obstructing mass of the right colon status post exploratory laparotomy with right colectomy 2. Daily EtOH use 3. Possible pneumonia PLAN: -Follow-up on pathology results -Continue NG tube for decompression -Keep patient n.p.o. -Continue TPN for nutrition support -IV fluids discontinued -Continue to hold Plavix -Continue antibiotics -Continue pain management -Increase activity level -DVT prophylaxis subcu heparin Physician Deputy County Clerk note has been reviewed by physician. Signing provider agrees with the documented findings, assessment, and plan of care. I have personally seen and examined the patient, reviewed the MUSEUM EXHIBIT DESIGNER /PAs history, exam and MDM and agree with the assessment and plan as written. Based on total visit time, I have performed more than 50% of the visit. As above: Patient doing better today. Passing flatus. Will remove nasogastric tube. Ice chips and popsicles today. Await path. Objective - Vital Signs Vital signs: Vital Signs Temp 98.5 F 04/15/24 00:48 Pulse 78 04/15/24 09:14 Resp 18 04/15/24 00:48 BP 147/68 04/15/24 00:48 Pulse Ox 96 04/15/24 09:08 FiO2 Intake & Output 04/14/24 04/15/24 04/15/24 18:59 06:59 18:59 Output Total 325 Balance -325 Weight 68.039 kg Output: Urine 325 Other: Voiding Method Indwelling Catheter Urinal Urinal - Labs CBC & Chem 7: 04/14/24 04:10 04/15/24 04:30 Labs: Abnormal Lab Results - Last 24 Hours (Table) 04/14/24 04/14/24 04/14/24 Range/Units 11:40 16:28 21:04 Sodium (137-145) mmol/L Glucose (74-99) mg/dL POC Glucose (mg/dL) 126 H 140 H 152 H (70-110) mg/dL 04/15/24 04/15/24 04/15/24 Range/Units 01:56 04:30 05:36 Sodium 135 L (137-145) mmol/L Glucose 145 H (74-99) mg/dL POC Glucose (mg/dL) 161 H 152 H (70-110) mg/dL
[2024-04-15] MEDS: MAGNESIUM SULFATE-D5W PMX 1 GM in DEXTROSE/WATER 1 100ML.BAG IVPB ONE (11:11)
--- NOTE | 2024-04-15 11:28 | P.PN ---
Subjective Progress Note Date: 04/15/24 Pt reports passing some flatus, but no BM. NGT had to be readjusted overnight. Gen: In NAD, non-toxic HEENT: normocephalic, atraumatic, hearing acuity is intant, mucous membranes moist CVS: perfusing all extremities well, no pitting edema, Respiratory: symmetric chest expansion, no accessory muscle use, wheezing (end- expiratory) GI: soft, NTTP, ND, : no suprapubic tenderness, no CVA tenderness MSK/Derm: no rashes, cyanosis Neuro: CN II-XII intact, no motor weakness, Psych: cooperative, euthymic mood, judgment and insight is intact Hospital course: Patient is a 84-year-old male with a past medical history of osteoarthritis who is coming in with 5 days of worsening diffuse abdominal pain and also 2 days of no bowel movement. In the ED patient had a CT abdomen that showed airspace consolidations at the lung bases preferentially involving the right middle lobe consistent with multilobar pneumonia, dilated small bowel measuring up to 3.2 cm concerning for bowel obstruction with no definite transition point identified, wall thickening of the urinary bladder and diverticulosis without acute diverticulitis. Assessment and plan Small bowel obstruction N.p.o. IV fluids at 75 cc an hour, will d/c Monitor electrolytes while patient is n.p.o. General surgery consult appreciated Encourage patient to ambulate in the hallways D/c toradol PRN now that pt is on gadiel toradol per surgery Pt is on TPN CKD stage II Renal function at baseline Alcohol dependence CIWA protocol Patient not in withdrawal Incidental finding of right midlung consolidation and bilateral lower lung consolidation Patient denying any coughing fevers or chills Pt was noted to have normal PC, will d/c abx Increase patient's duonebs to q4h which is what he does at home DVT prophylaxis: heparin Objective - Vital Signs Vital signs: Vital Signs Temp 98.5 F 04/15/24 00:48 Pulse 78 04/15/24 09:14 Resp 18 04/15/24 00:48 BP 147/68 04/15/24 00:48 Pulse Ox 96 04/15/24 09:08 FiO2 Intake & Output 04/14/24 04/15/24 04/15/24 18:59 06:59 18:59 Output Total 325 Balance -325 Weight 68.039 kg Output: Urine 325 Other: Voiding Method Indwelling Catheter Urinal Urinal - Labs CBC & Chem 7: 04/14/24 04:10 04/15/24 04:30 Labs: Abnormal Lab Results - Last 24 Hours (Table) 04/14/24 04/14/24 04/14/24 Range/Units 11:40 16:28 21:04 Sodium (137-145) mmol/L Glucose (74-99) mg/dL POC Glucose (mg/dL) 126 H 140 H 152 H (70-110) mg/dL 04/15/24 04/15/24 04/15/24 Range/Units 01:56 04:30 05:36 Sodium 135 L (137-145) mmol/L Glucose 145 H (74-99) mg/dL POC Glucose (mg/dL) 161 H 152 H (70-110) mg/dL
[2024-04-15 11:29] LABS: Glucose,Whole Blood 166 mg/dL (70-110)
[2024-04-15] MEDS: FUROSEMIDE 10 MG/ML 2 ML VIAL IV ONE (12:52)
[2024-04-15 16:33] LABS: Glucose,Whole Blood 168 mg/dL (70-110)
[2024-04-15 20:53] LABS: Glucose,Whole Blood 191 mg/dL (70-110)
[2024-04-16 01:58] LABS: Glucose,Whole Blood 141 mg/dL (70-110)
[2024-04-16 05:47] LABS: Glucose,Whole Blood 156 mg/dL (70-110)
[2024-04-16 08:00] LABS: African American GFR (CKD) >90 (>60 ml/min/1.73 sqM); Anion Gap 1 mmol/L; Blood Urea Nitrogen 19 mg/dL (9-20); Calcium 8.6 mg/dL (8.4-10.2); Carbon Dioxide 31 mmol/L (22-30); Chloride 103 mmol/L (98-107); Glucose 106 mg/dL (74-99); Magnesium 1.5 mg/dL (1.6-2.3); Non-African American GFR(CKD) 82 (>60 ml/min/1.73 sqM); Phosphorus 3.7 mg/dL (2.5-4.5); Potassium 3.9 mmol/L (3.5-5.1); Sodium 135 mmol/L (137-145)
[2024-04-16 10:37] LABS: Basophils # (A) 0.03 X 10*3/uL (0.00-0.10); Basophils % (A) 0.4 %; Eosinophils # (A) 0.34 X 10*3/uL (0.04-0.35); Eosinophils % (A) 4.8 %; HCT 30.5 % (39.6-50.0); HGB 9.4 g/dL (13.0-17.0); Lymphocytes # (A) 1.08 X 10*3/uL (0.90-5.00); Lymphocytes % (A) 15.1 %; MCH 29.5 pg (27.0-32.0); MCHC 30.8 g/dL (32.0-37.0); MCV 95.6 FL (80.0-97.0); Monocytes # (A) 0.92 X 10*3/uL (0.20-1.00); Monocytes % (A) 12.9 %; NRBC Per 100 WBC 0 X 10*3/uL (0.00-0.01); Neutrophils # (A) 4.64 X 10*3/uL (1.80-7.70); Neutrophils % (A) 65.1 %; Platelet Count 240 X 10*3/uL (140-440); RBC 3.19 X 10*6/uL (4.40-5.60); RDW 15.4 % (11.5-14.5); WBC 7.13 X 10*3/uL (4.50-10.00)
[2024-04-16 11:15] LABS: Glucose,Whole Blood 155 mg/dL (70-110)
--- NOTE | 2024-04-16 11:30 | XR ---
EXAMINATION TYPE: XR chest 2V DATE OF EXAM: 04/16/2024 COMPARISON: 04/14/2024 HISTORY: Shortness of breath TECHNIQUE: Frontal and lateral views of the chest are obtained. FINDINGS: Scattered senescent parenchymal changes noted. Hyperinflation compatible with COPD. Infiltrate right medial lung base. Small right-sided pleural effusion. Heart size is stable. Mediastinal structures are stable and grossly unremarkable. No evidence for hilar prominence. Degenerative changes dorsal spine. IMPRESSION: 1. Infiltrate right medial lung base. Small right-sided pleural effusion.
--- NOTE | 2024-04-16 11:32 | P.PN ---
Subjective Progress Note Date: 04/16/24 Principal diagnosis: sbo 84-year-old male with a past medical history of osteoarthritis who is coming in with 5 days of worsening diffuse abdominal pain and also 2 days of no bowel movement. In the ED patient had a CT abdomen that showed airspace consolidations at the lung bases preferentially involving the right middle lobe consistent with multilobar pneumonia, dilated small bowel measuring up to 3.2 cm concerning for bowel obstruction with no definite transition point identified, wall thickening of the urinary bladder and diverticulosis without acute diverticulitis. 04/16 Doing well, passing some gas. No bm. No sob or cp. Objective - Vital Signs Vital signs: Vital Signs Temp 98.9 F 04/16/24 07:48 Pulse 76 04/16/24 08:54 Resp 17 04/16/24 07:48 BP 151/67 04/16/24 07:48 Pulse Ox 96 04/16/24 07:48 FiO2 Intake & Output 04/15/24 04/16/24 04/16/24 18:59 06:59 18:59 Intake Total 1032 Output Total 100 Balance 1032 -100 Intake: Intake, IV Titration 1032 Amount Sodium Acetate 30 meq 1032 Potassium Phosphate 21 mmol Calcium Gluconate 1 gm In Amino Acids 5 %/ Dextrose 20 % 1,000 ml @ 82 mls/hr IV .BY DURATION [facility] Rx#:[id number] Output: Urine 100 Other: Voiding Method Urinal Urinal - Exam Constitutional: No acute distress, conversant, pleasant Eyes:Anicteric sclerae, moist conjunctiva, no lid-lag, PERRLA, ENMT: Oropharynx clear, no erythema, exudates Neck: Supple, FROM, no masses, or JVD, No carotid bruits, No thyromegaly Lungs: Clear to auscultation, Clear to percussion, Normal respiratory effort, no accessory muscle use Cardiovascular: Heart regular in rate and rhythm, No murmurs, gallops, or rubs, No peripheral edema Abdominal: Soft, Nontender, no guarding, rebound or rigidity, Normoactive bowel sounds, No hepatomegaly, No splenomegaly, No palpable mass Skin: Normal temperature, tone, texture, turgor, no induration, No subcutaneous nodules, No rash, lesions, No ulcers Extremities: No digital cyanosis, No clubbing, Pedal pulses intact and symmetrical, Radial pulses intact and symmetrical, No calf tenderness Psychiatric: Alert and oriented to person, place and time, appropriate affect, intact judgement Neuro: Muscles Strength 5/5 in all 4 extremities, Sensation to light touch grossly present throughout, Cranial nerves II-XII grossly intact, no focal sensory deficits - Labs CBC & Chem 7: 04/16/24 07:11 04/16/24 07:11 Labs: Abnormal Lab Results - Last 24 Hours (Table) 04/15/24 04/15/24 04/15/24 Range/Units 11:27 16:31 20:52 RBC (4.40-5.60) X 10*6/uL Hgb (13.0-17.0) g/dL Hct (39.6-50.0) % MCHC (32.0-37.0) g/dL RDW (11.5-14.5) % Immature Gran # (0.00-0.04) X 10*3/uL Sodium (137-145) mmol/L Carbon Dioxide (22-30) mmol/L Glucose (74-99) mg/dL POC Glucose (mg/dL) 166 H 168 H 191 H (70-110) mg/dL Magnesium (1.6-2.3) mg/dL 04/16/24 04/16/24 04/16/24 Range/Units 01:56 05:46 07:11 RBC (4.40-5.60) X 10*6/uL Hgb (13.0-17.0) g/dL Hct (39.6-50.0) % MCHC (32.0-37.0) g/dL RDW (11.5-14.5) % Immature Gran # (0.00-0.04) X 10*3/uL Sodium 135 L (137-145) mmol/L Carbon Dioxide 31 H (22-30) mmol/L Glucose 106 H (74-99) mg/dL POC Glucose (mg/dL) 141 H 156 H (70-110) mg/dL Magnesium 1.5 L (1.6-2.3) mg/dL 04/16/24 04/16/24 Range/Units 07:11 11:11 RBC 3.19 L (4.40-5.60) X 10*6/uL Hgb 9.4 L (13.0-17.0) g/dL Hct 30.5 L (39.6-50.0) % MCHC 30.8 L (32.0-37.0) g/dL RDW 15.4 H (11.5-14.5) % Immature Gran # 0.12 H (0.00-0.04) X 10*3/uL Sodium (137-145) mmol/L Carbon Dioxide (22-30) mmol/L Glucose (74-99) mg/dL POC Glucose (mg/dL) 155 H (70-110) mg/dL Magnesium (1.6-2.3) mg/dL Assessment and Plan Plan: Small bowel obstruction He is allowed Ice chips and popsicles by surgery, hoping to advance. Follow pathology results of the colon mass Monitor electrolytes while patient is n.p.o. Low mg 04/16, replace Encourage patient to ambulate in the hallways Pt is on TPN CKD stage II Renal function at baseline Alcohol dependence CIWA protocol Patient not in withdrawal Incidental finding of right midlung consolidation and bilateral lower lung consolidation Patient denying any coughing fevers or chills Pt was noted to have normal PC, will d/c abx Increase patient's duonebs to q4h which is what he does at home DVT prophylaxis: heparin
[2024-04-16] MEDS ORDERED: IPRATROPIUM-ALBUTEROL 3 ML NEB INHALATION PRN (11:50)
[2024-04-16] MEDS: MAGNESIUM SULFATE-D5W PMX 1 GM in DEXTROSE/WATER 1 100ML.BAG IVPB SCH (11:51)
--- NOTE | 2024-04-16 11:57 | P.PN ---
Subjective Progress Note Date: 04/16/24 CHIEF COMPLAINT: Bowel obstruction with obstructing right colon mass HISTORY OF PRESENT ILLNESS: Patient is postop day #6 status post exploratory laparotomy with right colectomy. Patient complains of shortness of breath. He does report a cough. He reports abdominal pain controlled. He is having flatu s. Denies any nausea or vomiting. Afebrile. Patient reports no significant improvement with the shortness of breath with the dose of Lasix. He is requiring a little more oxygen currently now on 4 L. Chest x-ray repeated this morning reports infiltrate right middle lung base. Small right sided pleural effusion. Medicine service had stopped antibiotics. Discharge PHYSICAL EXAM: VITAL SIGNS: Reviewed. GENERAL: no acute distress. Chest: audible wheeze ABDOMEN: Mildly distended. Tenderness at incision site. Incisional dressing clean dry and intact ASSESSMENT: 1. Bowel obstruction with obstructing mass of the right colon status post exploratory laparotomy with right colectomy 2. Daily EtOH use 3. Shortness of breath. History of COPD. PLAN: -Change nebulizer treatments to every 4 hours scheduled and as needed. Discussed case with medicine service MANAGER PATHOLOGY. Will await their further recommendations. -Advance diet to clear liquids -Follow-up on pathology results -Continue TPN for nutrition support -Continue to hold Plavix -Continue pain management -Increase activity level -DVT prophylaxis subcu heparin Physician Sterilisation Technician note has been reviewed by physician. Signing provider agrees with the documented findings, assessment, and plan of care. Objective - Vital Signs Vital signs: Vital Signs Temp 98.9 F 04/16/24 07:48 Pulse 76 04/16/24 08:54 Resp 17 04/16/24 07:48 BP 151/67 04/16/24 07:48 Pulse Ox 96 04/16/24 07:48 FiO2 Intake & Output 04/15/24 04/16/24 04/16/24 18:59 06:59 18:59 Intake Total 1032 Output Total 100 Balance 1032 -100 Intake: Intake, IV Titration 1032 Amount Sodium Acetate 30 meq 1032 Potassium Phosphate 21 mmol Calcium Gluconate 1 gm In Amino Acids 5 %/ Dextrose 20 % 1,000 ml @ 82 mls/hr IV .BY DURATION [facility] Rx#:[id number] Output: Urine 100 Other: Voiding Method Urinal Urinal - Labs CBC & Chem 7: 04/16/24 07:11 04/16/24 07:11 Labs: Abnormal Lab Results - Last 24 Hours (Table) 04/15/24 04/15/24 04/16/24 Range/Units 16:31 20:52 01:56 RBC (4.40-5.60) X 10*6/uL Hgb (13.0-17.0) g/dL Hct (39.6-50.0) % MCHC (32.0-37.0) g/dL RDW (11.5-14.5) % Immature Gran # (0.00-0.04) X 10*3/uL Sodium (137-145) mmol/L Carbon Dioxide (22-30) mmol/L Glucose (74-99) mg/dL POC Glucose (mg/dL) 168 H 191 H 141 H (70-110) mg/dL Magnesium (1.6-2.3) mg/dL 04/16/24 04/16/24 04/16/24 Range/Units 05:46 07:11 07:11 RBC 3.19 L (4.40-5.60) X 10*6/uL Hgb 9.4 L (13.0-17.0) g/dL Hct 30.5 L (39.6-50.0) % MCHC 30.8 L (32.0-37.0) g/dL RDW 15.4 H (11.5-14.5) % Immature Gran # 0.12 H (0.00-0.04) X 10*3/uL Sodium 135 L (137-145) mmol/L Carbon Dioxide 31 H (22-30) mmol/L Glucose 106 H (74-99) mg/dL POC Glucose (mg/dL) 156 H (70-110) mg/dL Magnesium 1.5 L (1.6-2.3) mg/dL 04/16/24 Range/Units 11:11 RBC (4.40-5.60) X 10*6/uL Hgb (13.0-17.0) g/dL Hct (39.6-50.0) % MCHC (32.0-37.0) g/dL RDW (11.5-14.5) % Immature Gran # (0.00-0.04) X 10*3/uL Sodium (137-145) mmol/L Carbon Dioxide (22-30) mmol/L Glucose (74-99) mg/dL POC Glucose (mg/dL) 155 H (70-110) mg/dL Magnesium (1.6-2.3) mg/dL
[2024-04-16] MEDS: IPRATROPIUM-ALBUTEROL 3 ML NEB INHALATION SCH (12:35)
[2024-04-16] MEDS: AMPICILLIN-SULBACTAM 3 GM in SODIUM CHLORIDE 0.9% 100 ML IVPB SCH (14:00)
[2024-04-16] MEDS: 1: MVI, ADULT NO.4 WITH VIT K 10 ML, TRACE (CONC-1ML/DOSE) 1 ML, SODIUM ACETATE 30 MEQ, IV SCH (15:26)
[2024-04-16 16:33] LABS: Glucose,Whole Blood 153 mg/dL (70-110)
[2024-04-16 20:54] LABS: Glucose,Whole Blood 142 mg/dL (70-110)
[2024-04-17 02:09] LABS: Glucose,Whole Blood 142 mg/dL (70-110)
[2024-04-17 05:56] LABS: Glucose,Whole Blood 157 mg/dL (70-110)
[2024-04-17 06:11] LABS: African American GFR (CKD) >90 (>60 ml/min/1.73 sqM); Anion Gap 0 mmol/L; Blood Urea Nitrogen 18 mg/dL (9-20); Calcium 8.3 mg/dL (8.4-10.2); Carbon Dioxide 33 mmol/L (22-30); Chloride 102 mmol/L (98-107); Glucose 123 mg/dL (74-99); Magnesium 1.9 mg/dL (1.6-2.3); Non-African American GFR(CKD) 83 (>60 ml/min/1.73 sqM); Phosphorus 3.7 mg/dL (2.5-4.5); Potassium 4.4 mmol/L (3.5-5.1); Sodium 135 mmol/L (137-145)
[2024-04-17 11:29] LABS: Glucose,Whole Blood 131 mg/dL (70-110)
--- NOTE | 2024-04-17 12:57 | P.PN ---
Subjective Progress Note Date: 04/17/24 CHIEF COMPLAINT: Bowel obstruction with obstructing right colon mass HISTORY OF PRESENT ILLNESS: Patient is postop day #7 status post exploratory laparotomy with right colectomy. Patient reports that he is feeling better today. Pain is controlled. He did have a little abdominal pain earlier this morning but is now better. He has started having bowel movements. He is having flatus. He reports his shortness of breath is better. He is now on room air. Afebrile. Medicine service did start antibiotics for possible infiltrate. PHYSICAL EXAM: VITAL SIGNS: Reviewed. GENERAL: no acute distress. ABDOMEN: Mildly distended. Incisional dressing clean dry and intact ASSESSMENT: 1. Bowel obstruction with obstructing mass of the right colon status post exploratory laparotomy with right colectomy 2. Daily EtOH use 3. Shortness of breath. History of COPD. 4. Right lower lobe infiltrate now on antibiotics PLAN: -Advance diet to clear liquids -Encourage patient to increase activity level -Continue TPN for nutrition support -Continue to hold Plavix -Continue pain management -Encourage incentive spirometer and use -Continue nebulizer treatments -DVT prophylaxis subcu heparin Physician Landscape Designer note has been reviewed by physician. Signing provider agrees with the documented findings, assessment, and plan of care. I have personally seen and examined the patient, reviewed the ALMOND CUTTING MACHINE TENDER /PAs history, exam and MDM and agree with the assessment and plan as written. Based on total visit time, I have performed more than 50% of the visit. As above: Patient doing well today. Pain is mostly absent. He had some bowel movements. Tolerating clears. Advance to full liquids tomorrow. His pathology results were reviewed with he and his . He will follow-up with medical oncology as outpatient. No need for oncology consult now. If tolerating full liquids tomorrow start weaning TPN. Anticipate discharge over the weekend or on Sunday. Objective - Vital Signs Vital signs: Vital Signs Temp 97.8 F 04/17/24 07:24 Pulse 76 04/17/24 09:54 Resp 18 04/17/24 07:24 BP 136/65 04/17/24 07:24 Pulse Ox 96 04/17/24 07:24 FiO2 Intake & Output 04/16/24 04/17/24 04/17/24 18:59 06:59 18:59 Output Total 375 Balance -375 Output: Urine 375 Other: Voiding Method Urinal # Voids 1 # Bowel Movements 1 - Labs CBC & Chem 7: 04/16/24 07:11 04/17/24 04:58 Labs: Abnormal Lab Results - Last 24 Hours (Table) 04/16/24 04/16/24 04/17/24 Range/Units 16:31 20:52 02:07 Sodium (137-145) mmol/L Carbon Dioxide (22-30) mmol/L Glucose (74-99) mg/dL POC Glucose (mg/dL) 153 H 142 H 142 H (70-110) mg/dL Calcium (8.4-10.2) mg/dL 04/17/24 04/17/24 04/17/24 Range/Units 04:58 05:54 11:27 Sodium 135 L (137-145) mmol/L Carbon Dioxide 33 H (22-30) mmol/L Glucose 123 H (74-99) mg/dL POC Glucose (mg/dL) 157 H 131 H (70-110) mg/dL Calcium 8.3 L (8.4-10.2) mg/dL
[2024-04-17 16:39] LABS: Glucose,Whole Blood 99 mg/dL (70-110)
[2024-04-17] MEDS: 1: MVI, ADULT NO.4 WITH VIT K 10 ML, TRACE (CONC-1ML/DOSE) 1 ML, SODIUM ACETATE 30 MEQ, IV SCH (17:13)
[2024-04-17] MEDS: FUROSEMIDE 10 MG/ML 4 ML VIAL IV STA (17:15)
--- NOTE | 2024-04-17 17:19 | P.PN ---
Subjective Progress Note Date: 04/17/24 Hospital course: Patient is a very pleasant 84-year-old MaleWith a past medical history of CAD status post stenting, hypertension, hyperlipidemia, and COPD. He presented to the hospital on 04/10/24 secondary to abdominal pain. Patient was found to have a bowel obstruction with obstructing mass of right colon. He was admitted under our services with consultation to general surgery and underwent exploratory laparotomy with right colectomy on 04/10/24. Physical exam: Patient was seen and fully evaluated at bedside this morning. Patient reports having a small bowel movement this morning. Reports controlled postoperative pain at this time states consistently mild but only goes to moderate with movement. Patient denies having any nausea or vomitingRennie other complaints at this time. Vital signs reviewed and stable. General: Nontoxic, no distress and appears stated age. Derm: Skin warm and dry, normal coloration for ethnicity. Head: Atraumatic, normocephalic and symmetric. Eyes: EOMs intact, no lid lag, and anicteric sclera Mouth: no lip lesions, mucus membranes moist Cardiovascular: regular rate and rhythm with normal S1S2, Systolic murmur, positive posterior tibial pulses bilaterally, and cap refill < 2 seconds. Lungs: Respirations even, regular, and unlabored on room air. Lungs CTA bilater ally, no rhonchi, no rales, no wheezing, and no accessory muscle usage. Abdominal: Soft, Bowel sounds present. Postoperative dressing and abdominal binder in place. Ext: ROM intact. No gross muscle atrophy, 1-2+ pitting bilateral lower extremity edema edema, no contractures Neuro: Speech clear, face symmetrical and CN II-XII grossly intact with no noted focal neuro deficits Psych: Alert and oriented to person, place, time, and situation. Appropriate and pleasant affect. Assessment and Plan of Care: Small bowel obstruction -General surgery following and took patient for exploratory laparotomy with right colectomy on 04/10/2024 -Dietary following managing TPN. -Diet advanced to clear liquid diet this morning. 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 -Encourage out of bed and increase ambulation. -May consider Reglan to aid increasing bowel motility. -Continue symptomatic care and pain management. -Postoperative wound/dressing management per general surgery team. -Continue GI prophylaxis with Protonix 40 mg IVP daily. -Heparin for DVT prophylaxis. CKD stage II -Renal function stable and at baseline. Alcohol dependence -CIWA protocolIn place, patient not showing signs of active withdrawal. Incidental finding of right midlung consolidation and bilateral lower lung consolidation Bilateral lower extremity edema -Patient denying any coughing, shortness of breath, fevers or chills -Pt was noted to have normal WBC And no other signs of infection. Antibiotic was discontinued on 04/16/24. -Continue scheduled DuoNebs 4 times daily and every 2 hours as needed for shortness of breath and/or wheezing. -Will order a one-time dose of IV Lasix, -Encourage patient to use incentive spirometry 10-15 times hourly while awake. CODE STATUS: Full code DVT prophylaxis: Heparin Anticipated discharge date: Pending clinical course Anticipated discharge place: Home with homecare vs SNF. Patient was seen independently by Nurse Pracitioner. This document was prepared using [employer] dictation software. Please allow for errors in booster pump oiler,While rare they do occur. .I reviewed the documentation as provided by the GLADIS above, who is the original author of this note. I agree with the documented assessment and plan, with the following changes: none Objective - Vital Signs Vital signs: Vital Signs Temp 97.8 F 04/17/24 07:24 Pulse 81 04/17/24 07:24 Resp 18 04/17/24 07:24 BP 136/65 04/17/24 07:24 Pulse Ox 96 04/17/24 07:24 FiO2 Intake & Output 04/16/24 04/17/24 04/17/24 18:59 06:59 18:59 Output Total 375 Balance -375 Output: Urine 375 Other: Voiding Method Urinal # Voids 1 # Bowel Movements 1 - Labs CBC & Chem 7: 04/16/24 07:11 04/20/24 05:42 Labs: Abnormal Lab Results - Last 24 Hours (Table) 04/16/24 04/16/24 04/16/24 Range/Units 07:11 11:11 16:31 RBC 3.19 L (4.40-5.60) X 10*6/uL Hgb 9.4 L (13.0-17.0) g/dL Hct 30.5 L (39.6-50.0) % MCHC 30.8 L (32.0-37.0) g/dL RDW 15.4 H (11.5-14.5) % Immature Gran # 0.12 H (0.00-0.04) X 10*3/uL Sodium (137-145) mmol/L Carbon Dioxide (22-30) mmol/L Glucose (74-99) mg/dL POC Glucose (mg/dL) 155 H 153 H (70-110) mg/dL Calcium (8.4-10.2) mg/dL 04/16/24 04/17/24 04/17/24 Range/Units 20:52 02:07 04:58 RBC (4.40-5.60) X 10*6/uL Hgb (13.0-17.0) g/dL Hct (39.6-50.0) % MCHC (32.0-37.0) g/dL RDW (11.5-14.5) % Immature Gran # (0.00-0.04) X 10*3/uL Sodium 135 L (137-145) mmol/L Carbon Dioxide 33 H (22-30) mmol/L Glucose 123 H (74-99) mg/dL POC Glucose (mg/dL) 142 H 142 H (70-110) mg/dL Calcium 8.3 L (8.4-10.2) mg/dL 04/17/24 Range/Units 05:54 RBC (4.40-5.60) X 10*6/uL Hgb (13.0-17.0) g/dL Hct (39.6-50.0) % MCHC (32.0-37.0) g/dL RDW (11.5-14.5) % Immature Gran # (0.00-0.04) X 10*3/uL Sodium (137-145) mmol/L Carbon Dioxide (22-30) mmol/L Glucose (74-99) mg/dL POC Glucose (mg/dL) 157 H (70-110) mg/dL Calcium (8.4-10.2) mg/dL
[2024-04-17 20:41] LABS: Glucose,Whole Blood 132 mg/dL (70-110)
[2024-04-18 02:27] LABS: Glucose,Whole Blood 129 mg/dL (70-110)
[2024-04-18 04:46] LABS: ALT 66 U/L (4-49); AST 73 U/L (17-59); African American GFR (CKD) 85 (>60 ml/min/1.73 sqM); Albumin 2.4 g/dL (3.5-5.0); Albumin/Globulin Ratio 1.1; Alkaline Phosphatase 69 U/L (38-126); Anion Gap 0 mmol/L; Blood Urea Nitrogen 25 mg/dL (9-20); Calcium 8.5 mg/dL (8.4-10.2); Carbon Dioxide 32 mmol/L (22-30); Chloride 101 mmol/L (98-107); Globulin 2.2 g/dL; Glucose 115 mg/dL (74-99); Magnesium 1.8 mg/dL (1.6-2.3); Non-African American GFR(CKD) 73 (>60 ml/min/1.73 sqM); Phosphorus 4.3 mg/dL (2.5-4.5); Sodium 133 mmol/L (137-145); Total Bilirubin 0.4 mg/dL (0.2-1.3); Total Protein 4.6 g/dL (6.3-8.2)
[2024-04-18 06:05] LABS: Glucose,Whole Blood 117 mg/dL (70-110)
--- NOTE | 2024-04-18 11:45 | P.PN ---
Subjective Progress Note Date: 04/18/24 CHIEF COMPLAINT: Bowel obstruction with obstructing right colon mass HISTORY OF PRESENT ILLNESS: Patient is postop day #8 status post exploratory laparotomy with right colectomy. Patient is sitting up in bedside chair. He does get short of breath with movement. He is due for breathing treatment this morning. Patient reports his pain is controlled. He is having bowel movements. Appetite is still poor. But denies any nausea or vomiting. Afebrile. Sodium 133 potassium 5.0 creatinine 0.94 AST 73 ALT [address] Raymundo who is covering for Dr. Field PHYSICAL EXAM: VITAL SIGNS: Reviewed. GENERAL: no acute distress. ABDOMEN: Mildly distended. Incisional dressing clean dry and intact ASSESSMENT: 1. Bowel obstruction with obstructing mass of the right colon status post exp loratory laparotomy with right colectomy 2. Daily EtOH use 3. Shortness of breath. History of COPD. 4. Right lower lobe infiltrate now on antibiotics PLAN: -Diet advanced to full liquids this morning -Viking added for oral pain medication -Continue TPN for now until oral intake increases -Continue pain management -Encourage incentive spirometer and use -Continue nebulizer treatments -Dr. Field reviewed pathology results with patient. He recommends oncology follow-up as outpatient. -Anticipate discharge over the weekend or on Sunday -DVT prophylaxis subcu heparin Physician Manager Car note has been reviewed by physician. Signing provider agrees with the documented findings, assessment, and plan of care. Objective - Vital Signs Vital signs: Vital Signs Temp 98.5 F 04/18/24 07:54 Pulse 80 04/18/24 09:57 Resp 18 04/18/24 08:00 BP 154/68 04/18/24 07:54 Pulse Ox 96 04/18/24 09:47 FiO2 Intake & Output 04/17/24 04/18/24 04/18/24 18:59 06:59 18:59 Output Total 300 Balance -300 Weight 68.039 kg Output: Urine 300 Other: Voiding Method Urinal Urinal - Labs CBC & Chem 7: 04/16/24 07:11 04/18/24 03:44 Labs: Abnormal Lab Results - Last 24 Hours (Table) 04/17/24 04/18/24 04/18/24 Range/Units 20:39 02:25 03:44 Sodium 133 L (137-145) mmol/L Carbon Dioxide 32 H (22-30) mmol/L BUN 25 H (9-20) mg/dL Glucose 115 H (74-99) mg/dL POC Glucose (mg/dL) 132 H 129 H (70-110) mg/dL AST 73 H (17-59) U/L ALT 66 H (4-49) U/L Total Protein 4.6 L (6.3-8.2) g/dL Albumin 2.4 L (3.5-5.0) g/dL 04/18/24 Range/Units 06:03 Sodium (137-145) mmol/L Carbon Dioxide (22-30) mmol/L BUN (9-20) mg/dL Glucose (74-99) mg/dL POC Glucose (mg/dL) 117 H (70-110) mg/dL AST (17-59) U/L ALT (4-49) U/L Total Protein (6.3-8.2) g/dL Albumin (3.5-5.0) g/dL
[2024-04-18 11:49] LABS: Glucose,Whole Blood 143 mg/dL (70-110)
--- NOTE | 2024-04-18 15:37 | P.PN ---
Subjective Progress Note Date: 04/18/24 Principal diagnosis: sbo Doing well. Denies sob or abdominal pain. Continues to pass stools and gas. Objective - Vital Signs Vital signs: Vital Signs Temp 98.4 F 04/18/24 13:54 Pulse 83 04/18/24 13:54 Resp 16 04/18/24 13:54 BP 114/56 04/18/24 13:54 Pulse Ox 95 04/18/24 13:54 FiO2 Intake & Output 04/17/24 04/18/24 04/18/24 18:59 06:59 18:59 Output Total 300 Balance -300 Weight 68.039 kg 68.039 kg Output: Urine 300 Other: Voiding Method Urinal Urinal - Exam Constitutional: No acute distress, conversant, pleasant Eyes:Anicteric sclerae, moist conjunctiva, no lid-lag, PERRLA, ENMT: Oropharynx clear, no erythema, exudates Neck: Supple, FROM, no masses, or JVD, No carotid bruits, No thyromegaly Lungs: Clear to auscultation, Clear to percussion, Normal respiratory effort, no accessory muscle use Cardiovascular: Heart regular in rate and rhythm, No murmurs, gallops, or rubs, No peripheral edema Abdominal: Soft, Nontender, no guarding, rebound or rigidity, Normoactive bowel sounds, No hepatomegaly, No splenomegaly, No palpable mass Skin: Normal temperature, tone, texture, turgor, no induration, No subcutaneous nodules, No rash, lesions, No ulcers Extremities: No digital cyanosis, No clubbing, Pedal pulses intact and symmetrical, Radial pulses intact and symmetrical, No calf tenderness Psychiatric: Alert and oriented to person, place and time, appropriate affect, intact judgement Neuro: Muscles Strength 5/5 in all 4 extremities, Sensation to light touch grossly present throughout, Cranial nerves II-XII grossly intact, no focal sensory deficits - Labs CBC & Chem 7: 04/16/24 07:11 04/18/24 03:44 Labs: Abnormal Lab Results - Last 24 Hours (Table) 04/17/24 04/18/24 04/18/24 Range/Units 20:39 02:25 03:44 Sodium 133 L (137-145) mmol/L Carbon Dioxide 32 H (22-30) mmol/L BUN 25 H (9-20) mg/dL Glucose 115 H (74-99) mg/dL POC Glucose (mg/dL) 132 H 129 H (70-110) mg/dL AST 73 H (17-59) U/L ALT 66 H (4-49) U/L Total Protein 4.6 L (6.3-8.2) g/dL Albumin 2.4 L (3.5-5.0) g/dL 04/18/24 04/18/24 Range/Units 06:03 11:47 Sodium (137-145) mmol/L Carbon Dioxide (22-30) mmol/L BUN (9-20) mg/dL Glucose (74-99) mg/dL POC Glucose (mg/dL) 117 H 143 H (70-110) mg/dL AST (17-59) U/L ALT (4-49) U/L Total Protein (6.3-8.2) g/dL Albumin (3.5-5.0) g/dL Assessment and Plan Plan: Small bowel obstruction Diet advanced to full liquid General surgery following and took patient for exploratory laparotomy with right colectomy on 04/10/2024 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 Encourage out of bed and increase ambulation. Continue GI prophylaxis with Protonix 40 mg IVP daily. Monitor electrolytes while patient is n.p.o. Low mg 04/16, replace Encourage patient to ambulate in the hallways Pt is on TPN CKD stage II Renal function at baseline Alcohol dependence CIWA protocol Patient not in withdrawal Incidental finding of right midlung consolidation and bilateral lower lung consolidation Patient denying any coughing fevers or chills Pt was noted to have normal PC, will d/c abx Increase patient's duonebs to q4h which is what he does at home DVT prophylaxis: heparin
[2024-04-18] MEDS: HYDROcodone/APAP 5-325MG 1 EACH TAB PO PRN (16:36)
[2024-04-18 17:02] LABS: Glucose,Whole Blood 102 mg/dL (70-110)
[2024-04-18 21:50] LABS: Glucose,Whole Blood 97 mg/dL (70-110)
[2024-04-19 03:17] LABS: Glucose,Whole Blood 84 mg/dL (70-110)
[2024-04-19 06:26] LABS: Glucose,Whole Blood 86 mg/dL (70-110)
[2024-04-19 06:56] LABS: African American GFR (CKD) 83 (>60 ml/min/1.73 sqM); Anion Gap 3 mmol/L; Blood Urea Nitrogen 19 mg/dL (9-20); Calcium 8.4 mg/dL (8.4-10.2); Carbon Dioxide 28 mmol/L (22-30); Chloride 103 mmol/L (98-107); Glucose 79 mg/dL (74-99); Magnesium 1.8 mg/dL (1.6-2.3); Non-African American GFR(CKD) 72 (>60 ml/min/1.73 sqM); Phosphorus 3.3 mg/dL (2.5-4.5); Potassium 4.4 mmol/L (3.5-5.1); Sodium 134 mmol/L (137-145)
--- NOTE | 2024-04-19 09:13 | P.PN ---
Subjective Progress Note Date: 04/19/24 Patient feels slightly better. On exam vital signs appear stable. Abdomen is soft. Incisions clean. Status post right colectomy for small bowel obstruction. Patient continues to receive supportive care. Objective - Vital Signs Vital signs: Vital Signs Temp 98.3 F 04/19/24 01:09 Pulse 76 04/19/24 07:43 Resp 17 04/19/24 01:09 BP 120/52 04/19/24 01:09 Pulse Ox 93 L 04/19/24 01:09 FiO2 Intake & Output 04/18/24 04/19/24 04/19/24 18:59 06:59 18:59 Weight 68.039 kg Other: Voiding Method Urinal # Voids 1 # Bowel Movements 1 - Labs CBC & Chem 7: 04/16/24 07:11 04/19/24 05:50 Labs: Abnormal Lab Results - Last 24 Hours (Table) 04/18/24 04/19/24 Range/Units 11:47 05:50 Sodium 134 L (137-145) mmol/L POC Glucose (mg/dL) 143 H (70-110) mg/dL
[2024-04-19 12:06] LABS: Glucose,Whole Blood 136 mg/dL (70-110)
--- NOTE | 2024-04-19 12:33 | P.PN ---
Subjective Progress Note Date: 04/19/24 Principal diagnosis: sbo Doing well. Denies sob or abdominal pain. Continues to pass stools and gas. Objective - Vital Signs Vital signs: Vital Signs Temp 98.3 F 04/19/24 06:54 Pulse 75 04/19/24 11:39 Resp 19 04/19/24 06:54 BP 125/70 04/19/24 06:54 Pulse Ox 96 04/19/24 06:54 FiO2 Intake & Output 04/18/24 04/19/24 04/19/24 18:59 06:59 18:59 Weight 68.039 kg Other: Voiding Method Urinal # Voids 1 # Bowel Movements 1 - Exam Constitutional: No acute distress, conversant, pleasant Eyes:Anicteric sclerae, moist conjunctiva, no lid-lag, PERRLA, ENMT: Oropharynx clear, no erythema, exudates Neck: Supple, FROM, no masses, or JVD, No carotid bruits, No thyromegaly Lungs: Clear to auscultation, Clear to percussion, Normal respiratory effort, no accessory muscle use Cardiovascular: Heart regular in rate and rhythm, No murmurs, gallops, or rubs, No peripheral edema Abdominal: Soft, Nontender, no guarding, rebound or rigidity, Normoactive bowel sounds, No hepatomegaly, No splenomegaly, No palpable mass Skin: Normal temperature, tone, texture, turgor, no induration, No subcutaneous nodules, No rash, lesions, No ulcers Extremities: No digital cyanosis, No clubbing, Pedal pulses intact and symmetrical, Radial pulses intact and symmetrical, No calf tenderness Psychiatric: Alert and oriented to person, place and time, appropriate affect, intact judgement Neuro: Muscles Strength 5/5 in all 4 extremities, Sensation to light touch grossly present throughout, Cranial nerves II-XII grossly intact, no focal sensory deficits - Labs CBC & Chem 7: 04/16/24 07:11 04/19/24 05:50 Labs: Abnormal Lab Results - Last 24 Hours (Table) 04/19/24 04/19/24 Range/Units 05:50 12:04 Sodium 134 L (137-145) mmol/L POC Glucose (mg/dL) 136 H (70-110) mg/dL Assessment and Plan Plan: Small bowel obstruction Diet advanced to full liquid General surgery following and took patient for exploratory laparotomy with right colectomy on 04/10/2024 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 Encourage out of bed and increase ambulation. Continue GI prophylaxis with Protonix 40 mg IVP daily. Monitor electrolytes while patient is n.p.o. Low mg 04/16, replace Encourage patient to ambulate in the hallways Pt is on TPN CKD stage II Renal function at baseline Alcohol dependence CIWA protocol Patient not in withdrawal Incidental finding of right midlung consolidation and bilateral lower lung consolidation Patient denying any coughing fevers or chills Pt was noted to have normal PC, will d/c abx Increase patient's duonebs to q4h which is what he does at home DVT prophylaxis: heparin Anticipated discharge Sunday
[2024-04-19 16:40] LABS: Glucose,Whole Blood 112 mg/dL (70-110)
[2024-04-19 21:06] LABS: Glucose,Whole Blood 89 mg/dL (70-110)
[2024-04-20 02:17] LABS: Glucose,Whole Blood 89 mg/dL (70-110)
[2024-04-20 06:02] LABS: Glucose,Whole Blood 86 mg/dL (70-110)
[2024-04-20 06:24] LABS: African American GFR (CKD) 76 (>60 ml/min/1.73 sqM); Anion Gap 2 mmol/L; Blood Urea Nitrogen 12 mg/dL (9-20); Calcium 8.2 mg/dL (8.4-10.2); Carbon Dioxide 28 mmol/L (22-30); Chloride 104 mmol/L (98-107); Glucose 84 mg/dL (74-99); Magnesium 1.8 mg/dL (1.6-2.3); Non-African American GFR(CKD) 66 (>60 ml/min/1.73 sqM); Phosphorus 3.2 mg/dL (2.5-4.5); Potassium 4.1 mmol/L (3.5-5.1); Sodium 134 mmol/L (137-145)
--- NOTE | 2024-04-20 09:47 | P.PN ---
Subjective Progress Note Date: 04/20/24 Patient has some complaints of shortness of breath. He denies any abdominal pain. On exam vital signs appear stable. Abdomen is soft. Incisions healing. Status post right colectomy for small bowel production. The medical team will address the shortness of breath. He will be observed closely. Objective - Vital Signs Vital signs: Vital Signs Temp 98.8 F 04/20/24 01:15 Pulse 72 04/20/24 09:13 Resp 19 04/20/24 01:15 BP 110/55 04/20/24 01:15 Pulse Ox 90 L 04/20/24 01:15 FiO2 Intake & Output 04/19/24 04/20/24 04/20/24 18:59 06:59 18:59 Other: # Voids 1 - Labs CBC & Chem 7: 04/16/24 07:11 04/20/24 05:42 Labs: Abnormal Lab Results - Last 24 Hours (Table) 04/19/24 04/19/24 04/20/24 Range/Units 12:04 16:38 05:42 Sodium 134 L (137-145) mmol/L POC Glucose (mg/dL) 136 H 112 H (70-110) mg/dL Calcium 8.2 L (8.4-10.2) mg/dL
[2024-04-20 11:43] LABS: Glucose,Whole Blood 96 mg/dL (70-110)
--- NOTE | 2024-04-20 13:34 | P.PN ---
Subjective Progress Note Date: 04/20/24 Hospital Course: 84-year-old male with history of COPD, CAD status post stent, hypertension, dy slipidemia presented with abdominal pain. Initial CT showed possible multilobar pneumonia mostly involving right middle lobe, dilated small bowel measuring up to 3.2 cm concerning for bowel obstruction, wall thickening of urinary bladder, diverticulosis. Found to have bowel obstruction with obstructing mass of right colon. General surgery consulted. He is status post ex lap with right colectom y. Subjective: Patient seen and examined at bedside. No acute events overnight. He claims that he is having some difficulty breathing. Not much bowel function at the moment. Denies any nausea or vomiting. Pertinent positives and negatives as discussed above, a complete review of systems was performed and all other systems are negative. Vitals Signs Reviewed. General: Nontoxic, no distress, appears at stated age Derm: Warm, dry, midline incision clean, dry, intact Head: Atraumatic, normocephalic, symmetric Eyes: EOMI, no lid lag, anicteric sclera Mouth: No lip lesion, mucus membranes moist Cardiovascular: S1S2 reg, no murmur Lungs: CTA bilateral, no rhonchi, no rales, no accessory muscle use, on supplemental oxygen Abdominal: Soft, nontender to palpation, no guarding, no appreciable organomegaly Ext: No gross muscle atrophy, no edema, no contractures Neuro: CN II-XI grossly intact, no focal neuro deficits Psych: Alert, oriented, appropriate affect Data Reviewed Today: Pertinent Labs: Sodium 134, potassium 4.1, creatinine 1.03, blood glucose range between 84-96, magnesium 1.8 Imaging: New imaging Assessment and Plan: Patient is severely ill, needs close monitoring. Prognosis guarded. Active: Small bowel obstruction secondary to grade 2 adenocarcinoma, status post right colectomy Normocytic anemia, anticipated outcome of surgery -Continue full liquid diet -General Surgery note reviewed, continue observation -Continue pantoprazole 40 IV daily -Pain control with oral [place] as needed, IV Dilaudid as needed, monitor for sedation -Repeat CBC and BMP tomorrow -PT/OT Acute hypoxic respiratory failure COPD, without exacerbation -Possibly in the setting of atelectasis -Continue incentive spirometer -Chest x-ray ordered -Wean oxygen -Continue IV Unasyn 3 g every 6 hours for now for possible multilobar pneumonia seen on CT -Will continue to assess for need for steroids -Continue DuoNebs 4 times daily and every 2 hours as needed -Restarted home Pulmicort twice daily, and montelukast 10 mg daily History of CAD status post stent Dyslipidemia Hypertension -PCI recently done in October -Restarted home aspirin 81 mg daily, atorvastatin 40 mg daily -Hold Plavix, restart when okay by surgery -Hold antihypertensives -No active chest pain Alcohol dependence -Out of window for alcohol withdrawal, DC [facility] protocol CKD stage III -Stable renal function DVT ppx: Subcu heparin Code status: Full code Anticipated discharge place: Pending clinical course Anticipated discharge time: Pending clinical course Objective - Vital Signs Vital signs: Vital Signs Temp 98.8 F 04/20/24 01:15 Pulse 76 04/20/24 12:18 Resp 19 04/20/24 01:15 BP 110/55 04/20/24 01:15 Pulse Ox 90 L 04/20/24 01:15 FiO2 Intake & Output 04/19/24 04/20/24 04/20/24 18:59 06:59 18:59 Other: # Voids 1 - Labs CBC & Chem 7: 04/16/24 07:11 04/20/24 05:42 Labs: Abnormal Lab Results - Last 24 Hours (Table) 04/19/24 04/20/24 Range/Units 16:38 05:42 Sodium 134 L (137-145) mmol/L POC Glucose (mg/dL) 112 H (70-110) mg/dL Calcium 8.2 L (8.4-10.2) mg/dL
[2024-04-20] MEDS: ATORVASTATIN 40 MG TAB PO SCH (14:13)
[2024-04-20] MEDS: ASPIRIN 81 MG PO SCH (14:13)
--- NOTE | 2024-04-20 14:32 | XR ---
EXAMINATION TYPE: XR chest 1V portable DATE OF EXAM: 04/20/2024 Comparison: 04/16/2024 Clinical History: 84-year-old male with short of breath Findings: Heart normal size. Left PICC tip at the cavoatrial junction. There is a small left pleural effusion. Patchy bibasilar densities. Impression: Small left pleural effusion with some patchy bibasilar atelectasis or infiltrates. Increased on the l eft from prior. [facility], , 04/20/2024 2:30 PM
[2024-04-20 16:58] LABS: Glucose,Whole Blood 84 mg/dL (70-110)
[2024-04-20 20:28] LABS: Glucose,Whole Blood 116 mg/dL (70-110)
[2024-04-20] MEDS: BUDESONIDE 0.5 MG/2 ML NEBU INHALATION SCH (20:36)
[2024-04-21 02:25] LABS: Glucose,Whole Blood 91 mg/dL (70-110)
[2024-04-21 05:48] LABS: African American GFR (CKD) 74 (>60 ml/min/1.73 sqM); Anion Gap 2 mmol/L; Blood Urea Nitrogen 9 mg/dL (9-20); Calcium 8.2 mg/dL (8.4-10.2); Carbon Dioxide 27 mmol/L (22-30); Chloride 102 mmol/L (98-107); Glucose 80 mg/dL (74-99); Magnesium 1.8 mg/dL (1.6-2.3); Non-African American GFR(CKD) 64 (>60 ml/min/1.73 sqM); Sodium 131 mmol/L (137-145)
[2024-04-21 06:20] LABS: Glucose,Whole Blood 93 mg/dL (70-110)
[2024-04-21] MEDS: MONTELUKAST 10 MG TAB PO SCH (08:29)
[2024-04-21 08:38] LABS: Basophils # (A) 0.01 X 10*3/uL (0.00-0.10); Basophils % (A) 0.1 %; Eosinophils # (A) 0.27 X 10*3/uL (0.04-0.35); Eosinophils % (A) 3.6 %; HCT 28.4 % (39.6-50.0); HGB 8.7 g/dL (13.0-17.0); Lymphocytes # (A) 1.63 X 10*3/uL (0.90-5.00); Lymphocytes % (A) 21.4 %; MCH 29.4 pg (27.0-32.0); MCHC 30.6 g/dL (32.0-37.0); MCV 95.9 FL (80.0-97.0); Mean Platelet Volume 10.5 FL (9.5-12.2); Monocytes # (A) 0.68 X 10*3/uL (0.20-1.00); Monocytes % (A) 8.9 %; NRBC Per 100 WBC 0 X 10*3/uL (0.00-0.01); Neutrophils # (A) 4.93 X 10*3/uL (1.80-7.70); Neutrophils % (A) 64.9 %; Platelet Count 321 X 10*3/uL (140-440); RBC 2.96 X 10*6/uL (4.40-5.60); RDW 15.3 % (11.5-14.5)
--- NOTE | 2024-04-21 10:45 | P.PN ---
Subjective Progress Note Date: 04/21/24 CHIEF COMPLAINT: Bowel obstruction with obstructing right colon mass HISTORY OF PRESENT ILLNESS: Patient is postop day #11 status post exploratory laparotomy with right colectomy. Patient is sitting up in bed. He reports his pain is controlled. Denies any nausea or vomiting. He is having bowel moveme nts and flatus. He was weaned off the TPN. He has been tolerating full liquid diet. Afebrile. WBC 7.6 Hgb 8.7 platelets 321 PHYSICAL EXAM: VITAL SIGNS: Reviewed. GENERAL: no acute distress. ABDOMEN: Mildly distended. Incisional dressing clean dry and intact ASSESSMENT: 1. Bowel obstruction with obstructing mass of the right colon status post exploratory laparotomy with right colectomy 2. Colon cancer 3. Daily EtOH use 4. Right lower lobe infiltrate now on antibiotics PLAN: -Advance diet to low fiber -Continue pain management -Encourage incentive spirometer and use -Dr. Field reviewed pathology results with patient. He recommends oncology follow-up as outpatient. -Encourage patient to ambulate. Patient to work with PT OT -Okay to resume Plavix -DVT prophylaxis subcu heparin Physician Director Client note has been reviewed by physician. Signing provider agrees with the documented findings, assessment, and plan of care. Objective - Vital Signs Vital signs: Vital Signs Temp 98.7 F 04/21/24 08:00 Pulse 84 04/21/24 08:00 Resp 18 04/21/24 08:00 BP 142/69 04/21/24 08:00 Pulse Ox 94 L 04/21/24 08:00 FiO2 21 04/21/24 07:50 Intake & Output 04/20/24 04/21/24 04/21/24 18:59 06:59 18:59 Intake Total 222 Balance 222 Intake: Oral 222 - Labs CBC & Chem 7: 04/21/24 04:29 04/21/24 04:29 Labs: Abnormal Lab Results - Last 24 Hours (Table) 04/20/24 04/21/24 04/21/24 Range/Units 20:27 04:29 04:29 RBC 2.96 L (4.40-5.60) X 10*6/uL Hgb 8.7 L (13.0-17.0) g/dL Hct 28.4 L (39.6-50.0) % MCHC 30.6 L (32.0-37.0) g/dL RDW 15.3 H (11.5-14.5) % Immature Gran # 0.08 H (0.00-0.04) X 10*3/uL Sodium 131 L (137-145) mmol/L POC Glucose (mg/dL) 116 H (70-110) mg/dL Calcium 8.2 L (8.4-10.2) mg/dL
[2024-04-21 11:11] LABS: Glucose,Whole Blood 79 mg/dL (70-110)
[2024-04-21] MEDS: DILTIAZEM ORAL 30 MG TAB PO SCH (12:41)
[2024-04-21] MEDS: FOLIC ACID 1 MG TAB PO SCH (12:41)
--- NOTE | 2024-04-21 14:27 | P.PN ---
Subjective Progress Note Date: 04/21/24 Hospital course: Patient is a very pleasant 83-year-old male with a past medical history of COPD, CAD status post stenting, hypertension, and hyperlipidemia. He presented to the hospital on 04/10/2024 with a chief complaint of abdominal pain. Initial CT showed possible multilobar pneumonia mostly involving right middle lobe, dilated small bowel measuring up to 3.2 cm concerning for bowel obstruction, wall thickening of urinary bladder, diverticulosis. Found to have bowel obstruction with obstructing mass of right colon. General surgery consulted with patient for exploratory laparotomy with right colectomy on 04/10/2024. Physical exam: Patient seen and fully evaluated at bedside this morning. Discussed with patient and patient's encourage use of incentive spirometry and increase activity in room. Patient encouraged to be out of bed with all meals today. Pending course plan for likely discharge home with home care tomorrow. Vital signs reviewed and stable. General: Nontoxic, no distress and appears stated age. Derm: Skin warm and dry, normal coloration for ethnicity. Head: Atraumatic, normocephalic and symmetric. Eyes: EOMs intact, no lid lag, and anicteric sclera Mouth: no lip lesions, mucus membranes moist Cardiovascular: regular rate and rhythm with normal S1S2, Systolic murmur, positive posterior tibial pulses bilaterally, and cap refill < 2 seconds. Lungs: Respirations even, regular, and unlabored on room air. Lungs CTA bilaterally, no rhonchi, no rales, no wheezing, and no accessory muscle usage. Abdominal: Soft, Bowel sounds present. Postoperative dressing and abdominal binder in place. Ext: ROM intact. No gross muscle atrophy, 1+ pitting bilateral lower extremity edema edema, no contractures Neuro: Speech clear, face symmetrical and CN II-XII grossly intact with no noted focal neuro deficits Psych: Alert and oriented to person, place, time, and situation. Appropriate and pleasant affect. Assessment and Plan of Care: Small bowel obstruction secondary to grade 2 adenocarcinoma, status post right colectomy Normocytic anemia, anticipated outcome of surgery -Continue full liquid diet -General Surgery note reviewed, recommending outpatient follow-up with oncology -Continue pantoprazole 40 IV daily -Pain control with oral [place] as needed, IV Dilaudid as needed, monitor for sedation -Repeat CBC and BMP tomorrow -PT/OT Acute hypoxic respiratory failure COPD, without exacerbation -Possibly in the setting of atelectasis, x-ray showing small left pleural effusion with some patchy bibasilar atelectasis. -Continue to encourage use of incentive spirometer 10-15 times hourly while awake. -Patient successfully weaned back off of oxygen -Patient completed 5-day course of IV antibiotics with Unasyn. -Continue DuoNebs 4 times daily and every 2 hours as needed -Continue Pulmicort twice daily, and montelukast 10 mg daily History of CAD status post stent Dyslipidemia Hypertension -PCI recently done in October, cleared from general surgery patient may resume aspirin 81 mg daily, Plavix 75 mg daily and atorvastatin 40 mg daily. -Blood pressure 142/69, heart rate 84, okay to resume Cardizem 30 mg 3 times daily. Alcohol dependence -Out of window for alcohol withdrawal, [facility] protocol CKD stage III -Stable renal function Data and imaging reviewed: Chest x-ray reviewed showing small left pleural effusion and some patchy bibasilar atelectasis CBC showing normocytic anemia with hemoglobin of 8.7. BMP showing mild hyponatremia with sodium of 131. Magnesium 1.8. Vital signs reviewed. Blood pressure 142/69, heart rate 84, respiratory rate 18, temp 98.7 F, and SpO2 of 94% on room air. CODE STATUS: Full Code DVT prophylaxis: Heparin Anticipated discharge date: Likely tomorrow, encourage increased activity over the next [address]: Home with home care Patient was seen independently by Nurse Pracitioner. This document was prepared using Panna dictation software. Please allow for errors in monotype setter, while rare they do occur. Kashmir Henriquez NP rendered care for this patient independently, reviewed the findings and plan as documented in the note above. I did not physically speak with or examine the patient on this date. Objective - Vital Signs Vital signs: Vital Signs Temp 98.5 F 04/21/24 02:00 Pulse 76 04/21/24 07:57 Resp 15 04/20/24 20:00 BP 145/57 04/21/24 02:00 Pulse Ox 94 L 04/21/24 07:50 FiO2 21 04/21/24 07:50 Intake & Output 04/20/24 04/21/24 04/21/24 18:59 06:59 18:59 Intake Total 222 Balance 222 Intake: Oral 222 - Labs CBC & Chem 7: 04/22/24 09:24 04/21/24 04:29 Labs: Abnormal Lab Results - Last 24 Hours (Table) 04/20/24 04/21/24 04/21/24 Range/Units 20:27 04:29 04:29 RBC 2.96 L (4.40-5.60) X 10*6/uL Hgb 8.7 L (13.0-17.0) g/dL Hct 28.4 L (39.6-50.0) % MCHC 30.6 L (32.0-37.0) g/dL RDW 15.3 H (11.5-14.5) % Immature Gran # 0.08 H (0.00-0.04) X 10*3/uL Sodium 131 L (137-145) mmol/L POC Glucose (mg/dL) 116 H (70-110) mg/dL Calcium 8.2 L (8.4-10.2) mg/dL
[2024-04-21 15:08] VITALS: RESP 16
[2024-04-21 16:57] LABS: Glucose,Whole Blood 107 mg/dL (70-110)
[2024-04-21 21:50] LABS: Glucose,Whole Blood 114 mg/dL (70-110)
[2024-04-22 02:05] LABS: Glucose,Whole Blood 109 mg/dL (70-110)
[2024-04-22 05:38] LABS: Glucose,Whole Blood 91 mg/dL (70-110)
[2024-04-22 09:10] VITALS: BP 150/67; TEMP 98.4
[2024-04-22] MEDS: FERROUS SULFATE 325 MG TAB PO SCH (09:19)
[2024-04-22] MEDS: CLOPIDOGREL 75 MG TAB PO SCH (09:19)
[2024-04-22] MEDS: CYANOCOBALAMIN 500 MCG TAB PO SCH (09:19)
[2024-04-22 10:27] LABS: HCT 29.2 % (39.0-53.0); Hypochromasia Slight; MCH 30.8 pg (25.0-35.0); MCHC 32.6 g/dL (31.0-37.0); MCV 94.5 fL (80.0-100.0); Platelet Count 356 k/uL (150-450); RBC 3.09 m/uL (4.30-5.90); RDW 15.7 % (11.5-15.5)
[2024-04-22 10:39] LABS: HGB 9.5 gm/dL (13.0-17.5)
--- NOTE | 2024-04-22 10:57 | P.PN ---
Subjective Progress Note Date: 04/22/24 CHIEF COMPLAINT: Bowel obstruction with obstructing right colon mass HISTORY OF PRESENT ILLNESS: Patient is postop day #12 status post exploratory laparotomy with right colectomy. Patient is tolerating low fiber diet. He is having bowel movements. Afebrile. Has been up and ambulating. He feels ready for discharge. WBC 7.0 Hgb 9.5 PHYSICAL EXAM: VITAL SIGNS: Reviewed. GENERAL: no acute distress. ABDOMEN: Nondistended. Incisional dressing clean dry and intact ASSESSMENT: 1. Bowel obstruction with obstructing mass of the right colon status post exploratory laparotomy with right colectomy 2. Colon cancer 3. Daily EtOH use 4. Right lower lobe infiltrate completed antibiotics PLAN: -Patient can be discharged from surgical standpoint -Continue low fiber diet -Dr. Field reviewed pathology results with patient. He recommends oncology follow-up as outpatient. Physician Medical Record Librarian note has been reviewed by physician. Signing provider agrees with the documented findings, assessment, and plan of care. Objective - Vital Signs Vital signs: Vital Signs Temp 98.4 F 04/22/24 07:25 Pulse 80 04/22/24 09:17 Resp 16 04/22/24 07:25 BP 150/67 04/22/24 07:25 Pulse Ox 93 L 04/22/24 09:06 FiO2 21 04/22/24 09:06 Intake & Output 04/21/24 04/22/24 04/22/24 18:59 06:59 18:59 Intake Total 118 Output Total 300 Balance -182 Weight 68.039 kg Intake: Oral 118 Output: Urine 300 Other: Voiding Method Urinal Urinal # Voids 1 # Bowel Movements 1 - Labs CBC & Chem 7: 04/22/24 09:24 04/21/24 04:29 Labs: Abnormal Lab Results - Last 24 Hours (Table) 04/21/24 04/22/24 Range/Units 21:49 09: RBC 3.09 L (4.30-5.90) m/uL Hgb 9.5 L D (13.0-17.5) gm/dL Hct 29.2 L (39.0-53.0) % RDW 15.7 H (11.5-15.5) % POC Glucose (mg/dL) 114 H (70-110) mg/dL
--- NOTE | 2024-04-22 11:14 | P.DS ---
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 He presented to the hospital on 04/10/2024 with a chief complaint of abdominal pain. Initial CT showed possible multilobar pneumonia mostly involving right middle lobe, dilated small bowel measuring up to 3.2 cm concerning for bowel obstruction, wall thickening of urinary bladder, diverticulosis. Found to have bowel obstruction with obstructing mass of right colon. General surgery consulted with patient for exploratory laparotomy with right colectomy on 04/10/2024. Patient's pathology came back positive for grade 2 adenocarcinoma. At the time of discharge patient was tolerating his diet and was having bowel movements. Patient was cleared for discharge by general surgery. He was instructed follow-up with general surgery as well as oncology Patient seen and examined at bedside.[] General examination - Alert and Oriented 3 in NAD Heart - + S1S2 no murmurs Lungs - Clear to auscultation Abdomen abdominal binder Extremities - No edema [employer] - Moving all 4 extremities spontaneously Psych - Calm and cooperative A total of [33] minutes of time were spent preparing this complex discharge summary . Patient Condition at Discharge: Fair Plan - Discharge Summary Discharge Rx Participant: No New Discharge Prescriptions: Continue Atorvastatin [Lipitor] 40 mg PO DAILY #30 tab Aspirin 81 mg PO DAILY #90 tab dilTIAZem HCL 30 mg PO TID Folic Acid 1 mg PO DAILY Ferrous Sulfate [Feosol] 325 mg PO DAILY Cyanocobalamin (Vitamin B-12) [Vitamin B-12] 1,000 mcg PO DAILY Budesonide [Pulmicort] 0.5 mg INHALATION RT-BID Montelukast [Singulair] 10 mg PO DAILY Lactulose 10 - 20 gm PO DAILY PRN #473 ml PRN Reason: Constipation Clopidogrel [Plavix] 75 mg PO DAILY Albuterol Nebulized [Ventolin Nebulized] 2.5 mg INHALATION RT-QID Discharge Medication List Atorvastatin [Lipitor] 40 mg PO DAILY #30 tab 04/19/19 [Rx] Aspirin 81 mg PO DAILY #90 tab 10/13/23 [Rx] Clopidogrel [Plavix] 75 mg PO DAILY 01/04/24 [History] dilTIAZem HCL 30 mg PO TID 01/04/24 [History] Albuterol Nebulized [Ventolin Nebulized] 2.5 mg INHALATION RT-QID 04/08/24 [History] Budesonide [Pulmicort] 0.5 mg INHALATION RT-BID 04/08/24 [History] Cyanocobalamin (Vitamin B-12) [Vitamin B-12] 1,000 mcg PO DAILY 04/08/24 [History] Ferrous Sulfate [Feosol] 325 mg PO DAILY 04/08/24 [History] Folic Acid 1 mg PO DAILY 04/08/24 [History] Lactulose 10 - 20 gm PO DAILY PRN #473 ml 04/08/24 [Rx] Montelukast [Singulair] 10 mg PO DAILY 04/08/24 [History] Follow up Appointment(s)/Referral(s): Michael Villanueva MD [STAFF PHYSICIAN] - 1 Week [facility] Visiting Nurse, [NON-STAFF] - As Needed [facility] [Primary Care Provider] - 1-2 days Discharge Disposition: HOME WITH HOME HEALTH SERVICES
[2024-04-22 11:40] LABS: Glucose,Whole Blood 100 mg/dL (70-110)
[2024-04-22 11:50] VITALS: PULSE 80
== END 2024-04-22 13:50 | disposition home health service (06) | DRG 329 ==
LOC: EC 23:24 → 5NMEDONC 04-10 03:04 → 4SSUR 04-10 04:08
PROVIDERS: ADMIT Internal Medicine; ATTEND Internal Medicine
PROC: 0DTF0ZZ Resection of Right Large Intestine, Open Approach (ICD-10-PCS; principal; 2024-04-10 12:45)
PROC: 30233R1 Transfusion of Nonautologous Platelets into Peripheral Vein, Percutaneous Approach (ICD-10-PCS; 2024-04-11)
DX: C18.2 Malignant neoplasm of ascending colon (principal); J18.9 Pneumonia, unspecified organism; J96.01 Acute respiratory failure with hypoxia; K56.609 Unspecified intestinal obstruction, unspecified as to partial versus complete obstruction; J44.0 Chronic obstructive pulmonary disease with (acute) lower respiratory infection; J90 Pleural effusion, not elsewhere classified; J98.11 Atelectasis; D63.1 Anemia in chronic kidney disease; F10.20 Alcohol dependence, uncomplicated; I12.9 Hypertensive chronic kidney disease with stage 1 through stage 4 chronic kidney disease, or unspecified chronic kidney disease; N18.30 Chronic kidney disease, stage 3 unspecified; J43.9 Emphysema, unspecified; E78.5 Hyperlipidemia, unspecified; E87.70 Fluid overload, unspecified; I25.10 Atherosclerotic heart disease of native coronary artery without angina pectoris; Z96.1 Presence of intraocular lens; Z95.5 Presence of coronary angioplasty implant and graft; Z79.02 Long term (current) use of antithrombotics/antiplatelets; Z79.51 Long term (current) use of inhaled steroids; Z79.82 Long term (current) use of aspirin; Z79.899 Other long term (current) drug therapy; Z87.891 Personal history of nicotine dependence
CPT/HCPCS: 36415; 36573; 51798; 71045; 71046; 74018; 74176; 80048; 80053; 82330; 83036; 83690; 83735; 84100; 84145; 84478; 85025; 85027; 85610; 85730; 86850; 86900; 86901; 88309; 88341; 93005; 94640; 94760; 96361; 96365; 96375; 99285